=== PATIENT | female | born 1940 | race Caucasian/White ===

== ENCOUNTER 2018-03-30 19:52 | Emergency (ER) | payer MEDICARE, OTHER ==
[~2018-03-30] VITALS: Ht 157.5 cm; Wt 89.8 kg
[~2018-03-30 19:52] MED LIST: ACET325; AMLO5 PO; ANAS1 PO; ASPI325 PO; ASPI81CH; ASPI81CH PO; ATOR20 PO; BISA10S PR; CALCIUM/VIT D PO; CARV25 PO; CENTRUM SILVER1 EAC2 PO; CODLIVC PO; CVS DISPOSABLE399 ML; CVS DISPOSABLE399 ML PR; Colace100 MG PO; DICMIS75EC PO; DOCU100 PO; ENOX40I SC; ETOD400; FLAX PO; HYDACE5; HYDACE5 PO; HYDACE5325 PO; HYDR1TAB94 PO; HYDROCODON-ACE1 EAC3 PO; Hydrocodone-Ap1 EA23 PO; IBUPROFEN200 MG PO; Keflex500 MG PO; LISHYD2012 PO; LISI20; LOSA50 PO; LOSARTAN POTAS100 MG PO; LOSHYD100 PO; MECL25 PO; METO50ER; MULVITMIND PO; Milk Of Ma400 MG/5 M PO; Norco 5-325 Ta1 EACH PO; ONDA4 PO; OXYACE5T PO; POTA8 PO; Percocet 5-3251 EACH PO; SOLI5 PO; SULTRIDS PO; TORSE20 PO; TRAM50 PO; Tylophen500 MG PO; Voltaren100 GM TP; XARELTO10 MG PO; ZESTORETIC 20-121 EA PO; ZOCOR
[2018-03-30 20:51] LABS: BASOPHILS ABSOLUTE AUTO 0.02 K/mm3 (0.00-0.23); BASOPHILS PERCENT AUTO 0 % (0-2); EOSINOPHILS ABSOLUTE AUTO 0.06 K/mm3 (0.00-0.68); EOSINOPHILS PERCENT AUTO 1 % (0-6); Hematocrit 38.2 % (33.0-51.0); Hemoglobin 12.2 g/dL (11.5-16.0); IMMATURE GRAN ABSOLUTE AUTO 0.03 K/mm3 (0.00-0.10); IMMATURE GRAN PERCENT AUTO 1 % (0-1); LYMPHOCYTES ABSOLUTE AUTO 1.02 K/mm3 (0.84-5.20); LYMPHOCYTES PERCENT AUTO 16 % (21-46); MONOCYTES ABSOLUTE AUTO 0.61 K/mm3 (0.16-1.47); MONOCYTES PERCENT AUTO 9 % (4-13); Mean Corpuscular HGB 30.7 pg (26.0-34.0); Mean Corpuscular HGB Conc 31.9 g/dL (31.5-36.5); Mean Corpuscular Volume 96 fL (80-100); Mean Platelet Volume 9.5 fL (9.1-12.4); NEUTROPHILS ABSOLUTE AUTO 4.74 K/mm3 (1.96-9.15); NEUTROPHILS PERCENT AUTO 73 % (41-73); Platelet Count 159 K/mm3 (150-400); RDW Standard Deviation 42.7 fL (35.1-46.3); Red Blood Cell Count 3.97 M/mm3 (3.80-5.20); White Blood Cell Count 6.48 K/mm3 (4.00-11.30)
[2018-03-30 21:11] LABS: Alanine Aminotransfer (ALT/SGP 21 U/L (12-78); Albumin, Blood 3.4 g/dL (3.4-5.0); Albumin/Globulin Ratio 1.2 (0.8-1.8); Alk Phos 53 U/L (50-136); Anion Gap 8 mmol/L (6-16); Aspartate Aminotrans (AST/SGOT 15 U/L (12-37); Bilirubin, Total 0.2 mg/dL (0.1-1.0); Blood Urea Nitrogen 24 mg/dL (8-24); CO2, Blood 29 mmol/L (21-32); Calcium, Blood 8.9 mg/dL (8.5-10.1); Chloride, Blood 110 mmol/L (98-108); Creatinine, Blood 1.09 mg/dL (0.40-1.00); Globulin, Blood 2.9 g/dL (2.2-4.0); Glomerular Filtration Rate 52 (60-); Glucose, Blood 124 mg/dL (70-99); Potassium, Blood 3.7 mmol/L (3.5-5.5); Sodium, Blood 147 mmol/L (136-145); Total Protein, Blood 6.3 g/dL (6.4-8.2); Troponin I <0.015 ng/mL (0.000-0.040)
[2018-03-30 21:56] LABS: Source, Urine Clean Catch
[2018-03-30 22:00] LABS: Bilirubin, Urine Neg (Neg); Blood, Urine 4+ (Neg); Glucose Qualitative, Urine Neg (Neg); Ketones, Urine Neg (Neg); Leukocyte Esterase, Urine 2+ (Neg); Nitrite, Urine Neg (Neg); Protein, Urine 2+ (Neg); Urobilinogen, Urine NORM (Normal)
[2018-03-30 22:04] LABS: Appearance, Urine Clear (Clear); Color, Urine Yellow (P-Yellow)
[2018-03-30 22:06] LABS: Red Blood Cells, Urine 0-2 /hpf (0-2)
[2018-03-30 22:07] LABS: Bacteria Mod /hpf; Squamous Epithelial Cells Few /hpf (Few)
[2018-03-30] MEDS ORDERED: FURO20 PO (23:11)
[2018-03-30] MEDS ORDERED: TORSE20 PO (23:12)
[2018-03-30] MEDS ORDERED: CEPH500 PO (23:39)
[2018-03-30] MEDS ORDERED: Zofran Odt4 MG PO (23:39)
== END 2018-03-30 23:50 | disposition home or self-care (01) ==
LOC: ER 19:52
PROVIDERS: Emergency Medicine
DX: N39.0 Urinary tract infection, site not specified (principal); R55 Syncope and collapse; I10 Essential (primary) hypertension; E78.5 Hyperlipidemia, unspecified; Z79.899 Other long term (current) drug therapy; Z79.82 Long term (current) use of aspirin; Z87.891 Personal history of nicotine dependence
CPT/HCPCS: 36415; 71046; 80053; 81001; 83880; 84484; 85025; 87086; 93005; 93010; 96360; 99283; J7030

== ENCOUNTER 2018-07-08 17:32 | Emergency (ER) | payer MEDICARE, OTHER ==
[~2018-07-08] VITALS: Ht 157.5 cm; Wt 85.3 kg
[~2018-07-08 17:32] MED LIST changes: +CEPH500 PO; +FURO20 PO; +Zofran Odt4 MG PO
[2018-07-08 18:21] LABS: Source, Urine Clean Catch
[2018-07-08 18:32] LABS: Bilirubin, Urine Neg (Neg); Blood, Urine 3+ (Neg); Glucose Qualitative, Urine Neg (Neg); Ketones, Urine Neg (Neg); Leukocyte Esterase, Urine 1+ (Neg); Nitrite, Urine Neg (Neg); Protein, Urine 1+ (Neg); Urobilinogen, Urine NORM (Normal)
[2018-07-08 18:43] LABS: Color, Urine Yellow (P-Yellow)
[2018-07-08 18:44] LABS: Appearance, Urine Hazy (Clear)
[2018-07-08 18:45] LABS: Bacteria Rare /hpf; Mucus Light (0-Heavy); Red Blood Cells, Urine 0-2 /hpf (0-2); Squamous Epithelial Cells Mod /hpf (Few)
[2018-07-08 19:16] LABS: BASOPHILS ABSOLUTE AUTO 0.03 K/mm3 (0.00-0.23); BASOPHILS PERCENT AUTO 0 % (0-2); EOSINOPHILS ABSOLUTE AUTO 0.22 K/mm3 (0.00-0.68); EOSINOPHILS PERCENT AUTO 3 % (0-6); Hematocrit 44.2 % (33.0-51.0); Hemoglobin 14.3 g/dL (11.5-16.0); IMMATURE GRAN ABSOLUTE AUTO 0.02 K/mm3 (0.00-0.10); IMMATURE GRAN PERCENT AUTO 0 % (0-1); LYMPHOCYTES ABSOLUTE AUTO 2.11 K/mm3 (0.84-5.20); LYMPHOCYTES PERCENT AUTO 24 % (21-46); MONOCYTES ABSOLUTE AUTO 0.93 K/mm3 (0.16-1.47); MONOCYTES PERCENT AUTO 11 % (4-13); Mean Corpuscular HGB Conc 32.4 g/dL (31.5-36.5); Mean Corpuscular Volume 93 fL (80-100); Mean Platelet Volume 10.1 fL (9.1-12.4); NEUTROPHILS ABSOLUTE AUTO 5.47 K/mm3 (1.96-9.15); NEUTROPHILS PERCENT AUTO 62 % (41-73); Platelet Count 215 K/mm3 (150-400); RDW Coefficient Variation 12.7 % (11.7-14.2); RDW Standard Deviation 43.8 fL (35.1-46.3); Red Blood Cell Count 4.76 M/mm3 (3.80-5.20); White Blood Cell Count 8.78 K/mm3 (4.00-11.30)
[2018-07-08 19:35] LABS: Alanine Aminotransfer (ALT/SGP 23 U/L (12-78); Albumin, Blood 3.9 g/dL (3.4-5.0); Albumin/Globulin Ratio 1.1 (0.8-1.8); Alk Phos 56 U/L (50-136); Anion Gap 8 mmol/L (6-16); Aspartate Aminotrans (AST/SGOT 19 U/L (12-37); Bilirubin, Total 0.6 mg/dL (0.1-1.0); Blood Urea Nitrogen 33 mg/dL (8-24); CO2, Blood 28 mmol/L (21-32); Chloride, Blood 103 mmol/L (98-108); Creatinine, Blood 0.83 mg/dL (0.40-1.00); Globulin, Blood 3.6 g/dL (2.2-4.0); Glomerular Filtration Rate >60 (60-); Glucose, Blood 114 mg/dL (70-99); Potassium, Blood 3.8 mmol/L (3.5-5.5); Sodium, Blood 139 mmol/L (136-145); Total Protein, Blood 7.5 g/dL (6.4-8.2)
[2018-07-08] MEDS ORDERED: CEFD300 PO (19:39)
== END 2018-07-08 20:21 | disposition home or self-care (01) ==
LOC: ER 17:32
PROVIDERS: Emergency Medicine
DX: N39.0 Urinary tract infection, site not specified (principal); I10 Essential (primary) hypertension; Z79.899 Other long term (current) drug therapy; Z87.891 Personal history of nicotine dependence
CPT/HCPCS: 36415; 80053; 81001; 85025; 87086; 96361; 96374; 99283-25; J2405; J7030

== ENCOUNTER 2018-07-11 16:06 | Emergency (ER) | payer MEDICARE, OTHER ==
[~2018-07-11] VITALS: Ht 157.5 cm; Wt 85.3 kg
[~2018-07-11 16:06] MED LIST changes: +CEFD300 PO
[2018-07-11 18:44] LABS: Alanine Aminotransfer (ALT/SGP 18 U/L (12-78); Albumin, Blood 3.7 g/dL (3.4-5.0); Albumin/Globulin Ratio 1.2 (0.8-1.8); Alk Phos 55 U/L (50-136); Anion Gap 6 mmol/L (6-16); Aspartate Aminotrans (AST/SGOT 17 U/L (12-37); Bilirubin, Total 0.4 mg/dL (0.1-1.0); Blood Urea Nitrogen 17 mg/dL (8-24); Bun/Creatinine Ratio 22.3 (12.0-20.0); CO2, Blood 29 mmol/L (21-32); Calcium, Blood 9.2 mg/dL (8.5-10.1); Chloride, Blood 107 mmol/L (98-108); Creatinine, Blood 0.76 mg/dL (0.40-1.00); Globulin, Blood 3.2 g/dL (2.2-4.0); Glomerular Filtration Rate >60 (60-); Glucose, Blood 102 mg/dL (70-99); Potassium, Blood 3.8 mmol/L (3.5-5.5); Sodium, Blood 142 mmol/L (136-145); Total Protein, Blood 6.9 g/dL (6.4-8.2)
[2018-07-11 19:00] LABS: BASOPHILS ABSOLUTE AUTO 0.01 K/mm3 (0.00-0.23); BASOPHILS PERCENT AUTO 0 % (0-2); EOSINOPHILS ABSOLUTE AUTO 0.19 K/mm3 (0.00-0.68); EOSINOPHILS PERCENT AUTO 3 % (0-6); Hemoglobin 12.5 g/dL (11.5-16.0); IMMATURE GRAN ABSOLUTE AUTO 0.02 K/mm3 (0.00-0.10); IMMATURE GRAN PERCENT AUTO 0 % (0-1); LYMPHOCYTES ABSOLUTE AUTO 1.38 K/mm3 (0.84-5.20); LYMPHOCYTES PERCENT AUTO 23 % (21-46); MONOCYTES ABSOLUTE AUTO 0.68 K/mm3 (0.16-1.47); MONOCYTES PERCENT AUTO 11 % (4-13); Mean Corpuscular HGB Conc 31.3 g/dL (31.5-36.5); Mean Corpuscular Volume 96 fL (80-100); Mean Platelet Volume 9.5 fL (9.1-12.4); NEUTROPHILS ABSOLUTE AUTO 3.73 K/mm3 (1.96-9.15); NEUTROPHILS PERCENT AUTO 62 % (41-73); Platelet Count 159 K/mm3 (150-400); RDW Coefficient Variation 12.6 % (11.7-14.2); RDW Standard Deviation 44.9 fL (35.1-46.3); Red Blood Cell Count 4.17 M/mm3 (3.80-5.20); White Blood Cell Count 6.01 K/mm3 (4.00-11.30)
[2018-07-11 19:24] LABS: Source, Urine Voided
[2018-07-11 19:30] LABS: Bilirubin, Urine Neg (Neg); Blood, Urine 4+ (Neg); Glucose Qualitative, Urine Neg (Neg); Ketones, Urine Neg (Neg); Leukocyte Esterase, Urine 1+ (Neg); Nitrite, Urine Neg (Neg); Protein, Urine 2+ (Neg); Urobilinogen, Urine NORM (Normal)
[2018-07-11 19:36] LABS: Appearance, Urine Clear (Clear); Color, Urine Yellow (P-Yellow)
[2018-07-11 19:37] LABS: Bacteria Few /hpf; Squamous Epithelial Cells Few /hpf (Few)
[2018-07-11] MEDS ORDERED: HYDR1TAB94 PO (19:49)
== END 2018-07-11 20:08 | disposition home or self-care (01) ==
LOC: ER 16:06
PROVIDERS: Emergency Medicine
DX: Z79.899 Other long term (current) drug therapy (principal); I10 Essential (primary) hypertension; Z87.891 Personal history of nicotine dependence
CPT/HCPCS: 36415; 74176; 80053; 81001; 85025; 87086; J2405; J3010; J7030

== ENCOUNTER 2019-02-17 19:25 | Emergency (ER) | payer MEDICARE, OTHER ==
[~2019-02-17] VITALS: Ht 157.5 cm; Wt 83.0 kg
[2019-02-17 21:41] LABS: BASOPHILS ABSOLUTE AUTO 0.01 K/mm3 (0.00-0.23); BASOPHILS PERCENT AUTO 0 % (0-2); EOSINOPHILS ABSOLUTE AUTO 0.14 K/mm3 (0.00-0.68); EOSINOPHILS PERCENT AUTO 2 % (0-6); Hematocrit 40.1 % (33.0-51.0); Hemoglobin 12.7 g/dL (11.5-16.0); IMMATURE GRAN ABSOLUTE AUTO 0.02 K/mm3 (0.00-0.10); IMMATURE GRAN PERCENT AUTO 0 % (0-1); LYMPHOCYTES ABSOLUTE AUTO 0.68 K/mm3 (0.84-5.20); LYMPHOCYTES PERCENT AUTO 10 % (21-46); MONOCYTES ABSOLUTE AUTO 0.81 K/mm3 (0.16-1.47); MONOCYTES PERCENT AUTO 12 % (4-13); Mean Corpuscular HGB 30.6 pg (26.0-34.0); Mean Corpuscular HGB Conc 31.7 g/dL (31.5-36.5); Mean Corpuscular Volume 97 fL (80-100); Mean Platelet Volume 9.9 fL (9.1-12.4); NEUTROPHILS ABSOLUTE AUTO 5.41 K/mm3 (1.96-9.15); NEUTROPHILS PERCENT AUTO 77 % (41-73); Platelet Count 168 K/mm3 (150-400); RDW Coefficient Variation 12.1 % (11.7-14.2); Red Blood Cell Count 4.15 M/mm3 (3.80-5.20); White Blood Cell Count 7.07 K/mm3 (4.00-11.30)
[2019-02-17] MEDS ORDERED: CEPH500 PO (22:06)
[2019-02-17 22:23] LABS: Appearance, Urine Clear (Clear); Color, Urine Yellow (P-Yellow); Source, Urine Clean Catch; Specific Gravity, Urine 1.015 (1.003-1.022)
[2019-02-17 22:24] LABS: Amorphous Light (0-Heavy); Bacteria Few /hpf; Bilirubin, Urine 2+ (Neg); Blood, Urine 3+ (Neg); Glucose Qualitative, Urine Neg (Neg); Ketones, Urine Neg (Neg); Leukocyte Esterase, Urine Neg (Neg); Mucus Light (0-Heavy); Nitrite, Urine Pos (Neg); Protein, Urine 1+ (Neg); Red Blood Cells, Urine 0-2 /hpf (0-2); Squamous Epithelial Cells Not Seen /hpf (Few); Urobilinogen, Urine 2+ (Normal); White Blood Cells, Urine Rare /hpf (0-5)
== END 2019-02-17 22:32 | disposition home or self-care (01) ==
LOC: ER 19:25
PROVIDERS: Physician Assistant
DX: N39.0 Urinary tract infection, site not specified (principal); I10 Essential (primary) hypertension; M19.90 Unspecified osteoarthritis, unspecified site; M41.9 Scoliosis, unspecified; Z87.891 Personal history of nicotine dependence
CPT/HCPCS: 36415; 74176; 81001; 83690; 85025; 87086; 96374; 99284-25; J1170; P9612

== ENCOUNTER → 2019-02-23 | Outpatient (CLI) | payer MEDICARE, OTHER ==
[~2019-02-23] MED LIST changes: +Zofran4 MG PO
[2019-02-25 15:34] LABS: C DIFFICILE BY DNA AMP Positive (Negative)
== END | disposition home or self-care (01) ==
LOC: LAB 15:42 → LAB SHORT 15:42
PROVIDERS: Emergency Medicine
DX: R19.7 Diarrhea, unspecified (principal)
CPT/HCPCS: 87324; 87493

== ENCOUNTER 2019-06-23 20:01 | Emergency (ER) | payer MEDICARE, OTHER ==
[~2019-06-23] VITALS: Ht 157.5 cm; Wt 77.1 kg
[2019-06-23 20:51] LABS: BASOPHILS ABSOLUTE AUTO 0.03 K/mm3 (0.00-0.23); BASOPHILS PERCENT AUTO 1 % (0-2); EOSINOPHILS ABSOLUTE AUTO 0.12 K/mm3 (0.00-0.68); EOSINOPHILS PERCENT AUTO 2 % (0-6); Hematocrit 39.1 % (33.0-51.0); Hemoglobin 12.6 g/dL (11.5-16.0); IMMATURE GRAN ABSOLUTE AUTO 0.01 K/mm3 (0.00-0.10); IMMATURE GRAN PERCENT AUTO 0 % (0-1); LYMPHOCYTES ABSOLUTE AUTO 1.43 K/mm3 (0.84-5.20); LYMPHOCYTES PERCENT AUTO 26 % (21-46); MONOCYTES PERCENT AUTO 11 % (4-13); Mean Corpuscular HGB 30.5 pg (26.0-34.0); Mean Corpuscular HGB Conc 32.2 g/dL (31.5-36.5); Mean Corpuscular Volume 95 fL (80-100); Mean Platelet Volume 9.7 fL (9.1-12.4); NEUTROPHILS ABSOLUTE AUTO 3.26 K/mm3 (1.96-9.15); NEUTROPHILS PERCENT AUTO 60 % (41-73); Platelet Count 166 K/mm3 (150-400); RDW Coefficient Variation 12.4 % (11.7-14.2); RDW Standard Deviation 43.1 fL (35.1-46.3); Red Blood Cell Count 4.13 M/mm3 (3.80-5.20); White Blood Cell Count 5.45 K/mm3 (4.00-11.30)
[2019-06-23 21:09] LABS: Alanine Aminotransfer (ALT/SGP 14 U/L (12-78); Albumin, Blood 3.6 g/dL (3.4-5.0); Albumin/Globulin Ratio 1.2 (0.8-1.8); Alk Phos 47 U/L (50-136); Anion Gap 4 mmol/L (6-16); Aspartate Aminotrans (AST/SGOT 16 U/L (12-37); Bilirubin, Total 0.2 mg/dL (0.1-1.0); Blood Urea Nitrogen 20 mg/dL (8-24); Bun/Creatinine Ratio 27.6 (12.0-20.0); CO2, Blood 29 mmol/L (21-32); Calcium, Blood 9.1 mg/dL (8.5-10.1); Chloride, Blood 108 mmol/L (98-108); Creatinine, Blood 0.72 mg/dL (0.40-1.00); Glomerular Filtration Rate >60 (60-); Glucose, Blood 96 mg/dL (70-99); Potassium, Blood 3.8 mmol/L (3.5-5.5); Sodium, Blood 141 mmol/L (136-145); Total Protein, Blood 6.6 g/dL (6.4-8.2)
[2019-06-23 23:22] LABS: Source, Urine Clean Catch
[2019-06-23 23:25] LABS: Bilirubin, Urine Neg (Neg); Blood, Urine 3+ (Neg); Glucose Qualitative, Urine Neg (Neg); Ketones, Urine Neg (Neg); Leukocyte Esterase, Urine Neg (Neg); Nitrite, Urine Neg (Neg); Protein, Urine Neg (Neg); Specific Gravity, Urine 1.015 (1.003-1.022); Urobilinogen, Urine NORM (Normal)
[2019-06-23 23:27] LABS: Appearance, Urine Clear (Clear); Color, Urine Yellow (P-Yellow)
[2019-06-23 23:48] LABS: Bacteria Not Seen /hpf; Red Blood Cells, Urine Rare /hpf (0-2); Squamous Epithelial Cells Not Seen /hpf (Few); White Blood Cells, Urine Not Seen /hpf (0-5)
== END 2019-06-24 01:28 | disposition home or self-care (01) ==
LOC: ER 20:01
PROVIDERS: Physician Assistant
DX: R10.13 Epigastric pain (principal); I10 Essential (primary) hypertension; Z87.891 Personal history of nicotine dependence; Z79.899 Other long term (current) drug therapy; Z79.891 Long term (current) use of opiate analgesic
CPT/HCPCS: 36415; 74177; 76705; 80053; 81001; 83690; 85025; 93005; 93010; 96374; 99284-25; J2405; Q9967

== ENCOUNTER → 2019-08-24 | Outpatient (CLI) | payer MEDICARE, OTHER ==
[~2019-08-24] MED LIST changes: +TORSE20
== END | disposition home or self-care (01) ==
LOC: LAB SHORT 12:09 → LAB EV 12:09
DX: N39.0 Urinary tract infection, site not specified (principal)
CPT/HCPCS: 87086

== ENCOUNTER 2019-08-26 16:06 | Inpatient (IN) | payer MEDICARE, OTHER ==
[~2019-08-26] VITALS: Ht 157.5 cm; Wt 76.3 kg
[~2019-08-26 16:06] MED LIST changes: -TORSE20
[2019-08-26] MEDS ORDERED: TORSE20 (18:23)
[2019-08-26] MEDS ORDERED: ANAS1 PO (19:38)
[2019-08-26] MEDS ORDERED: LOSARTAN POTAS100 MG PO (19:39)
--- NOTE | 2019-08-27 04:42 | NUR ---
SHIFT SUMMARY PT NEW ED ADMIT THIS EVENING. REPORTS ABD PAIN THAT SHE DESCRIBES "CRAMPING" THAT SPANS ACROSS HER ENTIRE UPPER ABD. TENDER TO THE TOUCH. MEDICATED W/ 25 MCG FENTANYL X 2. PT SLEPT OFF AND ON THROUGHOUT THE NIGHT. ONE EPISODE OF NAUSEA. ZOFRAN GIVEN. BLOOD PRESSURE ELEVATED BUT IMPROVED THIS AM. PT DID REPORT THAT SHE WAS UNABLE TO TAKE ANY OF HER HOME MEDICATIONS YESTERDAY. SON AT BEDSIDE. PT DID REPORT HAVING LOOSE STOOLS AT HOME AND HAS HX OF CDIFF, ISOLATION PRECAUTIONS INITIATED. PT HAS HAD NO STOOLS SINCE ADMISSION. PT RESTING IN BED AT THIS TIME. WILL CONTINUE TO MONITOR.
[2019-08-27 05:05] LABS: Hematocrit 34.9 % (33.0-51.0); Hemoglobin 11.3 g/dL (11.5-16.0); Mean Corpuscular HGB 30.3 pg (26.0-34.0); Mean Corpuscular HGB Conc 32.4 g/dL (31.5-36.5); Mean Corpuscular Volume 94 fL (80-100); Mean Platelet Volume 9.7 fL (9.1-12.4); Platelet Count 130 K/mm3 (150-400); RDW Coefficient Variation 12.2 % (11.7-14.2); Red Blood Cell Count 3.73 M/mm3 (3.80-5.20); White Blood Cell Count 7.37 K/mm3 (4.00-11.30)
[2019-08-27 11:23] LABS: Source, Urine Clean Catch
[2019-08-27 11:35] LABS: Bilirubin, Urine Neg (Neg); Blood, Urine 3+ (Neg); Glucose Qualitative, Urine Neg (Neg); Ketones, Urine 1+ (Neg); Leukocyte Esterase, Urine Neg (Neg); Nitrite, Urine Neg (Neg); Protein, Urine 1+ (Neg); Urobilinogen, Urine NORM (Normal); pH, Urine 6.5 (5.0-8.0)
[2019-08-27 11:50] LABS: Appearance, Urine Clear (Clear); Color, Urine Yellow (P-Yellow)
[2019-08-27 11:51] LABS: Calcium Oxalate Crystals Mod /hpf; White Blood Cells, Urine 0-2 /hpf (0-5)
[2019-08-27 11:54] LABS: Bacteria Few /hpf; Squamous Epithelial Cells Few /hpf (Few)
--- NOTE | 2019-08-27 16:19 | NUR ---
SHIFT SUMMARY DR SUTTON CONSULTED/ROUNDED TODAY. PLAN IS FOR OBSERVATION AND SEE HOW SHE TOLERATES CLEAR LIQUID DIET, THEN RETURN HOME WITH SON. NO SURGICAL INTERVENTION PLANNED. DENIES N/V/D THIS SHIFT. I WAS ABLE TO GET THE UA, BUT NO STOOL FOR STOOL SAMPLE YET. PT STATES SHE HAS INTERMITTENT RUQ/LUQ ABD PAIN. IV ANTIBIOTICS SCHEDULED. CONTACT PRECAUTIONS FOR CDIFF. USES FWW AT BASELINE.
[2019-08-28 02:44] LABS: Adenovirus F 40/41 Not Detected (NOT DETECT); Astrovirus Not Detected (NOT DETECT); Campylobacter Sp Not Detected (NOT DETECT); Cryptosporidium Not Detected (NOT DETECT); Cyclospora Cayetanensis Not Detected (NOT DETECT); E. Coli O157 Not Detected (NOT DETECT); Entamoeba Histolytica Not Detected (NOT DETECT); Enteroaggregative E. coli-EAEC Not Detected (NOT DETECT); Enteropathogenic E. coli-EPEC Not Detected (NOT DETECT); Enterotoxigenic E. coli-ETEC Not Detected (NOT DETECT); Giardia Lamblia Not Detected (NOT DETECT); Norovirus GI/GII Not Detected (NOT DETECT); Plesiomonas Shigelloides Not Detected (NOT DETECT); Rotavirus A Not Detected (NOT DETECT); Salmonella Sp Not Detected (NOT DETECT); Sapovirus Not Detected (NOT DETECT); Shiga Toxin-prod E. coli-STEC Not Detected (NOT DETECT); Shigella/Enteroin E. coli-EIEC Not Detected (NOT DETECT); Vibrio Cholerae Not Detected (NOT DETECT); Vibrio Sp Not Detected (NOT DETECT); Yersinia Enterocolitica Not Detected (NOT DETECT)
[2019-08-28 04:52] LABS: BASOPHILS ABSOLUTE AUTO 0.02 K/mm3 (0.00-0.23); BASOPHILS PERCENT AUTO 0 % (0-2); EOSINOPHILS PERCENT AUTO 2 % (0-6); Hematocrit 37.2 % (33.0-51.0); Hemoglobin 11.7 g/dL (11.5-16.0); IMMATURE GRAN ABSOLUTE AUTO 0.02 K/mm3 (0.00-0.10); IMMATURE GRAN PERCENT AUTO 0 % (0-1); LYMPHOCYTES ABSOLUTE AUTO 0.86 K/mm3 (0.84-5.20); LYMPHOCYTES PERCENT AUTO 17 % (21-46); MONOCYTES ABSOLUTE AUTO 0.68 K/mm3 (0.16-1.47); MONOCYTES PERCENT AUTO 13 % (4-13); Mean Corpuscular HGB 30.2 pg (26.0-34.0); Mean Corpuscular HGB Conc 31.5 g/dL (31.5-36.5); Mean Corpuscular Volume 96 fL (80-100); NEUTROPHILS ABSOLUTE AUTO 3.52 K/mm3 (1.96-9.15); NEUTROPHILS PERCENT AUTO 68 % (41-73); Platelet Count 154 K/mm3 (150-400); Red Blood Cell Count 3.88 M/mm3 (3.80-5.20)
[2019-08-28 05:17] LABS: Anion Gap 6 mmol/L (6-16); Blood Urea Nitrogen 12 mg/dL (8-24); CO2, Blood 29 mmol/L (21-32); Calcium, Blood 8.4 mg/dL (8.5-10.1); Chloride, Blood 110 mmol/L (98-108); Glomerular Filtration Rate >60 (60-); Glucose, Blood 92 mg/dL (70-99); Potassium, Blood 3.3 mmol/L (3.5-5.5); Sodium, Blood 145 mmol/L (136-145)
--- NOTE | 2019-08-28 05:33 | NUR ---
SUMMARY NO ACUTE CHANGES NOTED FROM ASSESSMENT. VSS, RESP UNLABORED, ON ROOM AIR. PT REMAINS A&O X4. PT HAD 2 BM'S THROUGH THE NIGHT AND STATES "THEY ARE GETTING MORE FORMED", A STOOL SAMPLE WAS COLLECTED AND SENT PER ORDERS. PT C/O ABD PAIN 07/22, IV FENT WAS GIVEN X1 PER PT REQUEST. IV ABX INFUSED PER EMAR. PT IS A 1 ASSIST TO THE BATHROOM USING FWW, HER SON IS AT THE BEDSIDE AND ASSIST'S WITH CARE. CALL LIGHT IN REACH, MARY.
--- NOTE | 2019-08-28 11:30 | NUR ---
LATE ENTRY FOR 1130. WAS IN ROOM WITH DR DE SOUZA WHEN HE WAS ASSESSING PATIENT. ASKED DR DE SOUZA ABOUT HOW PATIENT'S C-DIFF WAS TO BE TREATED SHE WAS CURRENTLY ON NOTHING FOR IT, STATED THAT GI PANEL RESULTS INDICATED THAT PATIENT WAS COLONIZED BY C-DIFF BUT DID NOT ACTUALLY HAVE ACTIVE C-DIFF. DR DE SOUZA STATED SHE DID NOT NEED ABX COVERAGE FOR C-DIFF SINCE PT DOES NOT HAVE ACTIVE INFECTION.
--- NOTE | 2019-08-28 13:55 | NUR ---
PATIENT COMPLAINED OF DRY, SORE THROAT. GAVE PATIENT SOME WARM SALT WATER TO GARGLE. ALSO GAVE THE PATIENT SOME MOUTH MOISURIZER ANOTHER OPTION.
--- NOTE | 2019-08-28 15:17 | NUR ---
SHIFT SUMMARY THE PATIENT HAS HAD AN UNEVENTFUL DAY. HIGH BLOOD PRESSURE THIS MORNING WHICH RESPONDED WELL TO AM MEDS. CONTINUES ON IV ABX WITHOUT S/SX OF ADVERSE REACTIONS NOTED OR REPORTED. NO ACUTE CHANGES TO REPORT AT THIS TIME. WILL CONTINUE TO MONITOR AND PROVIDE CARE NEEDED.
[2019-08-29 06:45] LABS: BASOPHILS ABSOLUTE AUTO 0.02 K/mm3 (0.00-0.23); BASOPHILS PERCENT AUTO 0 % (0-2); EOSINOPHILS ABSOLUTE AUTO 0.11 K/mm3 (0.00-0.68); EOSINOPHILS PERCENT AUTO 2 % (0-6); Hemoglobin 11.8 g/dL (11.5-16.0); IMMATURE GRAN ABSOLUTE AUTO 0.02 K/mm3 (0.00-0.10); IMMATURE GRAN PERCENT AUTO 0 % (0-1); LYMPHOCYTES PERCENT AUTO 19 % (21-46); MONOCYTES ABSOLUTE AUTO 0.62 K/mm3 (0.16-1.47); MONOCYTES PERCENT AUTO 13 % (4-13); Mean Corpuscular HGB 30.5 pg (26.0-34.0); Mean Corpuscular HGB Conc 31.9 g/dL (31.5-36.5); Mean Corpuscular Volume 96 fL (80-100); Mean Platelet Volume 9.6 fL (9.1-12.4); NEUTROPHILS ABSOLUTE AUTO 3.16 K/mm3 (1.96-9.15); NEUTROPHILS PERCENT AUTO 66 % (41-73); Platelet Count 162 K/mm3 (150-400); RDW Standard Deviation 42.2 fL (35.1-46.3); Red Blood Cell Count 3.87 M/mm3 (3.80-5.20); White Blood Cell Count 4.83 K/mm3 (4.00-11.30)
[2019-08-29 07:08] LABS: Anion Gap 5 mmol/L (6-16); Blood Urea Nitrogen 10 mg/dL (8-24); Bun/Creatinine Ratio 13.5 (12.0-20.0); CO2, Blood 31 mmol/L (21-32); Calcium, Blood 8.7 mg/dL (8.5-10.1); Chloride, Blood 109 mmol/L (98-108); Creatinine, Blood 0.74 mg/dL (0.40-1.00); Glomerular Filtration Rate >60 (60-); Glucose, Blood 97 mg/dL (70-99); Potassium, Blood 3.3 mmol/L (3.5-5.5); Sodium, Blood 145 mmol/L (136-145)
--- NOTE | 2019-08-29 08:01 | NUR ---
SUMMARY PTS BP INCREASING THIS AM. NOTED YESTERDAY AM WELL. PT NOW REPORTS HAS HAD VERTIGO AT HOME AFTER AM MEDS AND WAITS TO AMBULATE.DISCUSSED TREND AND MED TIMES WITH DAY RN WHO AGREES TO FOLLOW UP.
--- NOTE | 2019-08-29 15:12 | NUR ---
LOOSE BM NOTED LIQUID LOOSE BM REPORTED BY TATTOO TECHNICIAN
--- NOTE | 2019-08-29 18:16 | NUR ---
SHIFT SUMMARY PT'S SON IS QUITE ANXIOUS REGARDING PT'S CARE. PT'S IV LEAKED AND WAS REMOVED. A NEW IV WAS STARTED BY PROCEDURE NURSE. PT RECEIVING SCHEDULED IV ANTIBIOTICS. PT HAS EXPERIENCED LOOSE BM'S LATER IN THIS SHIFT. SHE IS TOLERATING ADVANCING THE DIET WELL. NO N/V
[2019-08-30 05:27] LABS: BASOPHILS ABSOLUTE AUTO 0.03 K/mm3 (0.00-0.23); BASOPHILS PERCENT AUTO 1 % (0-2); EOSINOPHILS ABSOLUTE AUTO 0.19 K/mm3 (0.00-0.68); EOSINOPHILS PERCENT AUTO 3 % (0-6); Hematocrit 37.3 % (33.0-51.0); Hemoglobin 11.9 g/dL (11.5-16.0); IMMATURE GRAN ABSOLUTE AUTO 0.03 K/mm3 (0.00-0.10); IMMATURE GRAN PERCENT AUTO 1 % (0-1); LYMPHOCYTES ABSOLUTE AUTO 1.18 K/mm3 (0.84-5.20); LYMPHOCYTES PERCENT AUTO 20 % (21-46); MONOCYTES ABSOLUTE AUTO 0.69 K/mm3 (0.16-1.47); MONOCYTES PERCENT AUTO 12 % (4-13); Mean Corpuscular HGB 30.6 pg (26.0-34.0); Mean Corpuscular HGB Conc 31.9 g/dL (31.5-36.5); Mean Corpuscular Volume 96 fL (80-100); NEUTROPHILS ABSOLUTE AUTO 3.66 K/mm3 (1.96-9.15); NEUTROPHILS PERCENT AUTO 63 % (41-73); Platelet Count 168 K/mm3 (150-400); RDW Coefficient Variation 12.1 % (11.7-14.2); RDW Standard Deviation 42.5 fL (35.1-46.3); Red Blood Cell Count 3.89 M/mm3 (3.80-5.20); White Blood Cell Count 5.78 K/mm3 (4.00-11.30)
[2019-08-30 05:52] LABS: Anion Gap 5 mmol/L (6-16); Blood Urea Nitrogen 16 mg/dL (8-24); Bun/Creatinine Ratio 20.9 (12.0-20.0); CO2, Blood 30 mmol/L (21-32); Calcium, Blood 8.9 mg/dL (8.5-10.1); Chloride, Blood 108 mmol/L (98-108); Creatinine, Blood 0.77 mg/dL (0.40-1.00); Glomerular Filtration Rate >60 (60-); Glucose, Blood 99 mg/dL (70-99); Potassium, Blood 3.8 mmol/L (3.5-5.5); Sodium, Blood 143 mmol/L (136-145)
--- NOTE | 2019-08-30 07:30 | NUR ---
SHIFT SUMMARY PT A/O NO C/O PAIN. SAYS RUMBLING IN ABD HAS STOPPED BUT SAYS SHE IS STILL URINATING AND HAVING BMS A LOT. WHEN ASKED IF THE BM WAS LIQUID SHE SAID IT WAS "REGULAR" STOOL. BOTH HER SON AND HER BOTH SAY THE IV ABX ARE MAKING HER URINATE AND BM A LOT AND REFUSED THE AM DOSE OF ABX SAYING THE DR HAD SAID SHE "COULD STOP THE ABX NOW". SHE WAS ABLE TO SLEEP T/O BUT SAYS SHE HAD TO USE BA A LOT. CALL LIGHT IN REACH.
[2019-08-30] MEDS ORDERED: ONDA4ODT MM (10:15)
[2019-08-30] MEDS ORDERED: Augmentin 875-1 EACH PO (10:16)
[2019-08-30] MEDS ORDERED: Kaon-Cl40 MEQ/15 PO (10:18)
[2019-08-30] MEDS ORDERED: Florastor250 MG PO (10:18)
[2019-08-30] MEDS ORDERED: SENN187 PO (10:19)
--- NOTE | 2019-08-30 11:35 | NUR ---
Discharge Summary A/Ox4. Patient discharged to home via personal vehicle driven by son, escorted via w/c by INTERNET SALES DIRECTOR. IV removed, WNL. Discharge and educational materials reviewed with patient, no questions at this time. F/U appointments are scheduled and given to patient. Personal belongings sent home including purse and walker. Meds faxed to preferred pharmacy.
== END 2019-08-30 11:35 | disposition home or self-care (01) | DRG 392 ==
LOC: ER 16:06 → MEDS 16:07 → ENPENDDIS 08-30 11:00 → MEDS 08-30 11:35
PROVIDERS: Internal Medicine; ADMIT Hospitalist
DX: K57.20 Diverticulitis of large intestine with perforation and abscess without bleeding (principal); N39.0 Urinary tract infection, site not specified; I50.32 Chronic diastolic (congestive) heart failure; A04.72 Enterocolitis due to Clostridium difficile, not specified as recurrent; I11.0 Hypertensive heart disease with heart failure; E87.6 Hypokalemia; R19.7 Diarrhea, unspecified; M81.0 Age-related osteoporosis without current pathological fracture; M19.90 Unspecified osteoarthritis, unspecified site; Z87.891 Personal history of nicotine dependence; Z79.811 Long term (current) use of aromatase inhibitors; Z79.899 Other long term (current) drug therapy; Z85.3 Personal history of malignant neoplasm of breast
CPT/HCPCS: 0097U; 36415; 74022; 74177; 80048; 80053; 81001; 83690; 85025; 85027; 87086; 87324; 96361; 96365; 96366; 96367; 96368; 96375; 96376; 99284; G0378; J0744; J2405; J2543; J3010; J7030; J7050; Q9967

== ENCOUNTER 2019-09-11 19:27 | Emergency (ER) | payer MEDICARE, OTHER ==
[~2019-09-11] VITALS: Ht 157.5 cm; Wt 77.1 kg
[~2019-09-11 19:27] MED LIST changes: +Augmentin 875-1 EACH PO; +Florastor250 MG PO; +Kaon-Cl40 MEQ/15 PO; +ONDA4ODT MM; +SENN187 PO; +TORSE20
[2019-09-11 20:35] LABS: BASOPHILS ABSOLUTE AUTO 0.02 K/mm3 (0.00-0.23); BASOPHILS PERCENT AUTO 0 % (0-2); EOSINOPHILS ABSOLUTE AUTO 0.18 K/mm3 (0.00-0.68); EOSINOPHILS PERCENT AUTO 3 % (0-6); Hematocrit 37.7 % (33.0-51.0); Hemoglobin 11.8 g/dL (11.5-16.0); IMMATURE GRAN ABSOLUTE AUTO 0.01 K/mm3 (0.00-0.10); IMMATURE GRAN PERCENT AUTO 0 % (0-1); LYMPHOCYTES ABSOLUTE AUTO 1.32 K/mm3 (0.84-5.20); LYMPHOCYTES PERCENT AUTO 24 % (21-46); MONOCYTES ABSOLUTE AUTO 0.72 K/mm3 (0.16-1.47); MONOCYTES PERCENT AUTO 13 % (4-13); Mean Corpuscular HGB 30.6 pg (26.0-34.0); Mean Corpuscular HGB Conc 31.3 g/dL (31.5-36.5); Mean Corpuscular Volume 98 fL (80-100); Mean Platelet Volume 10.3 fL (9.1-12.4); NEUTROPHILS ABSOLUTE AUTO 3.22 K/mm3 (1.96-9.15); NEUTROPHILS PERCENT AUTO 59 % (41-73); Platelet Count 181 K/mm3 (150-400); RDW Coefficient Variation 12.1 % (11.7-14.2); RDW Standard Deviation 43.8 fL (35.1-46.3); Red Blood Cell Count 3.86 M/mm3 (3.80-5.20); White Blood Cell Count 5.47 K/mm3 (4.00-11.30)
[2019-09-11 20:48] LABS: Alanine Aminotransfer (ALT/SGP 13 U/L (12-78); Albumin, Blood 3.2 g/dL (3.4-5.0); Alk Phos 46 U/L (50-136); Anion Gap 5 mmol/L (6-16); Aspartate Aminotrans (AST/SGOT 17 U/L (12-37); Bilirubin, Total 0.3 mg/dL (0.1-1.0); Blood Urea Nitrogen 23 mg/dL (8-24); Bun/Creatinine Ratio 30.2 (12.0-20.0); CO2, Blood 31 mmol/L (21-32); Calcium, Blood 9.4 mg/dL (8.5-10.1); Chloride, Blood 108 mmol/L (98-108); Creatinine, Blood 0.76 mg/dL (0.40-1.00); Globulin, Blood 3.1 g/dL (2.2-4.0); Glomerular Filtration Rate >60 (60-); Glucose, Blood 94 mg/dL (70-99); Sodium, Blood 144 mmol/L (136-145); Total Protein, Blood 6.3 g/dL (6.4-8.2)
[2019-09-11 21:09] LABS: Source, Urine Clean Catch
[2019-09-11 21:14] LABS: Bilirubin, Urine Neg (Neg); Blood, Urine 2+ (Neg); Glucose Qualitative, Urine Neg (Neg); Ketones, Urine Neg (Neg); Leukocyte Esterase, Urine 2+ (Neg); Nitrite, Urine Neg (Neg); Protein, Urine Neg (Neg); Urobilinogen, Urine NORM (Normal)
[2019-09-11 21:23] LABS: Appearance, Urine Clear (Clear); Color, Urine Pale Yellow (P-Yellow)
[2019-09-11 21:26] LABS: Amorphous Light (0-Heavy); Bacteria Few /hpf; Red Blood Cells, Urine Not Seen /hpf (0-2); Squamous Epithelial Cells Rare /hpf (Few); White Blood Cells, Urine 0-2 /hpf (0-5)
[2019-09-11] MEDS ORDERED: Bentyl10 MG PO (21:39)
== END 2019-09-11 22:45 | disposition home or self-care (01) ==
LOC: ER 19:27 → SURS 21:36 → ER 21:36
PROVIDERS: Physician Assistant
DX: R10.84 Generalized abdominal pain (principal); I10 Essential (primary) hypertension; Z79.899 Other long term (current) drug therapy; Z87.891 Personal history of nicotine dependence
CPT/HCPCS: 36415; 74177; 80053; 81001; 83690; 84484; 85025; 87086; 93005; 93010; 96360-59; 99284-25; J7030; Q9967

== ENCOUNTER 2019-09-29 22:15 | Emergency (ER) | payer MEDICARE, OTHER ==
[~2019-09-29] VITALS: Ht 157.5 cm; Wt 77.1 kg
[~2019-09-29 22:15] MED LIST changes: +Bentyl10 MG PO
[2019-09-29 23:04] LABS: BASOPHILS ABSOLUTE AUTO 0.02 K/mm3 (0.00-0.23); BASOPHILS PERCENT AUTO 0 % (0-2); EOSINOPHILS ABSOLUTE AUTO 0.16 K/mm3 (0.00-0.68); EOSINOPHILS PERCENT AUTO 3 % (0-6); Hematocrit 40.6 % (33.0-51.0); Hemoglobin 13.1 g/dL (11.5-16.0); IMMATURE GRAN ABSOLUTE AUTO 0.01 K/mm3 (0.00-0.10); IMMATURE GRAN PERCENT AUTO 0 % (0-1); LYMPHOCYTES ABSOLUTE AUTO 1.43 K/mm3 (0.84-5.20); LYMPHOCYTES PERCENT AUTO 26 % (21-46); MONOCYTES PERCENT AUTO 11 % (4-13); Mean Corpuscular HGB 29.9 pg (26.0-34.0); Mean Corpuscular HGB Conc 32.3 g/dL (31.5-36.5); Mean Corpuscular Volume 93 fL (80-100); Mean Platelet Volume 9.6 fL (9.1-12.4); NEUTROPHILS ABSOLUTE AUTO 3.24 K/mm3 (1.96-9.15); NEUTROPHILS PERCENT AUTO 59 % (41-73); Platelet Count 165 K/mm3 (150-400); RDW Coefficient Variation 12.1 % (11.7-14.2); RDW Standard Deviation 41.8 fL (35.1-46.3); Red Blood Cell Count 4.38 M/mm3 (3.80-5.20); White Blood Cell Count 5.46 K/mm3 (4.00-11.30)
[2019-09-29 23:19] LABS: Alanine Aminotransfer (ALT/SGP 15 U/L (12-78); Albumin, Blood 3.8 g/dL (3.4-5.0); Albumin/Globulin Ratio 1.2 (0.8-1.8); Alk Phos 53 U/L (50-136); Anion Gap 6 mmol/L (6-16); Aspartate Aminotrans (AST/SGOT 18 U/L (12-37); Bilirubin, Total 0.4 mg/dL (0.1-1.0); Blood Urea Nitrogen 17 mg/dL (8-24); Bun/Creatinine Ratio 24.3 (12.0-20.0); CO2, Blood 31 mmol/L (21-32); Chloride, Blood 105 mmol/L (98-108); Globulin, Blood 3.2 g/dL (2.2-4.0); Glomerular Filtration Rate >60 (60-); Glucose, Blood 100 mg/dL (70-99); Potassium, Blood 3.6 mmol/L (3.5-5.5); Sodium, Blood 142 mmol/L (136-145)
[2019-09-30 01:19] LABS: Source, Urine Clean Catch
[2019-09-30 01:21] LABS: Bilirubin, Urine Neg (Neg); Blood, Urine 2+ (Neg); Glucose Qualitative, Urine Neg (Neg); Ketones, Urine Neg (Neg); Leukocyte Esterase, Urine Neg (Neg); Nitrite, Urine Neg (Neg); Protein, Urine Neg (Neg); Urobilinogen, Urine NORM (Normal)
[2019-09-30 01:24] LABS: Appearance, Urine Clear (Clear); Color, Urine Yellow (P-Yellow)
[2019-09-30 01:27] LABS: White Blood Cells, Urine 0-2 /hpf (0-5)
[2019-09-30 01:28] LABS: Bacteria Few /hpf; Squamous Epithelial Cells Few /hpf (Few)
== END 2019-09-30 03:12 | disposition home or self-care (01) ==
LOC: ER 22:15
PROVIDERS: Emergency Medicine
DX: R10.84 Generalized abdominal pain (principal); I10 Essential (primary) hypertension; M41.9 Scoliosis, unspecified; M19.90 Unspecified osteoarthritis, unspecified site; M81.0 Age-related osteoporosis without current pathological fracture; M54.9 Dorsalgia, unspecified; G89.29 Other chronic pain; Z79.899 Other long term (current) drug therapy; Z87.891 Personal history of nicotine dependence
CPT/HCPCS: 36415; 74176; 80053; 81001; 83690; 85025; 93005; 93010; 96361; 96374; 96375; 99284-25; J2405; J3010; J7030

== ENCOUNTER 2019-10-07 08:51 | Emergency (ER) | payer MEDICARE, OTHER ==
[~2019-10-07] VITALS: Ht 177.8 cm; Wt 76.2 kg
[2019-10-07 10:31] LABS: BASOPHILS ABSOLUTE AUTO 0.02 K/mm3 (0.00-0.23); BASOPHILS PERCENT AUTO 0 % (0-2); EOSINOPHILS ABSOLUTE AUTO 0.12 K/mm3 (0.00-0.68); EOSINOPHILS PERCENT AUTO 2 % (0-6); Hematocrit 40.4 % (33.0-51.0); Hemoglobin 12.7 g/dL (11.5-16.0); IMMATURE GRAN ABSOLUTE AUTO 0.01 K/mm3 (0.00-0.10); IMMATURE GRAN PERCENT AUTO 0 % (0-1); LYMPHOCYTES ABSOLUTE AUTO 1.24 K/mm3 (0.84-5.20); LYMPHOCYTES PERCENT AUTO 23 % (21-46); MONOCYTES ABSOLUTE AUTO 0.52 K/mm3 (0.16-1.47); MONOCYTES PERCENT AUTO 10 % (4-13); Mean Corpuscular HGB Conc 31.4 g/dL (31.5-36.5); Mean Corpuscular Volume 95 fL (80-100); Mean Platelet Volume 10.6 fL (9.1-12.4); NEUTROPHILS ABSOLUTE AUTO 3.49 K/mm3 (1.96-9.15); NEUTROPHILS PERCENT AUTO 65 % (41-73); Platelet Count 155 K/mm3 (150-400); RDW Coefficient Variation 12.1 % (11.7-14.2); RDW Standard Deviation 42.5 fL (35.1-46.3); Red Blood Cell Count 4.24 M/mm3 (3.80-5.20)
[2019-10-07 10:43] LABS: Alanine Aminotransfer (ALT/SGP 15 U/L (12-78); Albumin, Blood 3.4 g/dL (3.4-5.0); Albumin/Globulin Ratio 1.1 (0.8-1.8); Alk Phos 44 U/L (50-136); Anion Gap 6 mmol/L (6-16); Aspartate Aminotrans (AST/SGOT 13 U/L (12-37); Bilirubin, Total 0.3 mg/dL (0.1-1.0); Blood Urea Nitrogen 26 mg/dL (8-24); Bun/Creatinine Ratio 40.4 (12.0-20.0); CO2, Blood 27 mmol/L (21-32); Calcium, Blood 9.3 mg/dL (8.5-10.1); Chloride, Blood 111 mmol/L (98-108); Creatinine, Blood 0.64 mg/dL (0.40-1.00); Globulin, Blood 3.1 g/dL (2.2-4.0); Glomerular Filtration Rate >60 (60-); Glucose, Blood 117 mg/dL (70-99); Sodium, Blood 144 mmol/L (136-145); Total Protein, Blood 6.5 g/dL (6.4-8.2)
[2019-10-07 11:35] LABS: Source, Urine Clean Catch
[2019-10-07 11:38] LABS: Appearance, Urine Clear (Clear); Bilirubin, Urine Neg (Neg); Blood, Urine 2+ (Neg); Color, Urine Yellow (P-Yellow); Glucose Qualitative, Urine Neg (Neg); Ketones, Urine Neg (Neg); Leukocyte Esterase, Urine Neg (Neg); Nitrite, Urine Neg (Neg); Protein, Urine Neg (Neg); Urobilinogen, Urine NORM (Normal)
[2019-10-07 11:49] LABS: White Blood Cells, Urine 0-2 /hpf (0-5)
[2019-10-07 11:50] LABS: Squamous Epithelial Cells Not Seen /hpf (Few)
[2019-10-07 11:51] LABS: Bacteria Not Seen /hpf
[2019-10-07] MEDS ORDERED: PROM25 PO (12:59)
== END 2019-10-07 13:52 | disposition home or self-care (01) ==
LOC: ER 08:51
PROVIDERS: Emergency Medicine
DX: K59.00 Constipation, unspecified (principal); R42 Dizziness and giddiness; M54.9 Dorsalgia, unspecified; G89.29 Other chronic pain; I11.0 Hypertensive heart disease with heart failure; I50.9 Heart failure, unspecified; M81.0 Age-related osteoporosis without current pathological fracture; Z79.899 Other long term (current) drug therapy; Z87.891 Personal history of nicotine dependence
CPT/HCPCS: 36415; 74022; 80053; 81001; 83690; 85025; 96361; 96374; 96375; 99283-25; J2550; J3010; J7030

== ENCOUNTER → 2020-03-11 | Outpatient (CLI) | payer MEDICARE, OTHER ==
[~2020-03-11] MED LIST changes: +CEFU250T47 PO; +CEFUROXIME; +Klor-Con 1010 MEQ; +Neurontin 300300 MG PO; +PROM25 PO
== END | disposition home or self-care (01) ==
LOC: LAB EV 16:30 → LAB SHORT 16:30
DX: R30.0 Dysuria (principal)
CPT/HCPCS: 87086

== ENCOUNTER 2020-03-14 22:00 | Emergency (ER) | payer MEDICARE, OTHER ==
[~2020-03-14] VITALS: Ht 167.6 cm; Wt 75.3 kg
[~2020-03-14 22:00] MED LIST changes: -CEFU250T47 PO; -CEFUROXIME; -Klor-Con 1010 MEQ; -Neurontin 300300 MG PO
[2020-03-14] MEDS ORDERED: Klor-Con 1010 MEQ (22:11)
[2020-03-14] MEDS ORDERED: CEFUROXIME (22:13)
[2020-03-14] MEDS ORDERED: CEFU250T47 PO (22:14)
[2020-03-14 22:58] LABS: BASOPHILS ABSOLUTE AUTO 0.02 K/mm3 (0.00-0.23); BASOPHILS PERCENT AUTO 0 % (0-2); EOSINOPHILS ABSOLUTE AUTO 0.17 K/mm3 (0.00-0.68); EOSINOPHILS PERCENT AUTO 3 % (0-6); Hematocrit 39.8 % (33.0-51.0); Hemoglobin 12.6 g/dL (11.5-16.0); IMMATURE GRAN ABSOLUTE AUTO 0.01 K/mm3 (0.00-0.10); IMMATURE GRAN PERCENT AUTO 0 % (0-1); LYMPHOCYTES ABSOLUTE AUTO 1.45 K/mm3 (0.84-5.20); LYMPHOCYTES PERCENT AUTO 27 % (21-46); MONOCYTES ABSOLUTE AUTO 0.64 K/mm3 (0.16-1.47); MONOCYTES PERCENT AUTO 12 % (4-13); Mean Corpuscular HGB 29.8 pg (26.0-34.0); Mean Corpuscular HGB Conc 31.7 g/dL (31.5-36.5); Mean Corpuscular Volume 94 fL (80-100); Mean Platelet Volume 9.7 fL (9.1-12.4); NEUTROPHILS ABSOLUTE AUTO 3.07 K/mm3 (1.96-9.15); NEUTROPHILS PERCENT AUTO 57 % (41-73); Platelet Count 155 K/mm3 (150-400); RDW Coefficient Variation 12.3 % (11.7-14.2); RDW Standard Deviation 42.6 fL (35.1-46.3); Red Blood Cell Count 4.23 M/mm3 (3.80-5.20); White Blood Cell Count 5.36 K/mm3 (4.00-11.30)
[2020-03-14 23:18] LABS: Alanine Aminotransfer (ALT/SGP 17 U/L (12-78); Albumin, Blood 3.4 g/dL (3.4-5.0); Albumin/Globulin Ratio 1.1 (0.8-1.8); Alk Phos 43 U/L (50-136); Anion Gap 4 mmol/L (6-16); Aspartate Aminotrans (AST/SGOT 13 U/L (12-37); Bilirubin, Total 0.3 mg/dL (0.1-1.0); Blood Urea Nitrogen 23 mg/dL (8-24); Bun/Creatinine Ratio 34.6 (12.0-20.0); CO2, Blood 32 mmol/L (21-32); Calcium, Blood 9.1 mg/dL (8.5-10.1); Chloride, Blood 106 mmol/L (98-108); Creatinine, Blood 0.67 mg/dL (0.40-1.00); Globulin, Blood 3.2 g/dL (2.2-4.0); Glomerular Filtration Rate >60 (60-); Glucose, Blood 90 mg/dL (70-99); Potassium, Blood 3.6 mmol/L (3.5-5.5); Sodium, Blood 142 mmol/L (136-145); Total Protein, Blood 6.6 g/dL (6.4-8.2); Troponin I <0.015 ng/mL (0.000-0.040)
[2020-03-15] MEDS ORDERED: Neurontin 300300 MG PO (01:13)
== END 2020-03-15 02:28 | disposition home or self-care (01) ==
LOC: ER 22:00
PROVIDERS: Emergency Medicine
DX: G62.9 Polyneuropathy, unspecified (principal); I10 Essential (primary) hypertension; Z79.899 Other long term (current) drug therapy; Z87.891 Personal history of nicotine dependence
CPT/HCPCS: 80053; 83880; 84484; 85025; 93005; 93010; 99284-25; A9270-GY

== ENCOUNTER → 2020-03-26 | Outpatient (CLI) | payer MEDICARE, OTHER ==
[~2020-03-26] MED LIST changes: +CEFU250T47 PO; +CEFUROXIME; +Klor-Con 1010 MEQ; +Neurontin 300300 MG PO
[2020-03-26 16:22] LABS: BASOPHILS ABSOLUTE AUTO 0.03 K/mm3 (0.00-0.23); BASOPHILS PERCENT AUTO 1 % (0-2); EOSINOPHILS ABSOLUTE AUTO 0.13 K/mm3 (0.00-0.68); EOSINOPHILS PERCENT AUTO 2 % (0-6); Hematocrit 37.8 % (33.0-51.0); Hemoglobin 12.5 g/dL (11.5-16.0); IMMATURE GRAN ABSOLUTE AUTO 0.02 K/mm3 (0.00-0.10); IMMATURE GRAN PERCENT AUTO 0 % (0-1); LYMPHOCYTES ABSOLUTE AUTO 1.54 K/mm3 (0.84-5.20); LYMPHOCYTES PERCENT AUTO 27 % (21-46); MONOCYTES ABSOLUTE AUTO 0.59 K/mm3 (0.16-1.47); MONOCYTES PERCENT AUTO 10 % (4-13); Mean Corpuscular HGB 30.4 pg (26.0-34.0); Mean Corpuscular HGB Conc 33.1 g/dL (31.5-36.5); Mean Corpuscular Volume 92 fL (80-100); Mean Platelet Volume 9.8 fL (9.1-12.4); NEUTROPHILS ABSOLUTE AUTO 3.51 K/mm3 (1.96-9.15); NEUTROPHILS PERCENT AUTO 60 % (41-73); Platelet Count 151 K/mm3 (150-400); RDW Coefficient Variation 12.5 % (11.7-14.2); RDW Standard Deviation 41.9 fL (35.1-46.3); Red Blood Cell Count 4.11 M/mm3 (3.80-5.20); White Blood Cell Count 5.82 K/mm3 (4.00-11.30)
[2020-03-26 16:33] LABS: Alanine Aminotransfer (ALT/SGP 17 U/L (12-78); Albumin, Blood 3.8 g/dL (3.4-5.0); Albumin/Globulin Ratio 1.2 (0.8-1.8); Alk Phos 52 U/L (40-126); Anion Gap 11 mmol/L (6-16); Aspartate Aminotrans (AST/SGOT 21 U/L (12-37); Bilirubin, Total 0.5 mg/dL (0.1-1.0); Blood Urea Nitrogen 26 mg/dL (8-24); Bun/Creatinine Ratio 29.5 (12.0-20.0); CO2, Blood 29 mmol/L (21-32); Chloride, Blood 106 mmol/L (98-108); Creatinine, Blood 0.88 mg/dL (0.40-1.00); Globulin, Blood 3.2 g/dL (2.2-4.0); Glomerular Filtration Rate >60 (60-); Glucose, Blood 104 mg/dL (70-99); Potassium, Blood 3.8 mmol/L (3.5-5.5); Sodium, Blood 146 mmol/L (136-145)
== END | disposition home or self-care (01) ==
LOC: LAB EV 16:18 → LAB SHORT 16:18
PROVIDERS: Physician Assistant
DX: I50.9 Heart failure, unspecified (principal)
CPT/HCPCS: 80053; 83880; 85025

== ENCOUNTER 2020-06-15 00:03 | Emergency (ER) | payer MEDICARE, OTHER ==
[~2020-06-15] VITALS: Ht 157.5 cm; Wt 68.0 kg
[2020-06-15 00:38] LABS: BASOPHILS ABSOLUTE AUTO 0.03 K/mm3 (0.00-0.23); BASOPHILS PERCENT AUTO 1 % (0-2); EOSINOPHILS ABSOLUTE AUTO 0.13 K/mm3 (0.00-0.68); EOSINOPHILS PERCENT AUTO 2 % (0-6); Hematocrit 39.4 % (33.0-51.0); Hemoglobin 12.9 g/dL (11.5-16.0); IMMATURE GRAN ABSOLUTE AUTO 0.01 K/mm3 (0.00-0.10); IMMATURE GRAN PERCENT AUTO 0 % (0-1); LYMPHOCYTES ABSOLUTE AUTO 1.42 K/mm3 (0.84-5.20); LYMPHOCYTES PERCENT AUTO 24 % (21-46); MONOCYTES ABSOLUTE AUTO 0.66 K/mm3 (0.16-1.47); MONOCYTES PERCENT AUTO 11 % (4-13); Mean Corpuscular HGB 30.1 pg (26.0-34.0); Mean Corpuscular HGB Conc 32.7 g/dL (31.5-36.5); Mean Corpuscular Volume 92 fL (80-100); Mean Platelet Volume 9.7 fL (9.1-12.4); NEUTROPHILS ABSOLUTE AUTO 3.71 K/mm3 (1.96-9.15); NEUTROPHILS PERCENT AUTO 62 % (41-73); Platelet Count 159 K/mm3 (150-400); RDW Coefficient Variation 12.1 % (11.7-14.2); RDW Standard Deviation 40.5 fL (35.1-46.3); Red Blood Cell Count 4.28 M/mm3 (3.80-5.20); White Blood Cell Count 5.96 K/mm3 (4.00-11.30)
[2020-06-15 00:55] LABS: Source, Urine Clean Catch
[2020-06-15 00:56] LABS: Alanine Aminotransfer (ALT/SGP 18 U/L (12-78); Albumin, Blood 3.6 g/dL (3.4-5.0); Albumin/Globulin Ratio 1.1 (0.8-1.8); Alk Phos 48 U/L (50-136); Anion Gap 3 mmol/L (6-16); Aspartate Aminotrans (AST/SGOT 11 U/L (12-37); Bilirubin, Total 0.4 mg/dL (0.1-1.0); Blood Urea Nitrogen 23 mg/dL (8-24); Bun/Creatinine Ratio 31.1 (12.0-20.0); CO2, Blood 31 mmol/L (21-32); Calcium, Blood 9.3 mg/dL (8.5-10.1); Chloride, Blood 107 mmol/L (98-108); Creatinine, Blood 0.74 mg/dL (0.40-1.00); Globulin, Blood 3.2 g/dL (2.2-4.0); Glomerular Filtration Rate >60 (60-); Glucose, Blood 103 mg/dL (70-99); Potassium, Blood 3.7 mmol/L (3.5-5.5); Sodium, Blood 141 mmol/L (136-145); Total Protein, Blood 6.8 g/dL (6.4-8.2)
[2020-06-15 01:11] LABS: Bilirubin, Urine Neg (Neg); Blood, Urine 3+ (Neg); Glucose Qualitative, Urine Neg (Neg); Ketones, Urine Neg (Neg); Leukocyte Esterase, Urine Neg (Neg); Nitrite, Urine Neg (Neg); Protein, Urine 1+ (Neg); Urobilinogen, Urine NORM (Normal); pH, Urine 6.5 (5.0-8.0)
[2020-06-15 01:13] LABS: Appearance, Urine Clear (Clear); Color, Urine Yellow (P-Yellow)
[2020-06-15 01:20] LABS: Bacteria Not Seen /hpf; Red Blood Cells, Urine 0-2 /hpf (0-2); Squamous Epithelial Cells Not Seen /hpf (Few); White Blood Cells, Urine Not Seen /hpf (0-5)
[2020-06-15 01:21] LABS: Troponin I <0.015 ng/mL (0.000-0.040)
== END 2020-06-15 03:00 | disposition home or self-care (01) ==
LOC: ER 00:03
PROVIDERS: Emergency Medicine
DX: R10.32 Left lower quadrant pain (principal); I10 Essential (primary) hypertension; R11.2 Nausea with vomiting, unspecified; Z79.899 Other long term (current) drug therapy; Z87.891 Personal history of nicotine dependence
CPT/HCPCS: 36415; 74176; 80053; 81001; 84484; 85025; 96374; 96375; 99285-25; A9270-GY; J3010

== ENCOUNTER 2020-07-01 11:08 | Emergency (ER) | payer MEDICARE, OTHER ==
[~2020-07-01] VITALS: Ht 157.5 cm; Wt 71.7 kg
[2020-07-01 12:13] LABS: BASOPHILS ABSOLUTE AUTO 0.03 K/mm3 (0.00-0.23); BASOPHILS PERCENT AUTO 0 % (0-2); EOSINOPHILS ABSOLUTE AUTO 0.13 K/mm3 (0.00-0.68); EOSINOPHILS PERCENT AUTO 2 % (0-6); Hematocrit 38.4 % (33.0-51.0); Hemoglobin 12.3 g/dL (11.5-16.0); IMMATURE GRAN ABSOLUTE AUTO 0.01 K/mm3 (0.00-0.10); IMMATURE GRAN PERCENT AUTO 0 % (0-1); LYMPHOCYTES ABSOLUTE AUTO 1.25 K/mm3 (0.84-5.20); LYMPHOCYTES PERCENT AUTO 19 % (21-46); MONOCYTES ABSOLUTE AUTO 0.58 K/mm3 (0.16-1.47); MONOCYTES PERCENT AUTO 9 % (4-13); Mean Corpuscular HGB 30.3 pg (26.0-34.0); Mean Corpuscular Volume 95 fL (80-100); NEUTROPHILS ABSOLUTE AUTO 4.69 K/mm3 (1.96-9.15); NEUTROPHILS PERCENT AUTO 70 % (41-73); RDW Coefficient Variation 12.1 % (11.7-14.2); RDW Standard Deviation 42.1 fL (35.1-46.3); Red Blood Cell Count 4.06 M/mm3 (3.80-5.20); White Blood Cell Count 6.69 K/mm3 (4.00-11.30)
[2020-07-01 12:16] LABS: Platelet Count 141 K/mm3 (150-400)
[2020-07-01 12:25] LABS: Alanine Aminotransfer (ALT/SGP 13 U/L (12-78); Albumin, Blood 3.5 g/dL (3.4-5.0); Albumin/Globulin Ratio 1.2 (0.8-1.8); Alk Phos 49 U/L (50-136); Anion Gap 4 mmol/L (6-16); Aspartate Aminotrans (AST/SGOT 13 U/L (12-37); Bilirubin, Total 0.6 mg/dL (0.1-1.0); Blood Urea Nitrogen 20 mg/dL (8-24); Bun/Creatinine Ratio 28.9 (12.0-20.0); CO2, Blood 31 mmol/L (21-32); Calcium, Blood 8.9 mg/dL (8.5-10.1); Chloride, Blood 106 mmol/L (98-108); Creatinine, Blood 0.69 mg/dL (0.40-1.00); Glomerular Filtration Rate >60 (60-); Glucose, Blood 93 mg/dL (70-99); Potassium, Blood 3.6 mmol/L (3.5-5.5); Sodium, Blood 141 mmol/L (136-145); Total Protein, Blood 6.5 g/dL (6.4-8.2)
== END 2020-07-01 13:21 | disposition home or self-care (01) ==
LOC: ER 11:08
PROVIDERS: Physician Assistant
DX: K92.2 Gastrointestinal hemorrhage, unspecified (principal); G89.29 Other chronic pain; I10 Essential (primary) hypertension; Z88.8 Allergy status to other drugs, medicaments and biological substances; Z79.899 Other long term (current) drug therapy
CPT/HCPCS: 36415; 74018; 80053; 85025; 86850; 86900; 86901; 93005; 93010; 96374; 99284-25; J3010

== ENCOUNTER → 2020-09-06 | Outpatient (CLI) | payer MEDICARE, OTHER | END | disposition home or self-care (01) | LOC: LAB EV 15:36 → LAB SHORT 15:36 | DX: N39.0 Urinary tract infection, site not specified (principal) | CPT/HCPCS: 87086 ==

== ENCOUNTER 2020-10-31 12:17 | Emergency (ER) | payer MEDICARE, OTHER ==
[~2020-10-31] VITALS: Ht 157.5 cm; Wt 70.8 kg
[2020-10-31 13:14] LABS: BASOPHILS ABSOLUTE AUTO 0.01 K/mm3 (0.00-0.23); BASOPHILS PERCENT AUTO 0 % (0-2); EOSINOPHILS ABSOLUTE AUTO 0.12 K/mm3 (0.00-0.68); EOSINOPHILS PERCENT AUTO 2 % (0-6); Hematocrit 39.8 % (33.0-51.0); Hemoglobin 12.6 g/dL (11.5-16.0); IMMATURE GRAN ABSOLUTE AUTO 0.01 K/mm3 (0.00-0.10); IMMATURE GRAN PERCENT AUTO 0 % (0-1); LYMPHOCYTES ABSOLUTE AUTO 1.36 K/mm3 (0.84-5.20); LYMPHOCYTES PERCENT AUTO 26 % (21-46); MONOCYTES ABSOLUTE AUTO 0.47 K/mm3 (0.16-1.47); MONOCYTES PERCENT AUTO 9 % (4-13); Mean Corpuscular HGB 29.8 pg (26.0-34.0); Mean Corpuscular HGB Conc 31.7 g/dL (31.5-36.5); Mean Corpuscular Volume 94 fL (80-100); Mean Platelet Volume 9.7 fL (9.1-12.4); NEUTROPHILS ABSOLUTE AUTO 3.25 K/mm3 (1.96-9.15); NEUTROPHILS PERCENT AUTO 62 % (41-73); Platelet Count 157 K/mm3 (150-400); RDW Coefficient Variation 12.3 % (11.7-14.2); RDW Standard Deviation 42.9 fL (35.1-46.3); Red Blood Cell Count 4.23 M/mm3 (3.80-5.20); White Blood Cell Count 5.22 K/mm3 (4.00-11.30)
[2020-10-31 13:17] LABS: Source, Urine Clean Catch
[2020-10-31 13:32] LABS: Alanine Aminotransfer (ALT/SGP 20 U/L (12-78); Albumin, Blood 3.6 g/dL (3.4-5.0); Albumin/Globulin Ratio 1.2 (0.8-1.8); Alk Phos 53 U/L (50-136); Anion Gap 3 mmol/L (6-16); Aspartate Aminotrans (AST/SGOT 18 U/L (12-37); Bilirubin, Total 0.3 mg/dL (0.1-1.0); Blood Urea Nitrogen 20 mg/dL (8-24); Bun/Creatinine Ratio 31.2 (12.0-20.0); CO2, Blood 31 mmol/L (21-32); Calcium, Blood 9.3 mg/dL (8.5-10.1); Chloride, Blood 106 mmol/L (98-108); Creatinine, Blood 0.64 mg/dL (0.40-1.00); Globulin, Blood 3.1 g/dL (2.2-4.0); Glomerular Filtration Rate >60 (60-); Glucose, Blood 99 mg/dL (70-99); Potassium, Blood 3.9 mmol/L (3.5-5.5); Sodium, Blood 140 mmol/L (136-145); Total Protein, Blood 6.7 g/dL (6.4-8.2)
[2020-10-31 13:50] LABS: Appearance, Urine Clear (Clear); Bilirubin, Urine Neg (Neg); Blood, Urine 3+ (Neg); Color, Urine Yellow (P-Yellow); Glucose Qualitative, Urine Neg (Neg); Ketones, Urine Neg (Neg); Leukocyte Esterase, Urine 1+ (Neg); Nitrite, Urine Neg (Neg); Protein, Urine Neg (Neg); Urobilinogen, Urine NORM (Normal)
[2020-10-31 14:16] LABS: Bacteria Few /hpf; Squamous Epithelial Cells Few /hpf (Few); White Blood Cells, Urine 0-2 /hpf (0-5)
[2020-10-31] MEDS ORDERED: HYDR1TAB94 PO (15:19)
== END 2020-10-31 15:20 | disposition home or self-care (01) ==
LOC: ER 12:17
PROVIDERS: Emergency Medicine
DX: M54.5 Low back pain (principal); G89.29 Other chronic pain; M19.90 Unspecified osteoarthritis, unspecified site; I10 Essential (primary) hypertension; Z88.8 Allergy status to other drugs, medicaments and biological substances; Z79.899 Other long term (current) drug therapy
CPT/HCPCS: 36415; 72100; 80053; 81001; 85025; 87086; 96374; 99283-25; A9270; J2405

== ENCOUNTER 2020-12-30 21:19 | Emergency (ER) | payer MEDICARE, OTHER ==
[~2020-12-30] VITALS: Ht 157.5 cm; Wt 72.6 kg
[2020-12-30 22:02] LABS: BASOPHILS ABSOLUTE AUTO 0.02 K/mm3 (0.00-0.23); BASOPHILS PERCENT AUTO 0 % (0-2); EOSINOPHILS ABSOLUTE AUTO 0.05 K/mm3 (0.00-0.68); EOSINOPHILS PERCENT AUTO 1 % (0-6); Hematocrit 40.2 % (33.0-51.0); Hemoglobin 13.1 g/dL (11.5-16.0); IMMATURE GRAN ABSOLUTE AUTO 0.02 K/mm3 (0.00-0.10); IMMATURE GRAN PERCENT AUTO 0 % (0-1); LYMPHOCYTES ABSOLUTE AUTO 1.24 K/mm3 (0.84-5.20); LYMPHOCYTES PERCENT AUTO 19 % (21-46); MONOCYTES ABSOLUTE AUTO 0.72 K/mm3 (0.16-1.47); MONOCYTES PERCENT AUTO 11 % (4-13); Mean Corpuscular HGB 30.1 pg (26.0-34.0); Mean Corpuscular HGB Conc 32.6 g/dL (31.5-36.5); Mean Corpuscular Volume 92 fL (80-100); Mean Platelet Volume 9.8 fL (9.1-12.4); NEUTROPHILS PERCENT AUTO 69 % (41-73); Platelet Count 156 K/mm3 (150-400); RDW Coefficient Variation 12.2 % (11.7-14.2); RDW Standard Deviation 41.4 fL (35.1-46.3); Red Blood Cell Count 4.35 M/mm3 (3.80-5.20); White Blood Cell Count 6.65 K/mm3 (4.00-11.30)
[2020-12-30 22:22] LABS: Alanine Aminotransfer (ALT/SGP 16 U/L (12-78); Albumin, Blood 3.7 g/dL (3.4-5.0); Albumin/Globulin Ratio 1.2 (0.8-1.8); Alk Phos 49 U/L (50-136); Anion Gap 6 mmol/L (6-16); Aspartate Aminotrans (AST/SGOT 15 U/L (12-37); Bilirubin, Total 0.3 mg/dL (0.1-1.0); Blood Urea Nitrogen 19 mg/dL (8-24); Bun/Creatinine Ratio 26.2 (12.0-20.0); CO2, Blood 31 mmol/L (21-32); Calcium, Blood 9.2 mg/dL (8.5-10.1); Chloride, Blood 108 mmol/L (98-108); Creatinine, Blood 0.73 mg/dL (0.40-1.00); Globulin, Blood 3.1 g/dL (2.2-4.0); Glomerular Filtration Rate >60 (60-); Glucose, Blood 103 mg/dL (70-99); Potassium, Blood 3.4 mmol/L (3.5-5.5); Sodium, Blood 145 mmol/L (136-145); Total Protein, Blood 6.8 g/dL (6.4-8.2)
[2020-12-31 00:01] LABS: Source, Urine Clean Catch
[2020-12-31 00:04] LABS: Appearance, Urine Clear (Clear); Bilirubin, Urine Neg (Neg); Blood, Urine 5+ (Neg); Color, Urine Yellow (P-Yellow); Glucose Qualitative, Urine Neg (Neg); Ketones, Urine 1+ (Neg); Leukocyte Esterase, Urine Neg (Neg); Nitrite, Urine Neg (Neg); Protein, Urine 2+ (Neg); Urobilinogen, Urine NORM (Normal)
[2020-12-31 00:09] LABS: Bacteria Few /hpf; Squamous Epithelial Cells Not Seen /hpf (Few); White Blood Cells, Urine 0-2 /hpf (0-5)
== END 2020-12-31 00:52 | disposition home or self-care (01) ==
LOC: ER 21:19
PROVIDERS: Physician Assistant
DX: R53.1 Weakness (principal); I10 Essential (primary) hypertension; Z88.8 Allergy status to other drugs, medicaments and biological substances; Z79.899 Other long term (current) drug therapy
CPT/HCPCS: 36415; 80053; 81001; 85025; 96374; 99284-25; J2405; P9612

== ENCOUNTER → 2021-01-25 | Outpatient (CLI) | payer MEDICARE, OTHER ==
[2021-01-25 11:18] LABS: BASOPHILS ABSOLUTE AUTO 0.02 K/mm3 (0.00-0.23); BASOPHILS PERCENT AUTO 0 % (0-2); EOSINOPHILS ABSOLUTE AUTO 0.11 K/mm3 (0.00-0.68); EOSINOPHILS PERCENT AUTO 2 % (0-6); Hemoglobin 13.2 g/dL (11.5-16.0); IMMATURE GRAN ABSOLUTE AUTO 0.02 K/mm3 (0.00-0.10); IMMATURE GRAN PERCENT AUTO 0 % (0-1); LYMPHOCYTES ABSOLUTE AUTO 1.32 K/mm3 (0.84-5.20); LYMPHOCYTES PERCENT AUTO 24 % (21-46); MONOCYTES ABSOLUTE AUTO 0.53 K/mm3 (0.16-1.47); MONOCYTES PERCENT AUTO 10 % (4-13); Mean Corpuscular HGB 30.7 pg (26.0-34.0); Mean Corpuscular Volume 93 fL (80-100); Mean Platelet Volume 10.6 fL (9.1-12.4); NEUTROPHILS ABSOLUTE AUTO 3.49 K/mm3 (1.96-9.15); NEUTROPHILS PERCENT AUTO 64 % (41-73); Platelet Count 271 K/mm3 (150-400); RDW Coefficient Variation 12.6 % (11.7-14.2); RDW Standard Deviation 42.7 fL (35.1-46.3); White Blood Cell Count 5.49 K/mm3 (4.00-11.30)
[2021-01-25 11:21] LABS: Anion Gap 8 mmol/L (6-16); Blood Urea Nitrogen 27 mg/dL (8-24); Bun/Creatinine Ratio 34.6 (12.0-20.0); CO2, Blood 31 mmol/L (21-32); Calcium, Blood 9.2 mg/dL (8.5-10.1); Chloride, Blood 105 mmol/L (98-108); Creatinine, Blood 0.78 mg/dL (0.40-1.00); Glomerular Filtration Rate >60 (60-); Glucose, Blood 104 mg/dL (70-99); Potassium, Blood 4.2 mmol/L (3.5-5.5); Sodium, Blood 144 mmol/L (136-145)
== END ==
LOC: LAB SHORT 11:13
PROVIDERS: Physician Assistant Surgical
DX: M62.81 Muscle weakness (generalized) (principal)
CPT/HCPCS: 80048; 85025

== ENCOUNTER 2021-01-29 19:20 | Emergency (ER) | payer MEDICARE, OTHER ==
[~2021-01-29] VITALS: Ht 157.5 cm; Wt 72.6 kg
== END 2021-01-29 22:18 | disposition home or self-care (01) ==
LOC: ER 19:20
DX: S66.911A Strain of unspecified muscle, fascia and tendon at wrist and hand level, right hand, initial encounter (principal); I10 Essential (primary) hypertension; Z88.8 Allergy status to other drugs, medicaments and biological substances; Z79.899 Other long term (current) drug therapy; X50.0XXA Overexertion from strenuous movement or load, initial encounter; W19.XXXA Unspecified fall, initial encounter
CPT/HCPCS: 73130; 99283-25; A9270-GY

== ENCOUNTER 2021-03-18 19:16 | Emergency (ER) | payer MEDICARE, OTHER ==
[~2021-03-18] VITALS: Ht 157.5 cm; Wt 74.8 kg
== END 2021-03-18 20:50 | disposition left against medical advice (07) ==
LOC: ER 19:16
DX: K59.00 Constipation, unspecified (principal); I10 Essential (primary) hypertension; Z88.8 Allergy status to other drugs, medicaments and biological substances; Z79.899 Other long term (current) drug therapy
CPT/HCPCS: 99282

== ENCOUNTER → 2021-03-19 | Outpatient (CLI) | payer MEDICARE, OTHER | END | disposition home or self-care (01) | LOC: LAB SHORT 10:56 → LAB 10:56 | DX: N39.0 Urinary tract infection, site not specified (principal) | CPT/HCPCS: 87086 ==

== ENCOUNTER 2021-03-20 15:01 | Emergency (ER) | payer MEDICARE, OTHER ==
[~2021-03-20] VITALS: Ht 162.6 cm; Wt 77.1 kg
[2021-03-20 15:27] LABS: BASOPHILS ABSOLUTE AUTO 0.01 K/mm3 (0.00-0.23); BASOPHILS PERCENT AUTO 0 % (0-2); EOSINOPHILS ABSOLUTE AUTO 0.09 K/mm3 (0.00-0.68); EOSINOPHILS PERCENT AUTO 1 % (0-6); Hematocrit 37.4 % (33.0-51.0); Hemoglobin 11.8 g/dL (11.5-16.0); IMMATURE GRAN ABSOLUTE AUTO 0.01 K/mm3 (0.00-0.10); IMMATURE GRAN PERCENT AUTO 0 % (0-1); LYMPHOCYTES ABSOLUTE AUTO 1.07 K/mm3 (0.84-5.20); LYMPHOCYTES PERCENT AUTO 17 % (21-46); MONOCYTES ABSOLUTE AUTO 0.67 K/mm3 (0.16-1.47); MONOCYTES PERCENT AUTO 11 % (4-13); Mean Corpuscular HGB 30.1 pg (26.0-34.0); Mean Corpuscular HGB Conc 31.6 g/dL (31.5-36.5); Mean Corpuscular Volume 95 fL (80-100); Mean Platelet Volume 9.8 fL (9.1-12.4); NEUTROPHILS ABSOLUTE AUTO 4.41 K/mm3 (1.96-9.15); NEUTROPHILS PERCENT AUTO 70 % (41-73); Platelet Count 143 K/mm3 (150-400); RDW Coefficient Variation 12.4 % (11.7-14.2); RDW Standard Deviation 43.2 fL (35.1-46.3); Red Blood Cell Count 3.92 M/mm3 (3.80-5.20); White Blood Cell Count 6.26 K/mm3 (4.00-11.30)
[2021-03-20 15:49] LABS: Alanine Aminotransfer (ALT/SGP 16 U/L (12-78); Albumin, Blood 3.4 g/dL (3.4-5.0); Albumin/Globulin Ratio 1.1 (0.8-1.8); Alk Phos 49 U/L (50-136); Anion Gap 5 mmol/L (6-16); Aspartate Aminotrans (AST/SGOT 16 U/L (12-37); Bilirubin, Total 0.3 mg/dL (0.1-1.0); Blood Urea Nitrogen 21 mg/dL (8-24); CO2, Blood 29 mmol/L (21-32); Calcium, Blood 8.9 mg/dL (8.5-10.1); Chloride, Blood 105 mmol/L (98-108); Creatinine, Blood 0.84 mg/dL (0.40-1.00); Globulin, Blood 3.2 g/dL (2.2-4.0); Glomerular Filtration Rate >60 (60-); Glucose, Blood 105 mg/dL (70-99); Potassium, Blood 4.2 mmol/L (3.5-5.5); Sodium, Blood 139 mmol/L (136-145); Total Protein, Blood 6.6 g/dL (6.4-8.2)
[2021-03-20 16:38] LABS: Source, Urine Catheter
[2021-03-20 16:47] LABS: Appearance, Urine Clear (Clear); Bilirubin, Urine Neg (Neg); Blood, Urine 2+ (Neg); Color, Urine Yellow (P-Yellow); Glucose Qualitative, Urine Neg (Neg); Ketones, Urine Neg (Neg); Leukocyte Esterase, Urine Neg (Neg); Nitrite, Urine Neg (Neg); Protein, Urine 1+ (Neg); Urobilinogen, Urine NORM (Normal)
[2021-03-20 17:11] LABS: Bacteria Rare /hpf; Squamous Epithelial Cells Rare /hpf (Few); White Blood Cells, Urine 0-2 /hpf (0-5)
[2021-03-20] MEDS ORDERED: Percocet 5-3251 EACH PO ×2 (17:28→18:16)
[2021-03-20] MEDS ORDERED: Colace100 MG PO ×2 (17:28→18:16)
== END 2021-03-20 18:25 | disposition home or self-care (01) ==
LOC: ER 15:01
PROVIDERS: Physician Assistant
DX: K59.00 Constipation, unspecified (principal); I10 Essential (primary) hypertension; Z88.8 Allergy status to other drugs, medicaments and biological substances; Z79.899 Other long term (current) drug therapy
CPT/HCPCS: 36415; 74176; 80053; 81001; 83690; 85025; 96374; 99284-25; A9270; J2405

== ENCOUNTER → 2021-03-28 | Outpatient (CLI) | payer MEDICARE, OTHER | LOC: LAB SHORT 12:18 → LAB 12:18 | DX: R30.0 Dysuria (principal) | CPT/HCPCS: 87086 ==

== ENCOUNTER 2021-03-31 22:43 | Emergency (ER) | payer MEDICARE, OTHER ==
[~2021-03-31] VITALS: Ht 157.5 cm; Wt 74.8 kg
[2021-04-01 03:24] LABS: BASOPHILS ABSOLUTE AUTO 0.02 K/mm3 (0.00-0.23); BASOPHILS PERCENT AUTO 0 % (0-2); EOSINOPHILS ABSOLUTE AUTO 0.04 K/mm3 (0.00-0.68); EOSINOPHILS PERCENT AUTO 1 % (0-6); Hematocrit 41.6 % (33.0-51.0); Hemoglobin 13.1 g/dL (11.5-16.0); IMMATURE GRAN ABSOLUTE AUTO 0.02 K/mm3 (0.00-0.10); IMMATURE GRAN PERCENT AUTO 0 % (0-1); LYMPHOCYTES ABSOLUTE AUTO 1.14 K/mm3 (0.84-5.20); LYMPHOCYTES PERCENT AUTO 20 % (21-46); MONOCYTES ABSOLUTE AUTO 0.74 K/mm3 (0.16-1.47); MONOCYTES PERCENT AUTO 13 % (4-13); Mean Corpuscular HGB 29.5 pg (26.0-34.0); Mean Corpuscular HGB Conc 31.5 g/dL (31.5-36.5); Mean Corpuscular Volume 94 fL (80-100); Mean Platelet Volume 9.7 fL (9.1-12.4); NEUTROPHILS ABSOLUTE AUTO 3.73 K/mm3 (1.96-9.15); NEUTROPHILS PERCENT AUTO 66 % (41-73); Platelet Count 201 K/mm3 (150-400); RDW Coefficient Variation 12.6 % (11.7-14.2); RDW Standard Deviation 43.4 fL (35.1-46.3); Red Blood Cell Count 4.44 M/mm3 (3.80-5.20); White Blood Cell Count 5.69 K/mm3 (4.00-11.30)
[2021-04-01 03:44] LABS: Alanine Aminotransfer (ALT/SGP 17 U/L (12-78); Albumin, Blood 3.6 g/dL (3.4-5.0); Albumin/Globulin Ratio 1.2 (0.8-1.8); Alk Phos 64 U/L (50-136); Anion Gap 2 mmol/L (6-16); Aspartate Aminotrans (AST/SGOT 14 U/L (12-37); Bilirubin, Total 0.3 mg/dL (0.1-1.0); Blood Urea Nitrogen 16 mg/dL (8-24); Bun/Creatinine Ratio 24.8 (12.0-20.0); CO2, Blood 29 mmol/L (21-32); Calcium, Blood 8.2 mg/dL (8.5-10.1); Chloride, Blood 110 mmol/L (98-108); Creatinine, Blood 0.65 mg/dL (0.40-1.00); Globulin, Blood 3.1 g/dL (2.2-4.0); Glomerular Filtration Rate >60 (60-); Glucose, Blood 88 mg/dL (70-99); Potassium, Blood 3.5 mmol/L (3.5-5.5); Sodium, Blood 141 mmol/L (136-145); Total Protein, Blood 6.7 g/dL (6.4-8.2)
== END 2021-04-01 08:17 | disposition home or self-care (01) ==
LOC: ER 22:43
PROVIDERS: Emergency Medicine
DX: R10.9 Unspecified abdominal pain (principal); I10 Essential (primary) hypertension; Z79.899 Other long term (current) drug therapy; Z88.8 Allergy status to other drugs, medicaments and biological substances
CPT/HCPCS: 71045; 74176; 80053; 81000; 83690; 85025; 87015; 87045; 87046; 87205; 87324; 87493; 87899; 99284-25; A9270

== ENCOUNTER → 2021-03-31 | Outpatient (CLI) | payer MEDICARE, OTHER ==
[2021-04-01 14:35] LABS: C DIFFICILE DNA POSITIVE (Negative)
== END | disposition home or self-care (01) ==
LOC: LAB 09:00 → LAB SHORT 09:00 → OLS 09:00
PROVIDERS: Nurse Practitioner Family
DX: R19.7 Diarrhea, unspecified (principal)
CPT/HCPCS: 87015; 87045; 87046; 87205; 87324; 87493; 87899

== ENCOUNTER 2021-06-23 18:54 | Emergency (ER) | payer MEDICARE, OTHER ==
[~2021-06-23] VITALS: Ht 157.5 cm; Wt 74.4 kg
== END 2021-06-23 21:30 | disposition home or self-care (01) ==
LOC: ER 18:54
DX: S09.90XA Unspecified injury of head, initial encounter (principal); S39.012A Strain of muscle, fascia and tendon of lower back, initial encounter; I10 Essential (primary) hypertension; Z88.8 Allergy status to other drugs, medicaments and biological substances; Z79.899 Other long term (current) drug therapy; W18.30XA Fall on same level, unspecified, initial encounter; Y92.009 Unspecified place in unspecified non-institutional (private) residence as the place of occurrence of the external cause
CPT/HCPCS: 70450; 72100; A9270

== ENCOUNTER → 2021-06-28 | Outpatient (CLI) | payer MEDICARE, OTHER | END | disposition home or self-care (01) | LOC: LAB 11:25 → LAB SHORT 11:25 | DX: R30.9 Painful micturition, unspecified (principal) | CPT/HCPCS: 87086 ==

== ENCOUNTER 2021-07-08 15:00 | Emergency (ER) | payer MEDICARE, OTHER ==
[~2021-07-08] VITALS: Ht 160 cm; Wt 86.2 kg
[2021-07-08 16:05] LABS: BASOPHILS ABSOLUTE AUTO 0.03 K/mm3 (0.00-0.23); BASOPHILS PERCENT AUTO 0 % (0-2); EOSINOPHILS ABSOLUTE AUTO 0.03 K/mm3 (0.00-0.68); EOSINOPHILS PERCENT AUTO 0 % (0-6); Hematocrit 41.4 % (33.0-51.0); Hemoglobin 13.4 g/dL (11.5-16.0); IMMATURE GRAN ABSOLUTE AUTO 0.03 K/mm3 (0.00-0.10); IMMATURE GRAN PERCENT AUTO 0 % (0-1); LYMPHOCYTES PERCENT AUTO 11 % (21-46); MONOCYTES ABSOLUTE AUTO 0.33 K/mm3 (0.16-1.47); MONOCYTES PERCENT AUTO 4 % (4-13); Mean Corpuscular HGB 30.7 pg (26.0-34.0); Mean Corpuscular HGB Conc 32.4 g/dL (31.5-36.5); Mean Corpuscular Volume 95 fL (80-100); Mean Platelet Volume 9.4 fL (9.1-12.4); NEUTROPHILS ABSOLUTE AUTO 6.67 K/mm3 (1.96-9.15); NEUTROPHILS PERCENT AUTO 83 % (41-73); Platelet Count 236 K/mm3 (150-400); RDW Coefficient Variation 12.2 % (11.7-14.2); RDW Standard Deviation 42.8 fL (35.1-46.3); Red Blood Cell Count 4.36 M/mm3 (3.80-5.20); White Blood Cell Count 7.99 K/mm3 (4.00-11.30)
[2021-07-08 16:20] LABS: Alanine Aminotransfer (ALT/SGP 37 U/L (12-78); Albumin, Blood 3.8 g/dL (3.4-5.0); Albumin/Globulin Ratio 1.1 (0.8-1.8); Alk Phos 99 U/L (50-136); Anion Gap 3 mmol/L (6-16); Aspartate Aminotrans (AST/SGOT 32 U/L (12-37); Bilirubin, Total 0.5 mg/dL (0.1-1.0); Blood Urea Nitrogen 17 mg/dL (8-24); Bun/Creatinine Ratio 24.8 (12.0-20.0); CO2, Blood 31 mmol/L (21-32); Calcium, Blood 9.5 mg/dL (8.5-10.1); Chloride, Blood 103 mmol/L (98-108); Creatinine, Blood 0.69 mg/dL (0.40-1.00); Globulin, Blood 3.6 g/dL (2.2-4.0); Glomerular Filtration Rate >60 (60-); Glucose, Blood 140 mg/dL (70-99); Magnesium, Blood 2.3 mg/dL (1.6-2.4); Potassium, Blood 4.2 mmol/L (3.5-5.5); Sodium, Blood 137 mmol/L (136-145); Total Protein, Blood 7.4 g/dL (6.4-8.2)
[2021-07-08 19:38] LABS: Source, Urine Catheter
[2021-07-08 19:48] LABS: Appearance, Urine Clear (Clear); Bilirubin, Urine Neg (Neg); Blood, Urine 4+ (Neg); Color, Urine Yellow (P-Yellow); Glucose Qualitative, Urine Neg (Neg); Ketones, Urine 1+ (Neg); Leukocyte Esterase, Urine Neg (Neg); Nitrite, Urine Neg (Neg); Protein, Urine 3+ (Neg); Urobilinogen, Urine NORM (Normal)
[2021-07-08 20:04] LABS: Bacteria Rare /hpf; Squamous Epithelial Cells Rare /hpf (Few); White Blood Cells, Urine 0-2 /hpf (0-5)
[2021-07-08 20:05] LABS: Amorphous Light (0-Heavy)
== END 2021-07-08 21:15 | disposition home or self-care (01) ==
LOC: ER 15:00
PROVIDERS: Physician Assistant
DX: R45.1 Restlessness and agitation (principal); S22.089D Unspecified fracture of T11-T12 vertebra, subsequent encounter for fracture with routine healing; I10 Essential (primary) hypertension; Z88.8 Allergy status to other drugs, medicaments and biological substances; Z79.899 Other long term (current) drug therapy; W19.XXXA Unspecified fall, initial encounter
CPT/HCPCS: 70450; 80053; 81001; 83735; 85025; 99284-25

== ENCOUNTER → 2021-07-30 | Outpatient (CLI) | payer MEDICARE, OTHER | END | disposition home or self-care (01) | LOC: LAB SHORT 10:15 | DX: R30.9 Painful micturition, unspecified (principal) | CPT/HCPCS: 87086 ==

== ENCOUNTER → 2021-08-02 | Outpatient (CLI) | payer MEDICARE, OTHER ==
[2021-08-02 09:55] LABS: BASOPHILS ABSOLUTE AUTO 0.02 K/mm3 (0.00-0.23); BASOPHILS PERCENT AUTO 0 % (0-2); EOSINOPHILS ABSOLUTE AUTO 0.08 K/mm3 (0.00-0.68); EOSINOPHILS PERCENT AUTO 1 % (0-6); Hematocrit 36.7 % (33.0-51.0); Hemoglobin 11.9 g/dL (11.5-16.0); IMMATURE GRAN ABSOLUTE AUTO 0.01 K/mm3 (0.00-0.10); IMMATURE GRAN PERCENT AUTO 0 % (0-1); LYMPHOCYTES ABSOLUTE AUTO 0.71 K/mm3 (0.84-5.20); LYMPHOCYTES PERCENT AUTO 11 % (21-46); MONOCYTES ABSOLUTE AUTO 0.51 K/mm3 (0.16-1.47); MONOCYTES PERCENT AUTO 8 % (4-13); Mean Corpuscular HGB 30.8 pg (26.0-34.0); Mean Corpuscular HGB Conc 32.4 g/dL (31.5-36.5); Mean Corpuscular Volume 95 fL (80-100); Mean Platelet Volume 9.7 fL (9.1-12.4); NEUTROPHILS ABSOLUTE AUTO 5.39 K/mm3 (1.96-9.15); NEUTROPHILS PERCENT AUTO 80 % (41-73); Platelet Count 161 K/mm3 (150-400); RDW Coefficient Variation 12.4 % (11.7-14.2); RDW Standard Deviation 42.8 fL (35.1-46.3); Red Blood Cell Count 3.86 M/mm3 (3.80-5.20); White Blood Cell Count 6.72 K/mm3 (4.00-11.30)
[2021-08-02 10:02] LABS: Alanine Aminotransfer (ALT/SGP 21 U/L (12-78); Albumin, Blood 3.8 g/dL (3.4-5.0); Albumin/Globulin Ratio 1.3 (0.8-1.8); Alk Phos 57 U/L (40-126); Anion Gap 6 mmol/L (6-16); Aspartate Aminotrans (AST/SGOT 15 U/L (12-37); Bilirubin, Total 0.7 mg/dL (0.1-1.0); Blood Urea Nitrogen 17 mg/dL (8-24); Bun/Creatinine Ratio 19.8 (12.0-20.0); CO2, Blood 32 mmol/L (21-32); Calcium, Blood 9.3 mg/dL (8.5-10.1); Chloride, Blood 102 mmol/L (98-108); Creatinine, Blood 0.86 mg/dL (0.40-1.00); Glomerular Filtration Rate >60 (60-); Glucose, Blood 101 mg/dL (70-99); Potassium, Blood 3.8 mmol/L (3.5-5.5); Sodium, Blood 140 mmol/L (136-145); Total Protein, Blood 6.8 g/dL (6.4-8.2)
== END | disposition home or self-care (01) ==
LOC: LAB SHORT 09:33 → LAB 09:33
PROVIDERS: Physician Assistant
DX: N39.0 Urinary tract infection, site not specified (principal); R10.11 Right upper quadrant pain; R10.13 Epigastric pain; R10.31 Right lower quadrant pain
CPT/HCPCS: 80053; 83690; 85025; 87077; 87086; 87186

== ENCOUNTER → 2021-09-03 | Outpatient (CLI) | payer MEDICARE, OTHER | LOC: LAB SHORT 12:57 → LAB 12:57 | DX: N39.0 Urinary tract infection, site not specified (principal) | CPT/HCPCS: 87077; 87086; 87186 ==

== ENCOUNTER → 2021-10-18 | Outpatient (CLI) | payer MEDICARE, OTHER | END | disposition home or self-care (01) | LOC: LAB SHORT 17:55 | PROVIDERS: Family Medicine | DX: Z51.81 Encounter for therapeutic drug level monitoring (principal); Z79.899 Other long term (current) drug therapy | CPT/HCPCS: G0480 ==

== ENCOUNTER → 2021-11-03 | Outpatient (CLI) | payer MEDICARE, OTHER ==
[2021-11-03 17:30] LABS: BASOPHILS ABSOLUTE AUTO 0.02 K/mm3 (0.00-0.23); BASOPHILS PERCENT AUTO 0 % (0-2); EOSINOPHILS ABSOLUTE AUTO 0.11 K/mm3 (0.00-0.68); EOSINOPHILS PERCENT AUTO 2 % (0-6); Hematocrit 36.8 % (33.0-51.0); Hemoglobin 11.9 g/dL (11.5-16.0); IMMATURE GRAN ABSOLUTE AUTO 0.01 K/mm3 (0.00-0.10); IMMATURE GRAN PERCENT AUTO 0 % (0-1); LYMPHOCYTES ABSOLUTE AUTO 1.15 K/mm3 (0.84-5.20); LYMPHOCYTES PERCENT AUTO 21 % (21-46); MONOCYTES ABSOLUTE AUTO 0.54 K/mm3 (0.16-1.47); MONOCYTES PERCENT AUTO 10 % (4-13); Mean Corpuscular HGB 30.4 pg (26.0-34.0); Mean Corpuscular HGB Conc 32.3 g/dL (31.5-36.5); Mean Corpuscular Volume 94 fL (80-100); Mean Platelet Volume 9.5 fL (9.1-12.4); NEUTROPHILS ABSOLUTE AUTO 3.55 K/mm3 (1.96-9.15); NEUTROPHILS PERCENT AUTO 66 % (41-73); Platelet Count 136 K/mm3 (150-400); RDW Coefficient Variation 12.5 % (11.7-14.2); RDW Standard Deviation 43.2 fL (35.1-46.3); Red Blood Cell Count 3.91 M/mm3 (3.80-5.20); White Blood Cell Count 5.38 K/mm3 (4.00-11.30)
[2021-11-03 17:45] LABS: Alanine Aminotransfer (ALT/SGP 25 U/L (12-78); Albumin, Blood 3.7 g/dL (3.4-5.0); Albumin/Globulin Ratio 1.5 (0.8-1.8); Alk Phos 46 U/L (40-126); Anion Gap 10 mmol/L (6-16); Aspartate Aminotrans (AST/SGOT 19 U/L (12-37); Bilirubin, Total 0.5 mg/dL (0.1-1.0); Blood Urea Nitrogen 24 mg/dL (8-24); CO2, Blood 31 mmol/L (21-32); Calcium, Blood 9.3 mg/dL (8.5-10.1); Chloride, Blood 102 mmol/L (98-108); Creatinine, Blood 0.75 mg/dL (0.40-1.00); Globulin, Blood 2.4 g/dL (2.2-4.0); Glomerular Filtration Rate >60 (60-); Glucose, Blood 90 mg/dL (70-99); Potassium, Blood 3.7 mmol/L (3.5-5.5); Sodium, Blood 143 mmol/L (136-145); Total Protein, Blood 6.1 g/dL (6.4-8.2)
== END ==
LOC: LAB SHORT 17:24
PROVIDERS: Family Medicine
DX: K30 Functional dyspepsia (principal)
CPT/HCPCS: 80053; 83690; 85025

== ENCOUNTER 2021-11-06 17:27 | Emergency (ER) | payer MEDICARE, OTHER ==
[~2021-11-06] VITALS: Ht 154.9 cm; Wt 77.1 kg
== END 2021-11-06 18:57 | disposition home or self-care (01) ==
LOC: ER 17:27
DX: U07.1 COVID-19 (principal); I11.0 Hypertensive heart disease with heart failure; I50.9 Heart failure, unspecified; M19.90 Unspecified osteoarthritis, unspecified site; K58.9 Irritable bowel syndrome, unspecified; Z85.828 Personal history of other malignant neoplasm of skin; Z88.8 Allergy status to other drugs, medicaments and biological substances; Z87.891 Personal history of nicotine dependence; Z79.899 Other long term (current) drug therapy; Z79.891 Long term (current) use of opiate analgesic
CPT/HCPCS: 36415; 93005; 93010; 99284-25

== ENCOUNTER → 2021-11-23 | Outpatient (CLI) | payer MEDICARE, OTHER | LOC: LAB SHORT 08:15 → LAB 08:15 | DX: K30 Functional dyspepsia (principal) | CPT/HCPCS: 87338 ==

== ENCOUNTER → 2021-12-07 | Outpatient (CLI) | payer MEDICARE, OTHER ==
[~2021-12-07] MED LIST changes: +ALMACONE SUSPE355 ML PO; +FAMO20 PO
== END | disposition home or self-care (01) ==
LOC: LAB SHORT 12:51 → LAB 12:51
PROVIDERS: Family Medicine
DX: Z51.81 Encounter for therapeutic drug level monitoring (principal); Z79.899 Other long term (current) drug therapy
CPT/HCPCS: G0480

== ENCOUNTER 2021-12-08 11:03 | Emergency (ER) | payer MEDICARE, OTHER ==
[~2021-12-08] VITALS: Ht 157.5 cm; Wt 77.1 kg
[~2021-12-08 11:03] MED LIST changes: -ALMACONE SUSPE355 ML PO; -FAMO20 PO
[2021-12-08 11:29] LABS: BASOPHILS ABSOLUTE AUTO 0.03 K/mm3 (0.00-0.23); BASOPHILS PERCENT AUTO 0 % (0-2); EOSINOPHILS ABSOLUTE AUTO 0.11 K/mm3 (0.00-0.68); EOSINOPHILS PERCENT AUTO 2 % (0-6); Hematocrit 39.7 % (33.0-51.0); Hemoglobin 12.4 g/dL (11.5-16.0); IMMATURE GRAN ABSOLUTE AUTO 0.02 K/mm3 (0.00-0.10); IMMATURE GRAN PERCENT AUTO 0 % (0-1); LYMPHOCYTES ABSOLUTE AUTO 1.17 K/mm3 (0.84-5.20); LYMPHOCYTES PERCENT AUTO 17 % (21-46); MONOCYTES ABSOLUTE AUTO 0.68 K/mm3 (0.16-1.47); MONOCYTES PERCENT AUTO 10 % (4-13); Mean Corpuscular HGB 29.8 pg (26.0-34.0); Mean Corpuscular HGB Conc 31.2 g/dL (31.5-36.5); Mean Corpuscular Volume 95 fL (80-100); Mean Platelet Volume 9.9 fL (9.1-12.4); NEUTROPHILS ABSOLUTE AUTO 4.95 K/mm3 (1.96-9.15); NEUTROPHILS PERCENT AUTO 71 % (41-73); Platelet Count 173 K/mm3 (150-400); RDW Coefficient Variation 13.2 % (11.7-14.2); RDW Standard Deviation 46.6 fL (35.1-46.3); Red Blood Cell Count 4.16 M/mm3 (3.80-5.20); White Blood Cell Count 6.96 K/mm3 (4.00-11.30)
[2021-12-08 11:38] LABS: Alanine Aminotransfer (ALT/SGP 60 U/L (12-78); Albumin, Blood 3.5 g/dL (3.4-5.0); Albumin/Globulin Ratio 1.2 (0.8-1.8); Alk Phos 51 U/L (50-136); Anion Gap 5 mmol/L (6-16); Aspartate Aminotrans (AST/SGOT 45 U/L (12-37); Bilirubin, Direct 0.2 mg/dL (0.0-0.3); Bilirubin, Indirect 0.6 mg/dL (0.1-0.7); Bilirubin, Total 0.8 mg/dL (0.1-1.0); Blood Urea Nitrogen 21 mg/dL (8-24); Bun/Creatinine Ratio 32.6 (12.0-20.0); CO2, Blood 33 mmol/L (21-32); Calcium, Blood 9.1 mg/dL (8.5-10.1); Chloride, Blood 104 mmol/L (98-108); Creatinine, Blood 0.64 mg/dL (0.40-1.00); Glomerular Filtration Rate >60 (60-); Glucose, Blood 101 mg/dL (70-99); Magnesium, Blood 2.1 mg/dL (1.6-2.4); Potassium, Blood 3.8 mmol/L (3.5-5.5); Sodium, Blood 142 mmol/L (136-145); Total Protein, Blood 6.5 g/dL (6.4-8.2)
[2021-12-08 11:40] LABS: Source, Urine Clean Catch
[2021-12-08 11:53] LABS: Bilirubin, Urine Neg (Neg); Blood, Urine 2+ (Neg); Glucose Qualitative, Urine Neg (Neg); Ketones, Urine Neg (Neg); Leukocyte Esterase, Urine Neg (Neg); Nitrite, Urine Neg (Neg); Protein, Urine 2+ (Neg); Specific Gravity, Urine 1.015 (1.003-1.022); Urobilinogen, Urine NORM (Normal)
[2021-12-08 12:04] LABS: Appearance, Urine Hazy (Clear); Color, Urine Pale Yellow (P-Yellow); White Blood Cells, Urine 0-2 /hpf (0-5)
[2021-12-08 12:05] LABS: Amorphous Light (0-Heavy); Bacteria Mod /hpf; Renal Epithelial Rare /hpf (0-Rare); Squamous Epithelial Cells Few /hpf (Few)
[2021-12-08] MEDS ORDERED: FAMO20 PO (14:31)
[2021-12-08] MEDS ORDERED: ALMACONE SUSPE355 ML PO (14:31)
== END 2021-12-08 14:50 | disposition home or self-care (01) ==
LOC: ER 11:03
PROVIDERS: Student in an Organized Health Care Education/Training Program
DX: R10.9 Unspecified abdominal pain (principal); R11.0 Nausea; I11.0 Hypertensive heart disease with heart failure; I50.9 Heart failure, unspecified; Z87.891 Personal history of nicotine dependence; Z85.828 Personal history of other malignant neoplasm of skin; Z79.899 Other long term (current) drug therapy; Z88.8 Allergy status to other drugs, medicaments and biological substances
CPT/HCPCS: 74177; 80048; 80076; 81001; 83690; 83735; 85025; 87086; 93005; 93010; A9270; J1885; J2405; J3475; Q9967

== ENCOUNTER 2022-01-23 07:05 | Emergency (ER) | payer MEDICARE, OTHER ==
[~2022-01-23] VITALS: Ht 157.5 cm; Wt 74.8 kg
[~2022-01-23 07:05] MED LIST changes: +ALMACONE SUSPE355 ML PO; +FAMO20 PO
[2022-01-23 08:02] LABS: Source, Urine Clean Catch
[2022-01-23 08:05] LABS: Appearance, Urine Clear (Clear); Bilirubin, Urine Neg (Neg); Blood, Urine 4+ (Neg); Color, Urine Yellow (P-Yellow); Glucose Qualitative, Urine Neg (Neg); Ketones, Urine Neg (Neg); Leukocyte Esterase, Urine 1+ (Neg); Nitrite, Urine Neg (Neg); Protein, Urine 2+ (Neg); Urobilinogen, Urine NORM (Normal)
[2022-01-23 08:12] LABS: Bacteria Few /hpf; Red Blood Cells, Urine 0-2 /hpf (0-2); Squamous Epithelial Cells Few /hpf (Few)
[2022-01-23] MEDS ORDERED: CEPH500 PO (09:06)
[2022-01-23] MEDS ORDERED: Pyridium100 MG PO (09:06)
== END 2022-01-23 09:36 | disposition home or self-care (01) ==
LOC: ER 07:05
PROVIDERS: Emergency Medicine
DX: N39.0 Urinary tract infection, site not specified (principal); I11.0 Hypertensive heart disease with heart failure; I50.9 Heart failure, unspecified; Z79.899 Other long term (current) drug therapy
CPT/HCPCS: 81001; 87086; 99283; A9270

== ENCOUNTER 2022-01-25 17:29 | Emergency (ER) | payer MEDICARE, OTHER ==
[~2022-01-25] VITALS: Ht 157.5 cm; Wt 72.6 kg
[~2022-01-25 17:29] MED LIST changes: +Pyridium100 MG PO
[2022-01-25 19:09] LABS: Alanine Aminotransfer (ALT/SGP 31 U/L (12-78); Albumin, Blood 3.6 g/dL (3.4-5.0); Albumin/Globulin Ratio 1.2 (0.8-1.8); Alk Phos 43 U/L (50-136); Anion Gap 5 mmol/L (6-16); Aspartate Aminotrans (AST/SGOT 34 U/L (12-37); Bilirubin, Total 0.4 mg/dL (0.1-1.0); Blood Urea Nitrogen 39 mg/dL (8-24); Bun/Creatinine Ratio 44.1 (12.0-20.0); CO2, Blood 30 mmol/L (21-32); Calcium, Blood 9.5 mg/dL (8.5-10.1); Chloride, Blood 108 mmol/L (98-108); Creatinine, Blood 0.89 mg/dL (0.40-1.00); Glomerular Filtration Rate >60 (60-); Glucose, Blood 101 mg/dL (70-99); Potassium, Blood 4.6 mmol/L (3.5-5.5); Sodium, Blood 143 mmol/L (136-145); Total Protein, Blood 6.6 g/dL (6.4-8.2)
[2022-01-25 20:22] LABS: Source, Urine Straight Cath
[2022-01-25 20:27] LABS: Bilirubin, Urine Neg (Neg); Blood, Urine 3+ (Neg); Glucose Qualitative, Urine Neg (Neg); Ketones, Urine Neg (Neg); Leukocyte Esterase, Urine Neg (Neg); Nitrite, Urine Neg (Neg); Protein, Urine 2+ (Neg); Urobilinogen, Urine NORM (Normal)
[2022-01-25 20:41] LABS: Appearance, Urine Clear (Clear); Color, Urine Yellow (P-Yellow)
[2022-01-25 20:42] LABS: Bacteria Not Seen /hpf; Red Blood Cells, Urine 0-2 /hpf (0-2); Squamous Epithelial Cells Not Seen /hpf (Few); White Blood Cells, Urine Not Seen /hpf (0-5)
[2022-01-25] MEDS ORDERED: Amoxicillin875 MG PO (22:21)
== END 2022-01-25 22:30 | disposition home or self-care (01) ==
LOC: ER 17:29
PROVIDERS: Physician Assistant
DX: E86.0 Dehydration (principal); I48.91 Unspecified atrial fibrillation; R51.9 Headache, unspecified; Z88.8 Allergy status to other drugs, medicaments and biological substances; Z79.899 Other long term (current) drug therapy; I11.0 Hypertensive heart disease with heart failure; M19.90 Unspecified osteoarthritis, unspecified site; I50.9 Heart failure, unspecified; W18.30XA Fall on same level, unspecified, initial encounter
CPT/HCPCS: 36415; 51701; 70450; 71045; 80053; 81001; 84484; 93005; 93010; 99284-25; A9270; J7030

== ENCOUNTER 2022-02-16 10:47 | Emergency (ER) | payer MEDICARE, OTHER ==
[~2022-02-16] VITALS: Ht 157.5 cm; Wt 74.8 kg
[2022-02-16 11:52] LABS: BASOPHILS ABSOLUTE AUTO 0.03 K/mm3 (0.00-0.23); BASOPHILS PERCENT AUTO 1 % (0-2); EOSINOPHILS ABSOLUTE AUTO 0.21 K/mm3 (0.00-0.68); EOSINOPHILS PERCENT AUTO 4 % (0-6); Hematocrit 39.3 % (33.0-51.0); Hemoglobin 12.8 g/dL (11.5-16.0); IMMATURE GRAN ABSOLUTE AUTO 0.01 K/mm3 (0.00-0.10); IMMATURE GRAN PERCENT AUTO 0 % (0-1); LYMPHOCYTES ABSOLUTE AUTO 1.01 K/mm3 (0.84-5.20); LYMPHOCYTES PERCENT AUTO 18 % (21-46); MONOCYTES ABSOLUTE AUTO 0.53 K/mm3 (0.16-1.47); MONOCYTES PERCENT AUTO 9 % (4-13); Mean Corpuscular HGB 30.4 pg (26.0-34.0); Mean Corpuscular HGB Conc 32.6 g/dL (31.5-36.5); Mean Corpuscular Volume 93 fL (80-100); NEUTROPHILS ABSOLUTE AUTO 3.98 K/mm3 (1.96-9.15); NEUTROPHILS PERCENT AUTO 69 % (41-73); Platelet Count 150 K/mm3 (150-400); RDW Coefficient Variation 12.7 % (11.7-14.2); RDW Standard Deviation 43.7 fL (35.1-46.3); Red Blood Cell Count 4.21 M/mm3 (3.80-5.20); White Blood Cell Count 5.77 K/mm3 (4.00-11.30)
[2022-02-16 12:12] LABS: Alanine Aminotransfer (ALT/SGP 50 U/L (12-78); Albumin, Blood 3.8 g/dL (3.4-5.0); Albumin/Globulin Ratio 1.3 (0.8-1.8); Alk Phos 50 U/L (50-136); Anion Gap 6 mmol/L (6-16); Aspartate Aminotrans (AST/SGOT 29 U/L (12-37); Bilirubin, Total 0.8 mg/dL (0.1-1.0); Blood Urea Nitrogen 15 mg/dL (8-24); CO2, Blood 29 mmol/L (21-32); Calcium, Blood 9.3 mg/dL (8.5-10.1); Chloride, Blood 105 mmol/L (98-108); Creatinine, Blood 0.65 mg/dL (0.40-1.00); Glomerular Filtration Rate >60 (60-); Glucose, Blood 97 mg/dL (70-99); Potassium, Blood 3.7 mmol/L (3.5-5.5); Sodium, Blood 140 mmol/L (136-145); Total Protein, Blood 6.8 g/dL (6.4-8.2)
[2022-02-16 12:24] LABS: Source, Urine Clean Catch
[2022-02-16 12:40] LABS: Bilirubin, Urine Neg (Neg); Blood, Urine 3+ (Neg); Glucose Qualitative, Urine Neg (Neg); Ketones, Urine Neg (Neg); Leukocyte Esterase, Urine Neg (Neg); Nitrite, Urine Neg (Neg); Protein, Urine 2+ (Neg); Urobilinogen, Urine NORM (Normal)
[2022-02-16 12:49] LABS: Appearance, Urine Clear (Clear); Color, Urine Pale Yellow (P-Yellow)
[2022-02-16 12:50] LABS: Bacteria Not Seen /hpf; Squamous Epithelial Cells Not Seen /hpf (Few); White Blood Cells, Urine 0-2 /hpf (0-5)
== END 2022-02-16 14:30 | disposition home or self-care (01) ==
LOC: ER 10:47
PROVIDERS: Physician Assistant
DX: R30.0 Dysuria (principal); R07.9 Chest pain, unspecified; R31.9 Hematuria, unspecified; I11.0 Hypertensive heart disease with heart failure; I50.9 Heart failure, unspecified; I48.91 Unspecified atrial fibrillation; Z79.899 Other long term (current) drug therapy; Z88.8 Allergy status to other drugs, medicaments and biological substances; Z87.440 Personal history of urinary (tract) infections
CPT/HCPCS: 36415; 71045; 80053; 81001; 84484; 85025; 93005; 93010; 99283-25

== ENCOUNTER → 2022-02-16 | Outpatient (CLI) | payer MEDICARE, OTHER ==
[~2022-02-16] MED LIST changes: +Amoxicillin875 MG PO
== END | disposition home or self-care (01) ==
LOC: LAB SHORT 10:30 → LAB 10:30
DX: R30.0 Dysuria (principal)
CPT/HCPCS: 87086

== ENCOUNTER 2022-03-25 09:20 | Emergency (ER) | payer MEDICARE, OTHER ==
[~2022-03-25] VITALS: Ht 157.5 cm; Wt 74.8 kg
[2022-03-25 13:16] LABS: Source, Urine Clean Catch
[2022-03-25 13:18] LABS: Appearance, Urine Clear (Clear); Bilirubin, Urine Neg (Neg); Blood, Urine 2+ (Neg); Color, Urine Amber (P-Yellow); Glucose Qualitative, Urine Neg (Neg); Ketones, Urine Neg (Neg); Leukocyte Esterase, Urine Neg (Neg); Nitrite, Urine Neg (Neg); Protein, Urine 1+ (Neg); Urobilinogen, Urine 1+ (Normal)
[2022-03-25 13:37] LABS: Bacteria Few /hpf; Red Blood Cells, Urine 0-2 /hpf (0-2); Squamous Epithelial Cells Mod /hpf (Few); White Blood Cells, Urine 0-2 /hpf (0-5)
== END 2022-03-25 15:53 | disposition home or self-care (01) ==
LOC: ER 09:20
PROVIDERS: Physician Assistant
DX: R30.0 Dysuria (principal); I10 Essential (primary) hypertension; Z88.8 Allergy status to other drugs, medicaments and biological substances; Z79.899 Other long term (current) drug therapy; Z91.81 History of falling
CPT/HCPCS: 81001; 99284

== ENCOUNTER → 2022-04-01 | Outpatient (CLI) | payer MEDICARE, OTHER | END | disposition home or self-care (01) | LOC: LAB SHORT 10:42 → LAB 10:42 | DX: N39.0 Urinary tract infection, site not specified (principal) | CPT/HCPCS: 87086 ==

== ENCOUNTER → 2022-04-12 | Outpatient (CLI) | payer MEDICARE, OTHER | END | disposition home or self-care (01) | LOC: LAB SHORT 18:08 → LAB 18:08 | PROVIDERS: Family Medicine | DX: R30.9 Painful micturition, unspecified (principal); Z79.899 Other long term (current) drug therapy | CPT/HCPCS: 87086 ==

== ENCOUNTER 2022-05-08 12:55 | Inpatient (IN) | payer MEDICARE, OTHER ==
[~2022-05-08] VITALS: Ht 157.5 cm; Wt 75.0 kg
[~2022-05-08 12:55] MED LIST changes: -CLOBETASOL EMOL15 G1; -NARCAN4 M1 NS; -OMEP20ER PO; -POTCHL20ER PO; -SENNA LAXATIVE8.6 MG PO; -TIZA4 PO
[2022-05-08 15:08] LABS: Anti-Xa UFH, PHA Monitoring <0.10 IU/mL; International Normalized Ratio 1.02; Prothrombin Time Results 10.7 Sec (9.7-11.5)
[2022-05-08] MEDS ORDERED: FURO20 PO (15:50)
[2022-05-08] MEDS ORDERED: CLOBETASOL EMOL15 G1 TOP (15:50)
[2022-05-08] MEDS ORDERED: NARCAN4 M1 NS (15:51)
[2022-05-08] MEDS ORDERED: OMEP20ER PO (15:51)
[2022-05-08] MEDS ORDERED: SENNA LAXATIVE8.6 MG PO (15:52)
[2022-05-08] MEDS ORDERED: POTCHL20ER PO (15:52)
[2022-05-08] MEDS ORDERED: ONDA4ODT MM (15:52)
[2022-05-08] MEDS ORDERED: TIZA4 PO (15:53)
--- NOTE | 2022-05-08 18:05 | NUR ---
PT ARRIVED IN THE UNIT, PT WAS TRANSFERRED TO PCU BED VIA SLIDER SHEET, PT IS HERE FOR NSTEMI, PT DENIES ANY CHEST PAIN SINCE ARRIVAL HAS ABDOMINAL PRESSURE 5/10 MOSTLY WITH TOUCH AND PRESSURE PT STATED SHE HAS CONSTIPATION ISSUES. PT IS ALERT AND ORIENTED X3 FORGETFUL AND CONFUSED AT TIMES, TOOK OFF NASAL CANNULA TWICE PT WAS REDIRECTABLE. PT HAS ELEVATED BP UPON ARRIVAL BP SYSTOLIC AT 190'S PROVIDER ORDERED LABETALOL 10MG Q4H FIRST DOSE GIVEN BP SYSTOLIC WENT DOWN TO 150'S FOR AN HOUR THEN WENT BACK UP TO 170'S, PROVIDER CHANGED TO Q2H PRN. HRR AFIB RATE CONTROLLED AT 80'S, ON 2L OF O2 VIA NASAL CANNULA PT DESATS TO 84% ON RA. PT HAS 4+ PITTING EDEMA ON BOTH LOWER EXTREMITIES PROVIDER ALSO MADE AWARE PT RECEIVED LASIX IN THE ER ONE TIME NO CURRENT SCHEDULED DOSE ON THE EMAR PROVIDER TO REVIEW PT'S MEDICATIONS, TROPONIN WENT UP TO 2429 TO TREND TROPONIN PER PROVIDER X3 AND TO MONITOR PT FOR ANY SYMPTOMS. PT SBA FOR TRANSFERS USES BEDSIDE COMMODE FOR TOILETING, SON AT THE BEDSIDE AT THIS TIME, DISCUSSED PLAN OF CARE, PT CURRENTLY EATING DINNER. TO MONITOR PT UNTIL END OF SHIFT
[2022-05-08 23:22] LABS: Source, Urine Clean Catch
[2022-05-08 23:24] LABS: Bilirubin, Urine Neg (Neg); Blood, Urine 1+ (Neg); Glucose Qualitative, Urine Neg (Neg); Ketones, Urine Neg (Neg); Leukocyte Esterase, Urine Neg (Neg); Nitrite, Urine Neg (Neg); Protein, Urine Neg (Neg); Urobilinogen, Urine NORM (Normal)
[2022-05-08 23:34] LABS: Appearance, Urine Clear (Clear); Color, Urine Pale Yellow (P-Yellow)
[2022-05-08 23:35] LABS: Bacteria Not Seen /hpf; Red Blood Cells, Urine 0-2 /hpf (0-2); Squamous Epithelial Cells Not Seen /hpf (Few); White Blood Cells, Urine Not Seen /hpf (0-5)
[2022-05-09 05:09] LABS: BASOPHILS ABSOLUTE AUTO 0.02 K/mm3 (0.00-0.23); BASOPHILS PERCENT AUTO 0 % (0-2); EOSINOPHILS ABSOLUTE AUTO 0.07 K/mm3 (0.00-0.68); EOSINOPHILS PERCENT AUTO 1 % (0-6); Hematocrit 39.7 % (33.0-51.0); IMMATURE GRAN ABSOLUTE AUTO 0.01 K/mm3 (0.00-0.10); IMMATURE GRAN PERCENT AUTO 0 % (0-1); LYMPHOCYTES ABSOLUTE AUTO 0.91 K/mm3 (0.84-5.20); LYMPHOCYTES PERCENT AUTO 13 % (21-46); MONOCYTES ABSOLUTE AUTO 0.66 K/mm3 (0.16-1.47); MONOCYTES PERCENT AUTO 10 % (4-13); Mean Corpuscular HGB 29.6 pg (26.0-34.0); Mean Corpuscular HGB Conc 30.2 g/dL (31.5-36.5); Mean Corpuscular Volume 98 fL (80-100); Mean Platelet Volume 9.9 fL (9.1-12.4); NEUTROPHILS ABSOLUTE AUTO 5.27 K/mm3 (1.96-9.15); NEUTROPHILS PERCENT AUTO 76 % (41-73); Platelet Count 121 K/mm3 (150-400); RDW Coefficient Variation 13.2 % (11.7-14.2); RDW Standard Deviation 47.3 fL (35.1-46.3); Red Blood Cell Count 4.06 M/mm3 (3.80-5.20); White Blood Cell Count 6.94 K/mm3 (4.00-11.30)
--- NOTE | 2022-05-09 05:18 | NUR ---
SHIFT SUMMARY ASSUMED CARE OF PT AT 1900. PT IS A/O2. PT KNOWS SELF, FAMILY AND WHERE SHE IS AFTER BEING ORIENTED. PT AWAOKE MULTIPLE TIMES CONFUSED ABOUT WHERE SHE IS AND ATTEMPTS TO GET OUT OF BED WITHOUT USING THE CALL BUTTON. HEART SOUNDS REGULAR, LUNG SOUNDS DIMINISHED AT THE BASES. PT WORE 2LNC ON/OFF T/O THE NIGHT. WHILE RESTING IN BED PT SATURATIONS WHERE ABOVE 95% BUT WHEN PT WOULD GET BACK INTO BED AFTER THE BSC, PT SATURATIONS WERE IN THE 80S AND NEEDED OXYGEN, PT WOULD RECOVER QUICKLY. PT WAS CON/INC OF URINE T/O THE NIGHT. PT URINE HAS STRONG SMELL, UA COLLECTED. PT LEGS ARE VERY EDEMADOUS WITH 3+ PITTING EDEMA. PT C/O ABD PAIN ONCE, BUT FELL BACK ASLEEP. PT C/O HEADACHE, WHICH WENT AWAY WITH TYLENOL. HEPRIN INFUSING T/O THE NIGHT.
[2022-05-09 05:29] LABS: Bun/Creatinine Ratio 26.9 (12.0-20.0); Calcium, Blood 8.8 mg/dL (8.5-10.1); Creatinine, Blood 0.93 mg/dL (0.40-1.00); Magnesium, Blood 2.2 mg/dL (1.6-2.4); Potassium, Blood 3.7 mmol/L (3.5-5.5)
--- NOTE | 2022-05-09 18:48 | NUR ---
PT'S EVENING COREG AND LASIX HELD FOR HYPOTENSION, PT ALSO WITH SOFT PRESSURES THIS AFTERNOON POST MEDICATION ADMINISTRATION, CHARGE NURSE SIRENA CONSULTED AND DECISION WAS MADE TO HOLD MEDS FOR PRESSURE. PT ALERT, ORIENTED X3 INTERMITTENLY, HER MENTATION WAXES AND WANES, BECOMES VERY CONFUSED UPON WAKING. PT DENIES SOB OR CP. PT WAS UP TO BEDSIDE COMMODE T/O THE DAY NEEDED 1 PERSON ASSIST WITH FWW. PT'S SON HAS BEEN IN AND OUT T/O THE DAY, SON IS LABILE WITH STAFF WHEN IN ROOM. PT OTHERWISE REPORTS THAT SHE IS OVERALL FEELING "BETTER" TODAY. GOOD APPETITE.
--- NOTE | 2022-05-10 06:08 | NUR ---
SHIFT SUMMARY ASSUMED CARE OF PT AT 1900. PT IS ALERT AND CONFUSED AT TIMES. PT NEEDS TO BE REORIENTED OFTEN. HEART SOUNDS IRREGULAR, LUNG SOUNDS CLEAR. PT REMAINED ON 2-4L NC DUE TO DESATURATION WITH ACTIVITY. PT WILL PULL OFF OXYGEN WHEN SLEEPING AND DESAT TO 80% BUT WILL RECOVER QUICKY WHEN PUT ON 4L. PT 1P SBA TO BSC. 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
[2022-05-10 09:48] LABS: Hematocrit 36.8 % (33.0-51.0); Hemoglobin 11.4 g/dL (11.5-16.0); Platelet Count 107 K/mm3 (150-400)
--- NOTE | 2022-05-10 10:19 | NUR ---
PT'S MENTATION CHANGES FREQUENTLY. PT PARANOID BELIEVES THAT THE HOSPITAL IS KEEPING HER SON AWAY HE WAS LATE ARRIVING THIS MORNING. PT STS THAT "THE OTHER HOSPITAL TELLS ME WHAT IS GOING ON" PT HAS BEEN UPDATED NUMEROUS TIMES BUT CONTINUES TO REPORT NO ONE IS UPDATING HER. PT STS THAT SHE IS AWARE THAT SHE IS IN [place], BUT BELIEVES SHE IS AT [facility] AND WANTS TO COME TO THE "OTHER HOSPITAL" WHEN RE-ORIENTED PT SAYS "I KNOW"
--- NOTE | 2022-05-10 15:11 | NUR ---
REPORT CALLED TO CHRISSY AVILEZ AT THIS TIME
--- NOTE | 2022-05-10 18:49 | NUR ---
1655 RECEIVED PT TO RM 303 FROM PCU 17. PT IS A&O, PLEASANT AND CO-OP; SOME CONFUSION REPORTED AND NOTED. HEPARIN DRIP INFUSING PER EMAR FOR ELEVATED TROPONINS, WHICH HAVE BEEN DECREASING; SEE CHART. HX OF A-FIB; ON TELE. HX OF CHF; RECEIVING IV LASIX. UP TO BSC WITH 1P ASSIST. LIVES WITH SON, WHO CAME IN TO VISIT AFTER WORK THIS AFTERNOON. DENIES FURTHER NEEDS AT THIS TIME. BACK TO BED AFTER DINNER, RESTING QUIETLY WATCHING TV. CALL LT IN REACH. BED ALARM ON FOR SAFETY.
--- NOTE | 2022-05-10 22:04 | NUR ---
REVIEWED DR. PORTER PROGRESS NOTES, AND DR. GARCIA PROGRESS NOTE, BOTH STATE OK TO DC HEPARIN 48 HOURS AFTER INITIATION. REVIEWED WITH CLAYTON GONSALVES. CONTACTED DR. NIETO REVIEWED ABOVE INFORMATION, AND PT IS ON COREG - ORDER TO DC HEPARIN. HEPARIN TURNED OFF. NOTIFIED J CARLOS PHARMACIST OF DC HEPARIN ORDER.
--- NOTE | 2022-05-11 03:13 | NUR ---
PT MOANS IN HER SLEEP. PT AWARE OF THIS, REPORTS HER SON TELLS HER THE SAME THING. DENIES ANY COMPLAINTS OF PAIN, DISCOMFORT. CALL LIGHT WITHIN REACH. BED IN LOW POSITION. CALL LIGHT WITHIN RECAH.
--- NOTE | 2022-05-11 04:46 | NUR ---
SHIFT SUMMARY - NO ACUTE CHANGES THROUGHOUT THIS SHIFT. PT DENIED ANY CHEST PAIN THROUGHOUT THE NIGHT. HEPARIN DC'D TONIGHT PER ORDER. PT UP TO BSC WITH 1 PERSON SBA LAST NOC. PT HAS 3+ BLE EDEMA. PT IS ON LASIX, PER EMAR. PT DENIED ANY HEADACHE, SOB, NAUSEA, OR NUMBNESS AND TINGLING THROUGHOUT THE NIGHT. PT MEDICATED FOR ABDOMINAL PAIN THIS AM - SEE EMAR. CALL LIGHT WITHIN REACH. BED IN LOW POSITION. FLUIDS AT BEDSIDE. WILL CONTINUE TO MONITOR UNTIL AM SHIFT CHANGE. BED ALARM ON FOR PT SAFETY.
[2022-05-11 04:55] LABS: BASOPHILS ABSOLUTE AUTO 0.01 K/mm3 (0.00-0.23); BASOPHILS PERCENT AUTO 0 % (0-2); EOSINOPHILS ABSOLUTE AUTO 0.08 K/mm3 (0.00-0.68); EOSINOPHILS PERCENT AUTO 2 % (0-6); Hematocrit 34.4 % (33.0-51.0); Hemoglobin 10.7 g/dL (11.5-16.0); IMMATURE GRAN ABSOLUTE AUTO 0.02 K/mm3 (0.00-0.10); IMMATURE GRAN PERCENT AUTO 1 % (0-1); LYMPHOCYTES ABSOLUTE AUTO 0.61 K/mm3 (0.84-5.20); LYMPHOCYTES PERCENT AUTO 14 % (21-46); MONOCYTES ABSOLUTE AUTO 0.62 K/mm3 (0.16-1.47); MONOCYTES PERCENT AUTO 14 % (4-13); Mean Corpuscular HGB 30.2 pg (26.0-34.0); Mean Corpuscular HGB Conc 31.1 g/dL (31.5-36.5); Mean Corpuscular Volume 97 fL (80-100); Mean Platelet Volume 10.4 fL (9.1-12.4); NEUTROPHILS PERCENT AUTO 70 % (41-73); Platelet Count 101 K/mm3 (150-400); RDW Coefficient Variation 13.1 % (11.7-14.2); Red Blood Cell Count 3.54 M/mm3 (3.80-5.20); White Blood Cell Count 4.44 K/mm3 (4.00-11.30)
[2022-05-11 05:10] LABS: Bun/Creatinine Ratio 23.2 (12.0-20.0); Calcium, Blood 9.1 mg/dL (8.5-10.1); Creatinine, Blood 0.99 mg/dL (0.40-1.00); Potassium, Blood 4.1 mmol/L (3.5-5.5)
--- NOTE | 2022-05-11 16:25 | NUR ---
DAY SHIFT SUMMARY 81 YR OLD FEMALE WITH NSTEMI. C/O ABDOMINAL PAIN, MEDICATED PER EMAR. SON AT BEDSIDE. PT ON TELE WITH AFIB AT 90, ON 2L O2 WITH RA AT BASELINE. 3+ EDEMA TO BILATERAL LOWER EXTREMITIES. CALL LIGHT WITHIN REACH AND ABLE TO CALL APPROPRIATE. STANDBY ASSIST WITH WALKER. INTERMITTEN SLIGHT CONFUSION THIS SHIFT. BED ALARM ON. PT LIVES WITH SON AND PLAN IS TO SEND PT BACK HOME WITH SON WITH HOME HEALTH.
--- NOTE | 2022-05-12 04:06 | NUR ---
SHIFT SUMMARY A/O 2-3, FORGETFUL. 1P ASSIST TO BATHROOM WITH FWW. PT MOANING WITH C/O ABD PAIN, MEDICATED PER EMAR. TELE AFIB 70S-80S. VSS, NO ACUTE CHANGES AT THIS TIME. BED IN LOWEST POSITION WITH CALL LIGHT IN REACH. WILL CONTINUE TO MONITOR AND REPORT TO ONCOMING RN.
[2022-05-12 05:03] LABS: BASOPHILS ABSOLUTE AUTO 0.02 K/mm3 (0.00-0.23); BASOPHILS PERCENT AUTO 0 % (0-2); EOSINOPHILS PERCENT AUTO 2 % (0-6); Hematocrit 36.6 % (33.0-51.0); Hemoglobin 11.3 g/dL (11.5-16.0); IMMATURE GRAN ABSOLUTE AUTO 0.01 K/mm3 (0.00-0.10); IMMATURE GRAN PERCENT AUTO 0 % (0-1); LYMPHOCYTES ABSOLUTE AUTO 0.78 K/mm3 (0.84-5.20); LYMPHOCYTES PERCENT AUTO 15 % (21-46); MONOCYTES ABSOLUTE AUTO 0.67 K/mm3 (0.16-1.47); MONOCYTES PERCENT AUTO 13 % (4-13); Mean Corpuscular HGB 30.2 pg (26.0-34.0); Mean Corpuscular HGB Conc 30.9 g/dL (31.5-36.5); Mean Corpuscular Volume 98 fL (80-100); Mean Platelet Volume 10.2 fL (9.1-12.4); NEUTROPHILS ABSOLUTE AUTO 3.51 K/mm3 (1.96-9.15); NEUTROPHILS PERCENT AUTO 69 % (41-73); Platelet Count 113 K/mm3 (150-400); RDW Coefficient Variation 13.1 % (11.7-14.2); RDW Standard Deviation 46.9 fL (35.1-46.3); Red Blood Cell Count 3.74 M/mm3 (3.80-5.20); White Blood Cell Count 5.09 K/mm3 (4.00-11.30)
[2022-05-12 05:41] LABS: Bun/Creatinine Ratio 26.9 (12.0-20.0); Calcium, Blood 9.3 mg/dL (8.5-10.1); Creatinine, Blood 0.89 mg/dL (0.40-1.00); Potassium, Blood 4.4 mmol/L (3.5-5.5)
--- NOTE | 2022-05-12 10:08 | NUR ---
PT'S SON PT'S SON CAME IN THIS AM AT 8AM. SON BROUGHT IN MOCHAS AND BROWNIES. SON COMPLAINED THAT HIS MOM DOES NOT EAT FOOD BUT NEEDS CHOCOLATE TO MAKE HER FEEL BETTER AND TO BE ABLE TO HAVE A BOWEL MOVEMENT, SON POORED OUT PT'S DRINKS AND STATED SHE NEEDED TO DRINK THE [employer] MOCHA HE BROUGHT HER, THEN CONTINUED TO COMPLAIN THAT NO ONE HAS HELPED HER AND SHE ISN'T GETTING BETTER. THIS NURSE EXPLAINED TO THE SON THAT SHE DID HAVE A BOWEL MOVEMENT YESTERDAY PER THE CHART, AND THE PT IS ON A CARDIAC DIET, PT CAME IN WITH NSTEMI AND REMOVING LARGE AMOUNTS OF CAFFIENE FROM THE DIET CAN BENIFIT HER CARE. THE SON BECAME AGGITATED AND ACCUSED STAFF OF KEEPING INFO FROM HIM. HE CAME INTO THE BLOOM SEVERAL TIMES ACCUSING STAFF OF NOT BEING UPFRONT AND TRYING TO HIDE THINGS FROM HIM ABOUT HIS MOTHER. HE THEN STATED "I DON'T WANT TO HAVE TO HURT ANYONE BUT SOMETHING NEEDS TO BE DONE." THIS NURSE AGAIN TRIED TO SPEAK WITH THE SON ABOUT THE MOTHER'S CARE. 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 ONCE SON LEFT THE PT'S ROOM THE PT BEGAN TO MOAN AND YELL "HELP ME" REPEATEDLY. WHEN ASK SHE STATES SHE NEEDS TO USE THE RESTROOM. PT IS UNABLE TO OPEN HER EYES AND UNABLE TO HELP GET TO THE SIDE OF THE BED FOR THE BSC. PT HAS BEEN MEDICATED FOR PAIN THIS AM SHE HAD C/O ABDOMINAL PAIN EARLIER. PT IS WEARING AN ATTENDS. MADE AWARE OF SITUATION.
--- NOTE | 2022-05-12 17:41 | NUR ---
DAY SHIFT SUMMARY PT IS AN 81 YR OLD FEMALE WITH NSTEMI. TELE SHOWED DEPRESSED ST WAVES THIS SHIFT, MD AWARE. EKG 12 LEAD PERFORMED. PT PLACED ON STRICT I&O AND FLUID RESTRICTIONS OF 2000 ML. PT WITH 3+ EDEMA TO LOWER EXTEMITIES. PT MOANING THROUGHOUT SHIFT STATING "HELP ME" PT MEDICATED PER EMAR. 2L O2 NC. TELE READING AFIB AT 92 CURRENTLY. CALL LIGHT WITHIN REACH.
--- NOTE | 2022-05-12 20:45 | NUR ---
UPDATE PT CONTINUES TO BE LETHARGIC, MOANS AND RESPONDS WITH ONE WORD ANSWERS. COMPARED TO PREVIOUS NIGHT, PT WAS A/O 2-3 AND WAS UP 1 ASSIST. BP SOFT, TELE AFIB IN THE 80S. FLOOR LAYER TILE MD NOTIFIED, BNP ORDERED, WILL CONTINUE TO MONITOR.
--- NOTE | 2022-05-13 04:57 | NUR ---
SHIFT SUMMARY LETHARGIC T/O SHIFT, OCCASIONALLY MOANS. RESPONDS TO VERBAL STIMULI. INCREASING WEAKNESS, PREVIOUSLY PATIENT WAS 1ASSIST TO BSC. DENIES CHEST PAIN/PRESSURE. TELE AFIB 70S-80S WITH EPISODE OF ST DEPRESSION THIS SHIFT. BED IN LOWEST POSITION WITH CALL LIGHT IN REACH. WILL CONTINUE TO MONITOR AND REPORT TO ONCOMING RN.
[2022-05-13 13:00] LABS: BASOPHILS ABSOLUTE AUTO 0.02 K/mm3 (0.00-0.23); BASOPHILS PERCENT AUTO 0 % (0-2); EOSINOPHILS ABSOLUTE AUTO 0.09 K/mm3 (0.00-0.68); EOSINOPHILS PERCENT AUTO 2 % (0-6); Hematocrit 37.3 % (33.0-51.0); Hemoglobin 11.4 g/dL (11.5-16.0); IMMATURE GRAN ABSOLUTE AUTO 0.02 K/mm3 (0.00-0.10); IMMATURE GRAN PERCENT AUTO 0 % (0-1); LYMPHOCYTES ABSOLUTE AUTO 0.69 K/mm3 (0.84-5.20); LYMPHOCYTES PERCENT AUTO 12 % (21-46); MONOCYTES ABSOLUTE AUTO 0.62 K/mm3 (0.16-1.47); MONOCYTES PERCENT AUTO 11 % (4-13); Mean Corpuscular HGB 30.2 pg (26.0-34.0); Mean Corpuscular HGB Conc 30.6 g/dL (31.5-36.5); Mean Corpuscular Volume 99 fL (80-100); Mean Platelet Volume 10.1 fL (9.1-12.4); NEUTROPHILS PERCENT AUTO 75 % (41-73); Platelet Count 128 K/mm3 (150-400); RDW Coefficient Variation 13.2 % (11.7-14.2); RDW Standard Deviation 47.6 fL (35.1-46.3); Red Blood Cell Count 3.78 M/mm3 (3.80-5.20); White Blood Cell Count 5.74 K/mm3 (4.00-11.30)
[2022-05-13 13:45] LABS: Bun/Creatinine Ratio 26.6 (12.0-20.0); Calcium, Blood 9.3 mg/dL (8.5-10.1); Creatinine, Blood 1.24 mg/dL (0.40-1.00); Potassium, Blood 4.7 mmol/L (3.5-5.5)
--- NOTE | 2022-05-14 05:27 | NUR ---
SHIFT SUMMARY A/OX2, ANXIOUS AND MOANING T/O THE SHIFT. INCONT, ATTENDS IN PLACE. 1P ASSIST WITH FWW FOR TRANSFERS. TELE AFIB 70S-90S. CURRENTLY ON 4L O2. VSS, NO ACUTE CHANGES AT THIS TIME. BED IN LOWEST POSITION WITH CALL LIGHT IN REACH. WILL CONTINUE TO MONITOR AND REPORT TO ONCOMING RN.
[2022-05-14 09:51] LABS: BASOPHILS ABSOLUTE AUTO 0.02 K/mm3 (0.00-0.23); BASOPHILS PERCENT AUTO 0 % (0-2); EOSINOPHILS ABSOLUTE AUTO 0.08 K/mm3 (0.00-0.68); EOSINOPHILS PERCENT AUTO 1 % (0-6); Hematocrit 35.3 % (33.0-51.0); IMMATURE GRAN ABSOLUTE AUTO 0.01 K/mm3 (0.00-0.10); IMMATURE GRAN PERCENT AUTO 0 % (0-1); LYMPHOCYTES ABSOLUTE AUTO 0.57 K/mm3 (0.84-5.20); LYMPHOCYTES PERCENT AUTO 8 % (21-46); MONOCYTES ABSOLUTE AUTO 0.65 K/mm3 (0.16-1.47); MONOCYTES PERCENT AUTO 9 % (4-13); Mean Corpuscular HGB 30.3 pg (26.0-34.0); Mean Corpuscular HGB Conc 31.2 g/dL (31.5-36.5); Mean Corpuscular Volume 97 fL (80-100); Mean Platelet Volume 10.1 fL (9.1-12.4); NEUTROPHILS ABSOLUTE AUTO 5.66 K/mm3 (1.96-9.15); NEUTROPHILS PERCENT AUTO 81 % (41-73); Platelet Count 117 K/mm3 (150-400); RDW Coefficient Variation 12.9 % (11.7-14.2); RDW Standard Deviation 46.5 fL (35.1-46.3); Red Blood Cell Count 3.63 M/mm3 (3.80-5.20); White Blood Cell Count 6.99 K/mm3 (4.00-11.30)
[2022-05-14 10:10] LABS: Albumin/Globulin Ratio 1.1 (0.8-1.8); Bilirubin, Total 0.3 mg/dL (0.1-1.0); Bun/Creatinine Ratio 33.9 (12.0-20.0); Calcium, Blood 9.1 mg/dL (8.5-10.1); Creatinine, Blood 1.12 mg/dL (0.40-1.00); Globulin, Blood 2.8 g/dL (2.2-4.0); Potassium, Blood 4.5 mmol/L (3.5-5.5); Total Protein, Blood 5.8 g/dL (6.4-8.2)
[2022-05-14 12:19] LABS: Thyroid Stimulating Hormone 1.09 uIU/mL (0.360-4.800)
--- NOTE | 2022-05-14 15:15 | NUR ---
ASSUMED CARE AT 1515. REPORT RECEIVED FROM RN. PATIENT IS UP IN CHAIR WITH O2 ON, SON AT BEDSIDE. CHAIR ALARM SET. WILL CONT TO MONITOR
--- NOTE | 2022-05-14 15:23 | NUR ---
SHIFT SUMMARY PATIENT DENIES PAIN, NAUSEA, AND SHORTNESS OF BREATH. PATIENT IS A 1P ASSIST WITH A FWW. PATIENT WORKED WITH PT AND OT TODAY. THEY ARE RECOMMENDING HOME HEALTH. PATIENT SON AT BEDSIDE THROUGHOUT SHIFT. PATIENT ON 2L VIA N/C WHEN AT REST. PATIENT POSSIBLE DISCHARGE TOMORROW, WITH NEW HOME O2 EVAL TOMORROW, 05/15. PATIENT IS EATING AND DRINKING WELL. PATIENT IS PLEASANTLY CONFUSED AND COOPERATIVE WITH CARE.
--- NOTE | 2022-05-14 17:58 | NUR ---
SHIFT SUMMARY NO ACUTE CHANGES SINCE ASSUMING CARE. ANTICIPATE PATIENT TO DC HOME WITH HER SON TOMORROW AFTER NEW HOME O2 EVAL. ASSISTED HER SON TO START PROCESS FOR MEDICAID FOR LTC. APPONTMENT SECURED FOR 05/27 AT 1330. PROVIDED WRITTEN INFO FOR HIM TO TAKE HOME AND AUTH REP FORM TO BRING TO APPOINTMENT WITH [facility]. PATIENT IS A STAND BY ASSIST TO THE CHAIR. CHAIR AND BED ALRMS SET NEEDED. WILL CONT TO MONITOR UNTIL CHANGE OF SHIFT AND REPORT TO NIGHT RN.
--- NOTE | 2022-05-15 04:14 | NUR ---
SHIFT SUMMARY PT MOANING THROUGHOUT THE SHIFT. GIVEN PAIN MEDICATION AND SHE CONTINUES TO MOAN. OTHER NURSES WHO HAVE HAD HER PREVIOUSLY STATE THIS IS SOMETHING SHE DOES. PT CONTINUES TO BE INCONTINENT. CLEAN ATTENDS IS IN PLACE. PT CONTINUES TO BE PLEASANTLY CONFUSED. CALL LIGHT IS WITHIN PT REACH. PT CONTINUES TO BE ON TELEMETRY AND CONTINUOUS BIOX. TELE IS 80'S-90'S AFIB.
--- NOTE | 2022-05-15 05:38 | NUR ---
SHIFT SUMMARY UPDATE PT CONTINUES TO MOAN AND IS NOW CALLING OUT. PT HAS BEEN CHECKED ON SEVERAL TIMES. EACH TIME THE PT STS THAT WE ARE HOLDING HER PRISONER HERE AND THAT SHE WANTS TO GO HOME BECAUSE NOONE IS HELPING HER. I HAVE TRIED EXPLAINING TO THE PT THAT SHE IS BEING HELPED AND THAT SHE WILL HOPEFULLY BE ABLE TO BE DISCHARGED TO HER SON TODAY. PT IS UNHAPPY WITH THAT AND WANTS TO LEAVE NOW. I WILL PASS THIS INFORMATION ON TO THE ONCOMING STAFF.
[2022-05-15] MEDS ORDERED: ASPI81CH PO (13:36)
[2022-05-15] MEDS ORDERED: DOCU100 PO (13:37)
[2022-05-15] MEDS ORDERED: Vitamin B Comple1 EA PO (13:40)
[2022-05-15] MEDS ORDERED: Acetaminophen325 M1 PO (13:40)
[2022-05-15] MEDS ORDERED: ATOR40TA PO (13:41)
--- NOTE | 2022-05-15 14:31 | NUR ---
DISCHARGE PATIENT TRANSPORTED VIA WHEELCHAIR TO PRIVATE VEHICLE. DISCHARGE INSTRUCTIONS EXPLAINED TO PATIENT AND SON. BOTH STATED UNDERSTANDING. PACKET SENT WITH PATIENT. BELONGINGS SENT WITH PATIENT. IV REMOVED WITHOUT DIFFICULTY. TELE REMOVED WITHOUT DIFFICULTY. MEDICATIONS FAXED TO PREFERRED PHARMACY. [facility] TO CALL PATIENT TO SCHEDULE FOLLOW UP. LAWANDA DROPPED OFF PORTABLE TANK, SENT WITH PATIENT. LAWANDA TO MEET PATIENT AT THEIR HOME.
== END 2022-05-15 14:23 | disposition home health service (06) | DRG 280 ==
LOC: ER 12:55 → MEDS 14:20 → PCU 14:20 → MEDS 05-10 16:54 → ENPENDDIS 05-11 17:22 → MEDS 05-15 14:23
PROVIDERS: Family Medicine; ADMIT Internal Medicine
DX: I21.4 Non-ST elevation (NSTEMI) myocardial infarction (principal); I50.23 Acute on chronic systolic (congestive) heart failure; J96.01 Acute respiratory failure with hypoxia; I48.20 Chronic atrial fibrillation, unspecified; E87.0 Hyperosmolality and hypernatremia; E85.9 Amyloidosis, unspecified; I11.0 Hypertensive heart disease with heart failure; M81.0 Age-related osteoporosis without current pathological fracture; M19.90 Unspecified osteoarthritis, unspecified site; M41.9 Scoliosis, unspecified; F41.1 Generalized anxiety disorder; K21.9 Gastro-esophageal reflux disease without esophagitis; D69.6 Thrombocytopenia, unspecified; K58.9 Irritable bowel syndrome, unspecified; G89.29 Other chronic pain; M54.9 Dorsalgia, unspecified; F03.90 Unspecified dementia, unspecified severity, without behavioral disturbance, psychotic disturbance, mood disturbance, and anxiety; Z96.652 Presence of left artificial knee joint; Z96.643 Presence of artificial hip joint, bilateral; Z91.14 Patient's other noncompliance with medication regimen; Z85.828 Personal history of other malignant neoplasm of skin; Z90.49 Acquired absence of other specified parts of digestive tract; Z90.11 Acquired absence of right breast and nipple; Z85.3 Personal history of malignant neoplasm of breast; Z88.8 Allergy status to other drugs, medicaments and biological substances; Z79.899 Other long term (current) drug therapy
CPT/HCPCS: 36415; 80048; 80053; 81001; 82607; 82746; 83090; 83735; 83880; 84443; 84484; 85014; 85018; 85025; 85049; 85520; 85610; 85730; 93005; 93010; 94761; 94762; 96374; 97162; 97166; 97530; 97535; 99285-25; A9270; J1644; J1650; J1940; J2405

== ENCOUNTER → 2022-05-08 | Outpatient (CLI) | payer MEDICARE, OTHER ==
[~2022-05-08] MED LIST changes: +CLOBETASOL EMOL15 G1; +NARCAN4 M1 NS; +OMEP20ER PO; +POTCHL20ER PO; +SENNA LAXATIVE8.6 MG PO; +TIZA4 PO
[2022-05-08 12:16] LABS: BASOPHILS ABSOLUTE AUTO 0.03 K/mm3 (0.00-0.23); BASOPHILS PERCENT AUTO 0 % (0-2); EOSINOPHILS ABSOLUTE AUTO 0.02 K/mm3 (0.00-0.68); EOSINOPHILS PERCENT AUTO 0 % (0-6); Hematocrit 39.8 % (33.0-51.0); Hemoglobin 12.5 g/dL (11.5-16.0); IMMATURE GRAN ABSOLUTE AUTO 0.04 K/mm3 (0.00-0.10); IMMATURE GRAN PERCENT AUTO 1 % (0-1); LYMPHOCYTES ABSOLUTE AUTO 0.77 K/mm3 (0.84-5.20); LYMPHOCYTES PERCENT AUTO 11 % (21-46); MONOCYTES ABSOLUTE AUTO 0.46 K/mm3 (0.16-1.47); MONOCYTES PERCENT AUTO 7 % (4-13); Mean Corpuscular HGB 29.9 pg (26.0-34.0); Mean Corpuscular HGB Conc 31.4 g/dL (31.5-36.5); Mean Corpuscular Volume 95 fL (80-100); Mean Platelet Volume 10.2 fL (9.1-12.4); NEUTROPHILS ABSOLUTE AUTO 5.46 K/mm3 (1.96-9.15); NEUTROPHILS PERCENT AUTO 81 % (41-73); Platelet Count 142 K/mm3 (150-400); RDW Coefficient Variation 13.6 % (11.7-14.2); RDW Standard Deviation 47.7 fL (35.1-46.3); Red Blood Cell Count 4.18 M/mm3 (3.80-5.20); White Blood Cell Count 6.78 K/mm3 (4.00-11.30)
[2022-05-08 12:20] LABS: Albumin, Blood 3.4 g/dL (3.4-5.0); Albumin/Globulin Ratio 1.2 (0.8-1.8); Bilirubin, Total 0.5 mg/dL (0.1-1.0); Bun/Creatinine Ratio 30.4 (12.0-20.0); Calcium, Blood 9.2 mg/dL (8.5-10.1); Creatinine, Blood 0.92 mg/dL (0.40-1.00); Globulin, Blood 2.9 g/dL (2.2-4.0); Potassium, Blood 4.3 mmol/L (3.5-5.5); Total Protein, Blood 6.3 g/dL (6.4-8.2)
== END | disposition home or self-care (01) ==
LOC: LAB 12:03 → LAB SHORT 12:03
PROVIDERS: Physician Assistant
DX: R07.9 Chest pain, unspecified (principal); R06.00 Dyspnea, unspecified
CPT/HCPCS: 80053; 83880; 84484; 85025

== ENCOUNTER 2022-06-01 16:08 | Inpatient (IN) | payer MEDICARE, OTHER ==
[~2022-06-01] VITALS: Ht 157.5 cm; Wt 75.1 kg
[~2022-06-01 16:08] MED LIST changes: +ATOR40TA PO; +Acetaminophen325 M1 PO; +CLOBETASOL EMOL15 G1 TOP; +NARCAN4 M1 NS; +OMEP20ER PO; +POTCHL20ER PO; +SENNA LAXATIVE8.6 MG PO; +TIZA4 PO; +Vitamin B Comple1 EA PO
[2022-06-01 17:22] LABS: BASOPHILS ABSOLUTE AUTO 0.01 K/mm3 (0.00-0.23); BASOPHILS PERCENT AUTO 0 % (0-2); EOSINOPHILS ABSOLUTE AUTO 0.09 K/mm3 (0.00-0.68); EOSINOPHILS PERCENT AUTO 1 % (0-6); Hematocrit 37.6 % (33.0-51.0); Hemoglobin 11.8 g/dL (11.5-16.0); IMMATURE GRAN ABSOLUTE AUTO 0.02 K/mm3 (0.00-0.10); IMMATURE GRAN PERCENT AUTO 0 % (0-1); LYMPHOCYTES ABSOLUTE AUTO 0.98 K/mm3 (0.84-5.20); LYMPHOCYTES PERCENT AUTO 15 % (21-46); MONOCYTES ABSOLUTE AUTO 0.56 K/mm3 (0.16-1.47); MONOCYTES PERCENT AUTO 9 % (4-13); Mean Corpuscular HGB 29.6 pg (26.0-34.0); Mean Corpuscular HGB Conc 31.4 g/dL (31.5-36.5); Mean Corpuscular Volume 94 fL (80-100); NEUTROPHILS ABSOLUTE AUTO 4.94 K/mm3 (1.96-9.15); NEUTROPHILS PERCENT AUTO 75 % (41-73); Platelet Count 145 K/mm3 (150-400); RDW Coefficient Variation 12.8 % (11.7-14.2); RDW Standard Deviation 44.4 fL (35.1-46.3); Red Blood Cell Count 3.99 M/mm3 (3.80-5.20)
[2022-06-01 17:47] LABS: Albumin, Blood 3.5 g/dL (3.4-5.0); Albumin/Globulin Ratio 1.2 (0.8-1.8); Bilirubin, Total 0.4 mg/dL (0.1-1.0); Bun/Creatinine Ratio 27.5 (12.0-20.0); Calcium, Blood 9.7 mg/dL (8.5-10.1); Creatinine, Blood 0.95 mg/dL (0.40-1.00); Globulin, Blood 2.8 g/dL (2.2-4.0); Potassium, Blood 3.8 mmol/L (3.5-5.5); Total Protein, Blood 6.3 g/dL (6.4-8.2)
[2022-06-01 20:00] LABS: Source, Urine Clean Catch
[2022-06-01 20:10] LABS: Appearance, Urine Clear (Clear); Bilirubin, Urine Neg (Neg); Blood, Urine 2+ (Neg); Color, Urine Yellow (P-Yellow); Glucose Qualitative, Urine Neg (Neg); Ketones, Urine Neg (Neg); Leukocyte Esterase, Urine Neg (Neg); Nitrite, Urine Neg (Neg); Protein, Urine 1+ (Neg); Urobilinogen, Urine NORM (Normal)
[2022-06-01 20:15] LABS: Bacteria Few /hpf; Hyaline Casts 0-2 /lpf (0-2); Squamous Epithelial Cells Few /hpf (Few); White Blood Cells, Urine 0-2 /hpf (0-5)
[2022-06-01] MEDS ORDERED: SPIR25 PO (20:23)
[2022-06-01 21:44] LABS: Influenza A, PCR NEGATIVE (NEGATIVE); Influenza B, PCR NEGATIVE (NEGATIVE); Resp Syncytial Virus, PCR NEGATIVE (NEGATIVE)
[2022-06-01 22:14] LABS: SARS-Cov-2 (COVID-19) PCR, MMC POSITIVE (NEGATIVE)
--- NOTE | 2022-06-02 00:59 | NUR ---
PHYSICIAN COMMUNICATION CONTACTED DR JOSEPH TO NOTIFY HIM THAT THE PATIENT'S BLOOD PRESSURE WAS 193/105 AND THERE WERE NO MEDICATIONS ORDERED TO HELP BRING THE BLOOD PRESSURE DOWN. DR JOSEPH ORDERED 10 MG IV HYDRALAZINE EVERY 6 HOURS NEEDED FOR SBO GREATER THAN 160.
[2022-06-02 05:15] LABS: BASOPHILS ABSOLUTE AUTO 0.01 K/mm3 (0.00-0.23); BASOPHILS PERCENT AUTO 0 % (0-2); EOSINOPHILS PERCENT AUTO 0 % (0-6); Hematocrit 40.9 % (33.0-51.0); Hemoglobin 12.9 g/dL (11.5-16.0); IMMATURE GRAN ABSOLUTE AUTO 0.04 K/mm3 (0.00-0.10); IMMATURE GRAN PERCENT AUTO 1 % (0-1); LYMPHOCYTES ABSOLUTE AUTO 0.39 K/mm3 (0.84-5.20); LYMPHOCYTES PERCENT AUTO 6 % (21-46); MONOCYTES ABSOLUTE AUTO 0.05 K/mm3 (0.16-1.47); MONOCYTES PERCENT AUTO 1 % (4-13); Mean Corpuscular HGB 29.5 pg (26.0-34.0); Mean Corpuscular HGB Conc 31.5 g/dL (31.5-36.5); Mean Corpuscular Volume 93 fL (80-100); Mean Platelet Volume 10.4 fL (9.1-12.4); NEUTROPHILS ABSOLUTE AUTO 5.77 K/mm3 (1.96-9.15); NEUTROPHILS PERCENT AUTO 92 % (41-73); Platelet Count 130 K/mm3 (150-400); RDW Coefficient Variation 12.8 % (11.7-14.2); RDW Standard Deviation 43.9 fL (35.1-46.3); Red Blood Cell Count 4.38 M/mm3 (3.80-5.20); White Blood Cell Count 6.26 K/mm3 (4.00-11.30)
[2022-06-02 05:35] LABS: Albumin, Blood 3.5 g/dL (3.4-5.0); Albumin/Globulin Ratio 1.1 (0.8-1.8); Bilirubin, Total 0.6 mg/dL (0.1-1.0); Bun/Creatinine Ratio 27.2 (12.0-20.0); Calcium, Blood 9.4 mg/dL (8.5-10.1); Creatinine, Blood 0.74 mg/dL (0.40-1.00); Globulin, Blood 3.1 g/dL (2.2-4.0); Potassium, Blood 3.7 mmol/L (3.5-5.5); Total Protein, Blood 6.6 g/dL (6.4-8.2)
--- NOTE | 2022-06-02 06:33 | NUR ---
SHIFT SUMMARY PATIENT ALERT AND ORIENTED X3. MEDICATED PER EMAR FOR BLOOD PRESSURE AND NAUSEA. CALL LIGHT WITHIN REACH. REPORT GIVEN TO ONCOMING RN.
--- NOTE | 2022-06-02 08:00 | NUR ---
pt laying in bed awake a/ox2, very quiet but does answer questions, son in room, came out of room to speak to staff, seems a bit aggitated and repeating himself, was more calm when this nurse went to see pt, pt denies pain, lungs are clear, a bit course in bases, currently on 1 liter 02 per monitor, see strip, 1+ edema noted to b/l ankles, ppp faint, cap refill <3sec, vs stable, afebrile, iv site is clear and patent, to right hand, btx4, abd flat soft reports tenderness, briefed, son reports she is ambulatory with a walker, mariely frias, call light in reach.
--- NOTE | 2022-06-02 14:36 | NUR ---
Pt voided large amount that went through, bed bath given, linen changed, got pt up to chair with two person assist, no complaints, ate 100% of lunch. call light in reach.
--- NOTE | 2022-06-02 18:05 | NUR ---
pt a bit confused, got herself back to bed without calling after PT worked with her, tangled herself up in her lines, asked her to call next time, she said what in the world for, currently on 2 liters 02 to maintain sats. no further changes this shift. call light in reach.
[2022-06-03 05:45] LABS: Albumin/Globulin Ratio 1.1 (0.8-1.8); Bilirubin, Total 0.3 mg/dL (0.1-1.0); Bun/Creatinine Ratio 36.5 (12.0-20.0); Calcium, Blood 8.7 mg/dL (8.5-10.1); Creatinine, Blood 1.15 mg/dL (0.40-1.00); Globulin, Blood 2.8 g/dL (2.2-4.0); Potassium, Blood 4.5 mmol/L (3.5-5.5); Total Protein, Blood 5.8 g/dL (6.4-8.2)
--- NOTE | 2022-06-03 06:11 | NUR ---
SHIFT SUMMARY PATIENT ALERT AND ORIENTED X3. HAD NO COMPLAINTS OF PAIN OR SHORTNESS OF BREATH. NO ACUTE ISSUES NOTED OVERNIGHT. CURRENTLY ON 1 LITER O2 VIA NC. CALL LIGHT WITHIN REACH. REPORT GIVEN TO ONCOMING RN.
[2022-06-03 06:16] LABS: BASOPHILS ABSOLUTE AUTO 0.02 K/mm3 (0.00-0.23); BASOPHILS PERCENT AUTO 0 % (0-2); EOSINOPHILS ABSOLUTE AUTO 0.01 K/mm3 (0.00-0.68); EOSINOPHILS PERCENT AUTO 0 % (0-6); Hematocrit 37.7 % (33.0-51.0); Hemoglobin 11.6 g/dL (11.5-16.0); IMMATURE GRAN ABSOLUTE AUTO 0.02 K/mm3 (0.00-0.10); IMMATURE GRAN PERCENT AUTO 0 % (0-1); LYMPHOCYTES PERCENT AUTO 11 % (21-46); MONOCYTES ABSOLUTE AUTO 1.04 K/mm3 (0.16-1.47); MONOCYTES PERCENT AUTO 14 % (4-13); Mean Corpuscular HGB 29.9 pg (26.0-34.0); Mean Corpuscular HGB Conc 30.8 g/dL (31.5-36.5); Mean Corpuscular Volume 97 fL (80-100); Mean Platelet Volume 9.7 fL (9.1-12.4); NEUTROPHILS ABSOLUTE AUTO 5.72 K/mm3 (1.96-9.15); NEUTROPHILS PERCENT AUTO 75 % (41-73); Platelet Count 135 K/mm3 (150-400); RDW Coefficient Variation 13.1 % (11.7-14.2); RDW Standard Deviation 47.1 fL (35.1-46.3); Red Blood Cell Count 3.88 M/mm3 (3.80-5.20); White Blood Cell Count 7.61 K/mm3 (4.00-11.30)
[2022-06-03 15:18] LABS: Albumin, Blood 3.4 g/dL (3.4-5.0); Anion Gap 7 mmol/L (6-16); Blood Urea Nitrogen 45 mg/dL (8-24); Bun/Creatinine Ratio 41.3 (12.0-20.0); CO2, Blood 32 mmol/L (21-32); Calcium, Blood 8.9 mg/dL (8.5-10.1); Chloride, Blood 97 mmol/L (98-108); Creatinine, Blood 1.09 mg/dL (0.40-1.00); Glomerular Filtration Rate 51 (60-); Glucose, Blood 158 mg/dL (70-99); Phosphorus, Blood 4.1 mg/dL (2.5-4.9); Potassium, Blood 4.8 mmol/L (3.5-5.5); Sodium, Blood 136 mmol/L (136-145)
--- NOTE | 2022-06-03 18:19 | NUR ---
SHIFT SUMMARY PATIENT ALERT AND ORIENTED. WEAK, SBA WITH FWW TO COMMODE, CHAIR, AND BED. LS DIM THROUGHOUT. CHOKED AND VOMITED ON DRY CHICKEN AT LUNCH, CHANGED DIET TO MECH SOFT. SPEECH EVAL ORDERED FOR AM. WEANED O2 TO 1L NC AT REST, NEEDS MORE WITH EXERTION. FEELS CONSTIPATED BUT REPORTS BM THIS SHIFT.
--- NOTE | 2022-06-04 04:47 | NUR ---
SHIFT SUMMARY A/O 2-3, FORGETFUL BUT EASILY REDIRECTED. C/O HEADACHE AND TOOTH PAIN THIS SHIFT, MEDICATED PER EMAR. CURRENTLY ON 2L VIA NC, CONT. BIOX IN PLACE. SBA WITH FWW TO BSC. VSS, NO ACUTE CHANGES AT THIS TIME. BED IN LOWEST POSITION WITH CALL LIGHT IN REACH. WILL CONTINUE TO MONITOR AND REPORT TO ONCOMING RN.
[2022-06-04 05:31] LABS: BASOPHILS ABSOLUTE AUTO 0.01 K/mm3 (0.00-0.23); BASOPHILS PERCENT AUTO 0 % (0-2); EOSINOPHILS PERCENT AUTO 0 % (0-6); Hematocrit 35.5 % (33.0-51.0); Hemoglobin 11.2 g/dL (11.5-16.0); IMMATURE GRAN ABSOLUTE AUTO 0.04 K/mm3 (0.00-0.10); IMMATURE GRAN PERCENT AUTO 1 % (0-1); LYMPHOCYTES ABSOLUTE AUTO 0.71 K/mm3 (0.84-5.20); LYMPHOCYTES PERCENT AUTO 9 % (21-46); MONOCYTES ABSOLUTE AUTO 0.89 K/mm3 (0.16-1.47); MONOCYTES PERCENT AUTO 11 % (4-13); Mean Corpuscular HGB 30.1 pg (26.0-34.0); Mean Corpuscular HGB Conc 31.5 g/dL (31.5-36.5); Mean Corpuscular Volume 95 fL (80-100); Mean Platelet Volume 9.9 fL (9.1-12.4); NEUTROPHILS ABSOLUTE AUTO 6.21 K/mm3 (1.96-9.15); NEUTROPHILS PERCENT AUTO 79 % (41-73); Platelet Count 128 K/mm3 (150-400); RDW Coefficient Variation 12.8 % (11.7-14.2); RDW Standard Deviation 44.9 fL (35.1-46.3); Red Blood Cell Count 3.72 M/mm3 (3.80-5.20); White Blood Cell Count 7.86 K/mm3 (4.00-11.30)
[2022-06-04 05:52] LABS: Albumin, Blood 3.2 g/dL (3.4-5.0); Anion Gap 4 mmol/L (6-16); Blood Urea Nitrogen 38 mg/dL (8-24); Bun/Creatinine Ratio 42.5 (12.0-20.0); CO2, Blood 35 mmol/L (21-32); Calcium, Blood 8.9 mg/dL (8.5-10.1); Chloride, Blood 101 mmol/L (98-108); Creatinine, Blood 0.89 mg/dL (0.40-1.00); Glomerular Filtration Rate 66 (60-); Glucose, Blood 107 mg/dL (70-99); Magnesium, Blood 2.5 mg/dL (1.6-2.4); Phosphorus, Blood 3.4 mg/dL (2.5-4.9); Potassium, Blood 4.2 mmol/L (3.5-5.5); Sodium, Blood 140 mmol/L (136-145)
[2022-06-04] MEDS ORDERED: FURO40 PO (12:36)
[2022-06-04] MEDS ORDERED: DEXA2 PO (12:37)
--- NOTE | 2022-06-04 15:22 | NUR ---
DISCHARGE SUMMARY PATIENT ALERT AND ORIENTED AND SOMETIMES FORGETFUL. MAINTAINING O2 SATS ON 1L NC. CLEARED HOME O2 EVAL FOR 1L NC AT HOME. SBA TO TRANSFER FROM BED TO CHAIR TO COMMODE. INC OF URINE. ATTENDS CHANGED PRN. LUIS RESTARTED THIS SHIFT. DICHARGE ORDERS OBTAINED. DISCHARGE EDUCATION GIVEN ON NEW MEDS, HOME O2, COVID QUARANTINE, AND FOLLOW UP APPTS. IV DC'D WNL. PATIENT LEFT UNIT AT 1445 VIA WHEELCHAIR WITH SON FOR HOME.
[2022-06-05 13:08] LABS: A/G RATIO 1.3 (0.7-1.7); ALBUMIN 3.4 g/dL (2.9-4.4); ALPHA-1-GLOBULIN 0.3 g/dL (0.0-0.4); ALPHA-2-GLOBULIN 0.8 g/dL (0.4-1.0); GAMMA GLOBULIN 0.7 g/dL (0.4-1.8); GLOBULIN, TOTAL 2.7 g/dL (2.2-3.9); M-SPIKE Not Observed g/dL (Not Observed); PROTEIN, TOTAL, SERUM 6.1 g/dL (6.0-8.5)
[2022-06-06 16:10] LABS: A/G RATIO 1.4 (0.7-1.7); ALBUMIN 3.6 g/dL (2.9-4.4); ALPHA-1-GLOBULIN 0.3 g/dL (0.0-0.4); ALPHA-2-GLOBULIN 0.7 g/dL (0.4-1.0); GAMMA GLOBULIN 0.6 g/dL (0.4-1.8); GLOBULIN, TOTAL 2.6 g/dL (2.2-3.9); IMMUNOGLOBULIN A, QN, SERUM 200 mg/dL (64-422); IMMUNOGLOBULIN G, QN, SERUM 470 mg/dL (586-1602); IMMUNOGLOBULIN M, QN, SERUM 82 mg/dL (26-217); M-SPIKE Not Observed g/dL (Not Observed); PROTEIN, TOTAL, SERUM 6.2 g/dL (6.0-8.5)
== END 2022-06-04 14:55 | disposition home health service (06) | DRG 177 ==
LOC: ER 16:08 → MEDS 23:12
PROVIDERS: Family Medicine; Internal Medicine; Student in an Organized Health Care Education/Training Program; ADMIT Internal Medicine
PROC: XW033E5 Introduction of Remdesivir Anti-infective into Peripheral Vein, Percutaneous Approach, New Technology Group 5 (ICD-10-PCS; principal; 2022-06-01)
PROC: 3E0333Z Introduction of Anti-inflammatory into Peripheral Vein, Percutaneous Approach (ICD-10-PCS; 2022-06-01)
DX: U07.1 COVID-19 (principal); J12.82 Pneumonia due to coronavirus disease 2019; J96.01 Acute respiratory failure with hypoxia; I50.22 Chronic systolic (congestive) heart failure; N17.9 Acute kidney failure, unspecified; M81.0 Age-related osteoporosis without current pathological fracture; E78.5 Hyperlipidemia, unspecified; I48.91 Unspecified atrial fibrillation; I25.10 Atherosclerotic heart disease of native coronary artery without angina pectoris; F03.90 Unspecified dementia, unspecified severity, without behavioral disturbance, psychotic disturbance, mood disturbance, and anxiety; M41.9 Scoliosis, unspecified; F41.1 Generalized anxiety disorder; I11.0 Hypertensive heart disease with heart failure; K21.9 Gastro-esophageal reflux disease without esophagitis; D69.6 Thrombocytopenia, unspecified; I16.0 Hypertensive urgency; Z96.652 Presence of left artificial knee joint; I25.2 Old myocardial infarction; Z85.3 Personal history of malignant neoplasm of breast; Z90.49 Acquired absence of other specified parts of digestive tract; Z90.10 Acquired absence of unspecified breast and nipple; Z88.8 Allergy status to other drugs, medicaments and biological substances; Z79.899 Other long term (current) drug therapy
CPT/HCPCS: 0241U; 36415; 71045; 74177; 80053; 80069; 81001; 82784; 83521; 83690; 83735; 83880; 84155; 84165; 84484; 85025; 86334; 92610; 93005; 93010; 94660; 94664; 94762; 96374-59; 97110; 97116; 97162; 97166; 97530; 97535; 99285-25; A9270; J0248; J0360; J1100; J1650; J1940; J2405; J7050; P9612; Q9967

== ENCOUNTER 2022-06-15 17:05 | Inpatient (IN) | payer OTHER, MEDICARE ==
[~2022-06-15] VITALS: Ht 157.5 cm; Wt 70.3 kg
[~2022-06-15 17:05] MED LIST changes: +DEXA2 PO; +FURO40 PO; +SPIR25 PO
[2022-06-15 18:01] LABS: BASOPHILS ABSOLUTE AUTO 0.02 K/mm3 (0.00-0.23); BASOPHILS PERCENT AUTO 0 % (0-2); EOSINOPHILS ABSOLUTE AUTO 0.02 K/mm3 (0.00-0.68); EOSINOPHILS PERCENT AUTO 0 % (0-6); Hemoglobin 12.4 g/dL (11.5-16.0); IMMATURE GRAN ABSOLUTE AUTO 0.11 K/mm3 (0.00-0.10); IMMATURE GRAN PERCENT AUTO 1 % (0-1); LYMPHOCYTES ABSOLUTE AUTO 0.92 K/mm3 (0.84-5.20); LYMPHOCYTES PERCENT AUTO 6 % (21-46); MONOCYTES ABSOLUTE AUTO 1.26 K/mm3 (0.16-1.47); MONOCYTES PERCENT AUTO 9 % (4-13); Mean Corpuscular HGB 29.5 pg (26.0-34.0); Mean Corpuscular HGB Conc 31.8 g/dL (31.5-36.5); Mean Corpuscular Volume 93 fL (80-100); Mean Platelet Volume 9.8 fL (9.1-12.4); NEUTROPHILS ABSOLUTE AUTO 12.21 K/mm3 (1.96-9.15); NEUTROPHILS PERCENT AUTO 84 % (41-73); Platelet Count 138 K/mm3 (150-400); RDW Standard Deviation 44.2 fL (35.1-46.3); White Blood Cell Count 14.54 K/mm3 (4.00-11.30)
[2022-06-15 18:15] LABS: Albumin, Blood 3.5 g/dL (3.4-5.0); Albumin/Globulin Ratio 1.2 (0.8-1.8); Bilirubin, Total 0.5 mg/dL (0.1-1.0); Bun/Creatinine Ratio 44.1 (12.0-20.0); Calcium, Blood 9.9 mg/dL (8.5-10.1); Creatinine, Blood 1.18 mg/dL (0.40-1.00); Globulin, Blood 2.9 g/dL (2.2-4.0); Potassium, Blood 3.8 mmol/L (3.5-5.5); Total Protein, Blood 6.4 g/dL (6.4-8.2)
[2022-06-15 20:34] LABS: Anti-Xa UFH, PHA Monitoring <0.10 IU/mL; International Normalized Ratio 1.04; Prothrombin Time Results 10.9 Sec (9.7-11.5)
[2022-06-15 22:20] LABS: Creatine Kinase MB 59.1 ng/mL (0.0-3.6); Creatine Kinase MB Index 7.5 (0.0-4.0)
--- NOTE | 2022-06-16 | NUR ---
ADMISSION REPORT RECIEVED FROM ER NURSE. PATIENT ARRIVED TO PCU, SLID OVER TO PCU BED WITH ASSISTANCE OF STAFF. VSS, PATIENT ON RA WITH O2 SAT >90%. DENIES CHEST PAIN OR SOB. BRUISING UNDER LEFT BREAST, ON LEFT HIP AND LEFT LEG FROM GLF PRIOR TO COMING TO ER. PATIENT REPORTS "DISCOMFORT" WHERE THE BRUISE IS LOCATED ON THE LEFT SIDE OF HER CHEST. ATTENDS IN PLACE. PATIENT ORIENTED TO ROOM AND CALL LIGHT SYSTEM. BED ALARM IN PLACE FOR SAFETY.
[2022-06-16 00:28] LABS: Source, Urine Clean Catch
[2022-06-16 00:31] LABS: Bilirubin, Urine Neg (Neg); Blood, Urine 2+ (Neg); Glucose Qualitative, Urine Neg (Neg); Ketones, Urine Neg (Neg); Leukocyte Esterase, Urine Neg (Neg); Nitrite, Urine Neg (Neg); Protein, Urine 2+ (Neg); Specific Gravity, Urine 1.015 (1.003-1.022); Urobilinogen, Urine NORM (Normal)
[2022-06-16 00:41] LABS: Appearance, Urine Clear (Clear); Color, Urine Yellow (P-Yellow)
[2022-06-16 00:43] LABS: Amorphous Light (0-Heavy); Bacteria Rare /hpf; Squamous Epithelial Cells Few /hpf (Few); White Blood Cells, Urine 0-2 /hpf (0-5)
[2022-06-16 04:10] LABS: BASOPHILS ABSOLUTE AUTO 0.01 K/mm3 (0.00-0.23); BASOPHILS PERCENT AUTO 0 % (0-2); EOSINOPHILS ABSOLUTE AUTO 0.04 K/mm3 (0.00-0.68); EOSINOPHILS PERCENT AUTO 0 % (0-6); Hematocrit 36.6 % (33.0-51.0); Hemoglobin 11.5 g/dL (11.5-16.0); IMMATURE GRAN ABSOLUTE AUTO 0.03 K/mm3 (0.00-0.10); IMMATURE GRAN PERCENT AUTO 0 % (0-1); LYMPHOCYTES ABSOLUTE AUTO 0.59 K/mm3 (0.84-5.20); LYMPHOCYTES PERCENT AUTO 6 % (21-46); MONOCYTES ABSOLUTE AUTO 0.81 K/mm3 (0.16-1.47); MONOCYTES PERCENT AUTO 9 % (4-13); Mean Corpuscular HGB 29.3 pg (26.0-34.0); Mean Corpuscular HGB Conc 31.4 g/dL (31.5-36.5); Mean Corpuscular Volume 93 fL (80-100); Mean Platelet Volume 9.5 fL (9.1-12.4); NEUTROPHILS ABSOLUTE AUTO 7.78 K/mm3 (1.96-9.15); NEUTROPHILS PERCENT AUTO 84 % (41-73); Platelet Count 121 K/mm3 (150-400); RDW Coefficient Variation 13.1 % (11.7-14.2); Red Blood Cell Count 3.93 M/mm3 (3.80-5.20); White Blood Cell Count 9.26 K/mm3 (4.00-11.30)
[2022-06-16 04:30] LABS: Anion Gap 4 mmol/L (6-16); Blood Urea Nitrogen 41 mg/dL (8-24); Bun/Creatinine Ratio 42.6 (12.0-20.0); CHOL/HDL RATIO 2.1; CO2, Blood 32 mmol/L (21-32); Calcium, Blood 9.6 mg/dL (8.5-10.1); Chloride, Blood 105 mmol/L (98-108); Cholesterol 131 mg/dL (50-200); Creatinine, Blood 0.96 mg/dL (0.40-1.00); Glomerular Filtration Rate 60 (60-); Glucose, Blood 103 mg/dL (70-99); HDL Cholesterol 63 mg/dL (>39); LDL/HDL RATIO 0.9; Low Density Lipoprotein Chol 57 mg/dL (0-110); Potassium, Blood 3.6 mmol/L (3.5-5.5); Sodium, Blood 141 mmol/L (136-145); Triglycerides 56 mg/dL (30-160); Very Low Density Lipoprot Chol 11 mg/dL (6-32)
--- NOTE | 2022-06-16 06:35 | NUR ---
SHIFT SUMMARY PATIENT ALERT, ORIENTED x3-4, FORGETFUL AT TIMES BUT ANSWERS ALL QUESTIONS APPROPRIATELY. VSS, PATIENT REMAINS ON RA T/O NIGHT WITH O2 SAT >90%. DENIES CHEST PAIN BUT STATES "I'M HAVING DISCOMFORT WHERE MY BRUISE IS". MEDICATED WITH TYLENOL AND PATIENT REPORTED RELIEF FROM PAIN. ATTEMPTED TO USE BEDPAN THIS SHIFT AND WAS UNSUCCESSFUL, BLADDER SCAN DONE, <350 IN BLADDER AT 0600, ATTENDS IN PLACE. POWERGLIDE PLACED THIS SHIFT, HEPARIN INFUSING. NO OTHER SIGNIFICANT CHANGES THIS SHIFT, BED ALARM ON FOR SAFETY, CALL LIGHT IN REACH. WILL REPORT TO DAY SHIFT RN.
--- NOTE | 2022-06-16 07:00 | NUR ---
ASSUME CARE: I have assumed care of this patient. She awakens easily, heparin currently runnat at 12 units.
[2022-06-16] MEDS ORDERED: SIMETHICONE125 MG PO (08:20)
[2022-06-16 11:32] LABS: SARS-Cov-2 (COVID-19) PCR, MMC NEGATIVE (NEGATIVE)
[2022-06-16 11:39] LABS: Creatine Kinase MB 126.8 ng/mL (0.0-3.6); Creatine Kinase MB Index 8.8 (0.0-4.0)
--- NOTE | 2022-06-16 18:32 | NUR ---
SHIFT SUMMARY: NEURO: pt A/O x4, however forgetful at times. She is ambulatory with walker, gaitbelt, and 1-2 person assist. PRN tylenol given once today for pain. CARDIAC: afib on monitor. BP stable. Peripheral pulses intact. RESPIRATORY: clear/dim on RA GI/: up to bedside commode several times today. Multiple BMs today. SKIN: diffuse bruising noted over left thorax. Pt was assisted with turns, however she prefers to stay on her left side as she notes it helps her pain. PSYCH/SOCIAL: pt's son at bedside for much of the day and demanding of staff at times.
--- NOTE | 2022-06-17 01:46 | NUR ---
Patient is alert and oriented. Has a hx of dementia. She has been appropriate and bed alarm is on for safety. Monitor shows Afib rate 80-110. Pt is up to BSC to void, incontinent x1. No stools this shift. Pt is on heparin gtt, continues at 12u/kg/hr, redraw labs at 0500. Tylenol given for left sided pain from fall. Pt did receive a bed bath this donna by the FOUNDATION RELATIONS DIRECTOR. Report to Traci FARAH who is assuming care.
[2022-06-17 05:41] LABS: BASOPHILS ABSOLUTE AUTO 0.01 K/mm3 (0.00-0.23); BASOPHILS PERCENT AUTO 0 % (0-2); EOSINOPHILS ABSOLUTE AUTO 0.04 K/mm3 (0.00-0.68); EOSINOPHILS PERCENT AUTO 0 % (0-6); Hematocrit 35.5 % (33.0-51.0); Hemoglobin 11.3 g/dL (11.5-16.0); IMMATURE GRAN ABSOLUTE AUTO 0.05 K/mm3 (0.00-0.10); IMMATURE GRAN PERCENT AUTO 1 % (0-1); LYMPHOCYTES ABSOLUTE AUTO 0.71 K/mm3 (0.84-5.20); LYMPHOCYTES PERCENT AUTO 7 % (21-46); MONOCYTES ABSOLUTE AUTO 1.06 K/mm3 (0.16-1.47); MONOCYTES PERCENT AUTO 10 % (4-13); Mean Corpuscular HGB 29.9 pg (26.0-34.0); Mean Corpuscular HGB Conc 31.8 g/dL (31.5-36.5); Mean Corpuscular Volume 94 fL (80-100); Mean Platelet Volume 9.8 fL (9.1-12.4); NEUTROPHILS PERCENT AUTO 83 % (41-73); Platelet Count 120 K/mm3 (150-400); RDW Coefficient Variation 13.3 % (11.7-14.2); RDW Standard Deviation 45.4 fL (35.1-46.3); Red Blood Cell Count 3.78 M/mm3 (3.80-5.20); White Blood Cell Count 10.97 K/mm3 (4.00-11.30)
[2022-06-17 06:06] LABS: Albumin, Blood 3.2 g/dL (3.4-5.0); Albumin/Globulin Ratio 1.1 (0.8-1.8); Bilirubin, Total 0.5 mg/dL (0.1-1.0); Bun/Creatinine Ratio 41.2 (12.0-20.0); Calcium, Blood 9.5 mg/dL (8.5-10.1); Creatinine, Blood 0.8 mg/dL (0.40-1.00); Globulin, Blood 2.8 g/dL (2.2-4.0); Magnesium, Blood 2.3 mg/dL (1.6-2.4)
--- NOTE | 2022-06-17 06:34 | NUR ---
ASSUMPTION OF CARE/SHIFT SUMMARY ASSUMED CARE OF PATIENT AT 0200. THIS RN AGREES WITH PREVIOUS RNs ASSESSMENT. PATIENT ALERT, ANSWERS ORIENTATION QUESTIONS APPROPRIATELY BUT IS FORGETFUL AT TIMES AND WILL REPEAT HERSELF IN CONVERSATION. VSS, PATIENT ON 1L NC WITH O2 SAT >90%. DENIES CHEST PAIN OR SHORTNESS OF BREATH. PATIENT HAS SLEPT WELL THIS SHIFT. PATIENT ABLE TO USE BEDSIDE COMMODE TO VOID. NO SIGNIFICANT CHANGES THIS SHIFT, WILL REPORT TO DAY SHIFT RN.
--- NOTE | 2022-06-17 17:48 | NUR ---
SHIFT SUMMARY PT IS ALERT AND ORIENTED X 4 BUT FORGETFUL AT TIMES. SHE ANSWERS QUESTIONS APPROPRIATELY AND IS ABLE TO MAKE HER NEEDS KNOWN. BP STABLE, HR HAS RANGED AFIB 80'S-110 PER TELE MONITORING. PT WAS ON 1L VIA NC AT START OF SHIFT BUT DENIED FEELING SHORT OF BREATH, SPO2 MAINTAINED >95% VIA ROOM AIR SO 1L O2 REMOVED. SHE HAS DENIED CHEST PAIN/PRESSURE T/O SHIFT BUT REPORTED BACK PAIN AND PAIN NEAR BRUISE ON LEFT BREAST THAT WAS RESOLVED W/ TYLENOL. SHE HAS DENIED FEELINGS OF NAUSEA. SHE HAS BEEN A 1 PERSON SBA TO BEDSIDE COMMODE W/ NO EPISODES OF INCONTINENCE. HEPARIN DRIP WAS D/C'D THIS AM PER ORDERS, PHARMACY MADE AWARE. POWERGLIDE IN RUE IS SALINE LOCKED. HER SON WAS AT BEDSIDE FOR MAJORITY OF SHIFT. PHYSICAL THERAPY AND OCCUPATIONAL THERAPY EVALUATED PT TODAY. SHE WAS ABLE TO SIT IN CHAIR FOR HER MEALS. NO ACUTE CHANGES NOTED. CALL LIGHT IS IN REACH.
[2022-06-18 04:45] LABS: BASOPHILS ABSOLUTE AUTO 0.01 K/mm3 (0.00-0.23); BASOPHILS PERCENT AUTO 0 % (0-2); EOSINOPHILS ABSOLUTE AUTO 0.07 K/mm3 (0.00-0.68); EOSINOPHILS PERCENT AUTO 1 % (0-6); Hematocrit 36.3 % (33.0-51.0); Hemoglobin 11.1 g/dL (11.5-16.0); IMMATURE GRAN ABSOLUTE AUTO 0.03 K/mm3 (0.00-0.10); IMMATURE GRAN PERCENT AUTO 0 % (0-1); LYMPHOCYTES ABSOLUTE AUTO 0.88 K/mm3 (0.84-5.20); LYMPHOCYTES PERCENT AUTO 9 % (21-46); MONOCYTES ABSOLUTE AUTO 0.98 K/mm3 (0.16-1.47); MONOCYTES PERCENT AUTO 10 % (4-13); Mean Corpuscular HGB 29.4 pg (26.0-34.0); Mean Corpuscular HGB Conc 30.6 g/dL (31.5-36.5); Mean Corpuscular Volume 96 fL (80-100); Mean Platelet Volume 10.2 fL (9.1-12.4); NEUTROPHILS ABSOLUTE AUTO 7.49 K/mm3 (1.96-9.15); NEUTROPHILS PERCENT AUTO 79 % (41-73); Platelet Count 128 K/mm3 (150-400); RDW Coefficient Variation 13.2 % (11.7-14.2); RDW Standard Deviation 47.1 fL (35.1-46.3); Red Blood Cell Count 3.78 M/mm3 (3.80-5.20); White Blood Cell Count 9.46 K/mm3 (4.00-11.30)
[2022-06-18 05:05] LABS: Albumin, Blood 3.1 g/dL (3.4-5.0); Bilirubin, Total 0.3 mg/dL (0.1-1.0); Bun/Creatinine Ratio 39.9 (12.0-20.0); Calcium, Blood 9.8 mg/dL (8.5-10.1); Creatinine, Blood 0.9 mg/dL (0.40-1.00); Globulin, Blood 3.1 g/dL (2.2-4.0); Magnesium, Blood 2.3 mg/dL (1.6-2.4); Potassium, Blood 5.1 mmol/L (3.5-5.5); Total Protein, Blood 6.2 g/dL (6.4-8.2)
--- NOTE | 2022-06-18 05:20 | NUR ---
SHIFT SUMMARY A/OX3, FORGETFUL. DENIES CHEST PAIN/PRESSURE. TELE AFIB 100-120. C/O PAIN TO BACK AND L. BREAST D/T GLF AT HOME PRIOR TO ADMISSION, MEDICATED PER EMAR. 1P ASSIST WITH FWW. VSS, NO ACUTE CHANGES AT THIS TIME. BED IN LOWEST POSITION WITH CALL LIGHT IN REACH. WILL CONTINUE TO MONITOR AND REPORT TO ONCOMING RN.
[2022-06-18 11:37] LABS: Creatine Kinase MB 6.4 ng/mL (0.0-3.6); Creatine Kinase MB Index 2.8 (0.0-4.0)
--- NOTE | 2022-06-19 06:21 | NUR ---
SHIFT SUMMARY ASSUMED CARE OF PT AT 1900. PT IS A/OX4. HEART SOUNDS IRREGULAR, TELE SHOWS AFIB. LUNG SOUNDS CLEAR. PT C/O CP BUT SAID IT WAS A DULL ACHY PAIN FROM BRUSING. PT HAS BRUISING ON HER BCAK, CHEST AND SCATTERED T/O IN VARIES STAGES OF HEALING. PT DOESNT KNOW HOW SHE GOT BRUISING ON HER BACK. PT WAS A 1P ASSIST TO BSC, FREQUENT URINATION. PT OTHER COMPLAINTS.
--- NOTE | 2022-06-19 06:49 | NUR ---
FAMILY ENCOUNTER PT SON WAS AT PT DOOR AT 0635 THIS AM. PT SON IS AGITATED AND REPEAING OVER AND OVER THAT HE NEEDS TO EITHER SEE THE DOCTOR OR HAVE THE DOCTOR CALL HIM TODAY ABOUT THE STATUS OF THE PT. HE SAID " I DONT WANT TO HEAR IT FROM THE NURSES, THE RNS, YOU; I WANT TO HEAR IT FROM THE DOCTOR". PT ALSO THREATENED TO GO TO PT [facility] IF HE DOES NOT GET ONE OF THOSE FORMS OF COMMUNICATION TODAY. PT IS ALSO VERY UPSET THAT HIS PHONE NUMBER WAS EARASED OFF OF THE BOARD AND THINKS THAT IT WAS DISRESPECTFUL AND THAT IT WAS THE NURSES GETTING BACK AT HIM BECAUSE HE SAID "ONLY THE NURSES CAN TOUCH THE BOARDS". PT WAS CORRECTED AND REASSURED THAT IT WAS PROBABLY AN ACCIDENT AND THE HOSPITAL ALSO HAS HIS NUMBER ON FILE. PT TONE CHANGED BY THE END OF THE CONVERSATION AND RETURNED TO SIT IN PT ROOM WHILE SHE SLEEPS.
[2022-06-19 09:57] LABS: BASOPHILS ABSOLUTE AUTO 0.01 K/mm3 (0.00-0.23); BASOPHILS PERCENT AUTO 0 % (0-2); EOSINOPHILS ABSOLUTE AUTO 0.06 K/mm3 (0.00-0.68); EOSINOPHILS PERCENT AUTO 1 % (0-6); Hematocrit 35.1 % (33.0-51.0); Hemoglobin 11.1 g/dL (11.5-16.0); IMMATURE GRAN ABSOLUTE AUTO 0.03 K/mm3 (0.00-0.10); IMMATURE GRAN PERCENT AUTO 0 % (0-1); LYMPHOCYTES ABSOLUTE AUTO 0.55 K/mm3 (0.84-5.20); LYMPHOCYTES PERCENT AUTO 8 % (21-46); MONOCYTES PERCENT AUTO 8 % (4-13); Mean Corpuscular HGB Conc 31.6 g/dL (31.5-36.5); Mean Corpuscular Volume 95 fL (80-100); NEUTROPHILS ABSOLUTE AUTO 5.86 K/mm3 (1.96-9.15); NEUTROPHILS PERCENT AUTO 83 % (41-73); Platelet Count 136 K/mm3 (150-400); RDW Coefficient Variation 13.2 % (11.7-14.2); RDW Standard Deviation 46.1 fL (35.1-46.3); White Blood Cell Count 7.11 K/mm3 (4.00-11.30)
[2022-06-19 10:11] LABS: Albumin, Blood 2.9 g/dL (3.4-5.0); Albumin/Globulin Ratio 0.8 (0.8-1.8); Bilirubin, Total 0.4 mg/dL (0.1-1.0); Bun/Creatinine Ratio 41.8 (12.0-20.0); Calcium, Blood 9.2 mg/dL (8.5-10.1); Creatinine, Blood 0.74 mg/dL (0.40-1.00); Globulin, Blood 3.5 g/dL (2.2-4.0); Magnesium, Blood 2.2 mg/dL (1.6-2.4); Phosphorus, Blood 2.7 mg/dL (2.5-4.9); Potassium, Blood 4.6 mmol/L (3.5-5.5); Total Protein, Blood 6.4 g/dL (6.4-8.2)
--- NOTE | 2022-06-19 15:43 | NUR ---
Pt sitting in chair upon intitial arrival. Pt does request to be transfered to bed during visit. Staff in to assist with this request. Pt's son Simon at bedside. Engaged in therapeutic discussion regarding code status. Educated on life sustaining treatments including risk factors and implications of CPR. Pt and son agreeable to complete POLST. Assisted with completing POLST. Pt's wishes are DNR, no intubation, but is agreeable with defibrilation and medication. Offered active listening as son discusses concerns. Validated concerns and answered questions. Spoke with Primary RN Areli and discussed case. Palliative Care will remain available.
--- NOTE | 2022-06-19 18:31 | NUR ---
SHIFT SUMMARY PT HAS BEEN HYPERTENSIVE TODAY AND HAS HAD MANY MEDICATION CHANGES TO HELP DECREASE HER HYPERTENSION. PT WAS GOING TO BE D/C'D HOME W/ H/H TODAY, BUT HER BP HAS NOT BEEN APPROPRIATE FOR D/C. WILL REEVALUATE TOMORROW. PALLITIVE CARE CAME DOWN AND DISCUSSED THE PT'S POLST WITH THE SON MIGUEL AND THE PT. THEY DECIDED TO MAKE HER LIMITED CODE W/ ONLY DEFIBRILLATION AND MEDICATIONS ALLOWED. THE SON HAD SOME CONCERNS ABOUT THE PT GETTING REST AT NIGHT AND A SIGN WAS PLACED ON THE DOOR TO MINIMIZE SLEEP INTURUPTIONS BETWEEN [id number]. CONTINUING MONITOR.
[2022-06-20 04:11] LABS: BASOPHILS ABSOLUTE AUTO 0.01 K/mm3 (0.00-0.23); BASOPHILS PERCENT AUTO 0 % (0-2); EOSINOPHILS ABSOLUTE AUTO 0.09 K/mm3 (0.00-0.68); EOSINOPHILS PERCENT AUTO 1 % (0-6); Hemoglobin 11.4 g/dL (11.5-16.0); IMMATURE GRAN ABSOLUTE AUTO 0.03 K/mm3 (0.00-0.10); IMMATURE GRAN PERCENT AUTO 1 % (0-1); LYMPHOCYTES ABSOLUTE AUTO 0.92 K/mm3 (0.84-5.20); LYMPHOCYTES PERCENT AUTO 14 % (21-46); MONOCYTES ABSOLUTE AUTO 0.73 K/mm3 (0.16-1.47); MONOCYTES PERCENT AUTO 11 % (4-13); Mean Corpuscular HGB 29.8 pg (26.0-34.0); Mean Corpuscular HGB Conc 31.7 g/dL (31.5-36.5); Mean Corpuscular Volume 94 fL (80-100); Mean Platelet Volume 9.7 fL (9.1-12.4); NEUTROPHILS ABSOLUTE AUTO 4.88 K/mm3 (1.96-9.15); NEUTROPHILS PERCENT AUTO 73 % (41-73); Platelet Count 149 K/mm3 (150-400); RDW Coefficient Variation 13.4 % (11.7-14.2); RDW Standard Deviation 45.6 fL (35.1-46.3); Red Blood Cell Count 3.83 M/mm3 (3.80-5.20); White Blood Cell Count 6.66 K/mm3 (4.00-11.30)
[2022-06-20 04:31] LABS: Albumin, Blood 2.9 g/dL (3.4-5.0); Albumin/Globulin Ratio 0.8 (0.8-1.8); Bilirubin, Total 0.5 mg/dL (0.1-1.0); Bun/Creatinine Ratio 42.7 (12.0-20.0); Calcium, Blood 9.3 mg/dL (8.5-10.1); Creatinine, Blood 0.77 mg/dL (0.40-1.00); Globulin, Blood 3.5 g/dL (2.2-4.0); Potassium, Blood 4.6 mmol/L (3.5-5.5); Total Protein, Blood 6.4 g/dL (6.4-8.2)
--- NOTE | 2022-06-20 06:27 | NUR ---
SHIFT SUMMARY ASSUMED CARE OF PT AT 1900. PT IS A/OX4. HEART SOUNDS REGULAR, LUNG SOUNDS CLEAR. PT SLEPT MOST OF THE NIGHT EXCEPT TO GO TO BATHROOM. PT IS A 1P SBA TO [facility] [place] WITH WALKER. BP STABLE. NO OTHER COMPLAINTS. SON VISITIED PT AFTER VISITING HOURS, WHEN THIS NURSE EXPLAINED THAT THIS IS AGAINST HOSPITAL POLICY, PT STATES "I DON'T CARE". SON DID LEAVE PT AFTER THIS NURSE EXPLAINED THAT THIS WILL NOT BE TOLERATED.
--- NOTE | 2022-06-20 10:48 | NUR ---
FAMILY MEMBER ENCOUNTER PT SON HAD MISSED SEEING THE DR HE HAD STEPPED OUT AND WAS FRUSTRATED THAT NO ONE KNEW ANYTHING AND HE WAS "TIRED OF PEOPLE DOING ONE THING BUT SAYING ANOTHER." THIS RN LISTENED TO HIS CONCERNS AND REASSURED HIM THE DR WOULD BE NOTIFIED HE WAS HERE NO. DR WAS NOTIFIED. SON BECAME AGITATED AND WANDERED THE HALLS ACCUSING STAFF OF HOLDING HIS MOTHER HOSTAGE. STENOTYPIST DISCUSSED CONCERNS WITH SON AND SECURITY WAS CALLED TO HELP MONITOR THE SITUATION. SON LEFT STATING HE WOULD BE BACK AT 1630 TO REMOVE HIS MOTHER "NO MATTER WHAT." DR APPEARED SHROTLY AFTER PT STORMED OUT AND SPOKE WITH SON. PT WILL REMAIN OVER NIGHT
--- NOTE | 2022-06-20 17:52 | NUR ---
SHIFT SUMMARY PT HAS BEEN RESTING IN BED AND TO THE CHAIR THROUGHOUT THE DAY. PT AMBULATED W/ FWW TO THE BATHROOM. PT HAS BEEN PLEASANT AND COOPERATIVE. SAW PT AND OT. DENIES CHEST PAIN AND SOB. SON HAS BEEN AGITATED WHEN IN VISITING THE PT BUT EXPLAINED DUE TO THE PT HIGH BP THAT THE PT NEEDS TO STAY ANOTHER NIGHT. BED IN LOWEST POSITION AND CALL LIGHT IN REACH
--- NOTE | 2022-06-21 05:52 | NUR ---
SHIFT SUMMARY ASSUMED CARE OF PT AT 1900. PT IS A/OX4. PT HAS A NEW COMPLAINT OF FEELING DIZZY. PT WAS UNSTEADY ON HER FEET DUE TO THIS AND HAD TO USE THE BEDPAN THE LAST COUPLE HOURS OF THE SHIFT. PT STATES ITS WORSE WHEN SHE GETS UP TO THE SIDE OF THE BED. PT THINKS MEDICATIONS ARE CORRELATED WITH THE DIZZINESS.
[2022-06-21] MEDS ORDERED: ASPI81CH PO (12:33)
[2022-06-21] MEDS ORDERED: CLOP75 PO (12:34)
--- NOTE | 2022-06-21 18:04 | NUR ---
DISCHARGE UPDATE DISCHARGE PACKET GONE OVER WITH PT AND PT SON AT 1735. PT DISCHARGED AT 1745 VIA WHEELCHAIR AND ON RA. PT ABLE TO TRANSFER SELF TO AND FROM WHEELCHAIR, TOLERATE WELL. DISCHARGE PACKET IN PT PERSONAL WALKER ALONG WITH PERSONAL BELONGINGS AND WITH SON DURING DISCHARGE.
[2022-06-23] MEDS ORDERED: CARVEDILOL12.5 MG PO (10:49)
[2022-06-23] MEDS ORDERED: FUROSEMIDE40 MG PO (10:51)
[2022-06-23] MEDS ORDERED: LOSARTAN POTAS100 M1 PO (10:52)
[2022-06-23] MEDS ORDERED: HYDROCODONE-AC1 EA18 PO (10:52)
[2022-06-23] MEDS ORDERED: SPIRONOLACTONE25 MG PO (10:53)
== END 2022-06-21 17:57 | disposition home or self-care (01) | DRG 280 ==
LOC: ER 17:05 → PCU 17:06
PROVIDERS: Emergency Medicine; Family Medicine; Hospitalist; Physician Assistant; Student in an Organized Health Care Education/Training Program; ADMIT Family Medicine
DX: I21.4 Non-ST elevation (NSTEMI) myocardial infarction (principal); J96.01 Acute respiratory failure with hypoxia; I50.22 Chronic systolic (congestive) heart failure; I48.21 Permanent atrial fibrillation; N17.9 Acute kidney failure, unspecified; Z20.822 Contact with and (suspected) exposure to COVID-19; I25.10 Atherosclerotic heart disease of native coronary artery without angina pectoris; D72.829 Elevated white blood cell count, unspecified; I16.0 Hypertensive urgency; S20.219A Contusion of unspecified front wall of thorax, initial encounter; I27.20 Pulmonary hypertension, unspecified; M81.0 Age-related osteoporosis without current pathological fracture; E66.3 Overweight; F41.9 Anxiety disorder, unspecified; D69.6 Thrombocytopenia, unspecified; I11.0 Hypertensive heart disease with heart failure; E78.5 Hyperlipidemia, unspecified; M19.90 Unspecified osteoarthritis, unspecified site; K58.9 Irritable bowel syndrome, unspecified; I95.9 Hypotension, unspecified; M54.9 Dorsalgia, unspecified; G89.29 Other chronic pain; M41.9 Scoliosis, unspecified; Z96.652 Presence of left artificial knee joint; Z96.643 Presence of artificial hip joint, bilateral; Z85.828 Personal history of other malignant neoplasm of skin; I25.2 Old myocardial infarction; Z90.49 Acquired absence of other specified parts of digestive tract; Z98.890 Other specified postprocedural states; Z87.891 Personal history of nicotine dependence; Z68.30 Body mass index [BMI] 30.0-30.9, adult; Z85.3 Personal history of malignant neoplasm of breast; Z86.16 Personal history of COVID-19; Z88.8 Allergy status to other drugs, medicaments and biological substances; Z79.899 Other long term (current) drug therapy; W01.198A Fall on same level from slipping, tripping and stumbling with subsequent striking against other object, initial encounter
CPT/HCPCS: 36415; 71045; 80048; 80053; 80061; 81001; 82550; 82553; 82947; 83690; 83735; 83880; 84100; 84145; 84484; 85025; 85520; 85610; 93005; 93010; 93306; 96365; 96366; 97110; 97116; 97161; 97166; 97530; 97535; 99285-25; A9270; C1751; J1644; U0004

== ENCOUNTER 2022-06-24 07:55 | Inpatient (IN) | payer MEDICARE, OTHER ==
[~2022-06-24] VITALS: Ht 160 cm; Wt 75.7 kg
[~2022-06-24 07:55] MED LIST changes: +CARVEDILOL12.5 MG PO; +CLOP75 PO; +FUROSEMIDE40 MG PO; +HYDROCODONE-AC1 EA18 PO; +LOSARTAN POTAS100 M1 PO; +SIMETHICONE125 MG PO; +SPIRONOLACTONE25 MG PO
[2022-06-24 10:04] LABS: BASOPHILS ABSOLUTE AUTO 0.01 K/mm3 (0.00-0.23); BASOPHILS PERCENT AUTO 0 % (0-2); EOSINOPHILS ABSOLUTE AUTO 0.01 K/mm3 (0.00-0.68); EOSINOPHILS PERCENT AUTO 0 % (0-6); Hematocrit 36.4 % (33.0-51.0); IMMATURE GRAN ABSOLUTE AUTO 0.06 K/mm3 (0.00-0.10); IMMATURE GRAN PERCENT AUTO 1 % (0-1); LYMPHOCYTES PERCENT AUTO 7 % (21-46); MONOCYTES ABSOLUTE AUTO 0.83 K/mm3 (0.16-1.47); MONOCYTES PERCENT AUTO 12 % (4-13); Mean Corpuscular HGB 29.9 pg (26.0-34.0); Mean Corpuscular HGB Conc 30.2 g/dL (31.5-36.5); Mean Corpuscular Volume 99 fL (80-100); Mean Platelet Volume 9.5 fL (9.1-12.4); NEUTROPHILS ABSOLUTE AUTO 5.44 K/mm3 (1.96-9.15); NEUTROPHILS PERCENT AUTO 80 % (41-73); Platelet Count 201 K/mm3 (150-400); RDW Coefficient Variation 13.3 % (11.7-14.2); RDW Standard Deviation 48.6 fL (35.1-46.3); Red Blood Cell Count 3.68 M/mm3 (3.80-5.20); White Blood Cell Count 6.85 K/mm3 (4.00-11.30)
[2022-06-24 11:13] LABS: Albumin/Globulin Ratio 0.9 (0.8-1.8); Bilirubin, Total 0.3 mg/dL (0.1-1.0); Creatinine, Blood 1.14 mg/dL (0.40-1.00); Globulin, Blood 3.4 g/dL (2.2-4.0); Potassium, Blood 5.2 mmol/L (3.5-5.5); Total Protein, Blood 6.4 g/dL (6.4-8.2)
--- NOTE | 2022-06-24 18:22 | NUR ---
SHIFT SUMMARY PT UP FROM ED TODAY. PT ALERT AND ORIENTED, INTERMITTENT CONFUSION AT TIMES, SLOW TO RESPOND. PT UP WITH PHYSICAL THERAPY USING GAIT BELT AND FWW. INTERMITTENT INCONTINENCE, ATTENDS IN PLACE. CALL LIGHT WITHIN REACH.
--- NOTE | 2022-06-25 05:55 | NUR ---
SHIFT SUMMARY: PATIENT IS A&O TO SELF FAMILY AND PLACE BUT DOES NOT KNOW HER BIRTHDAY OR TODAYS DATE. INC. OF URINE AT TIMES. HAD TWO TINY HARD PEBBNLES FOR A BM. DR IS CALLED [facility]. PATIENT MAONS VS USING CALL BERRIOS WHICH SHE IS REORIENTED TO OFTEN. NORCO WAS FOR REPORTED GENERALIZED PAIN WITH FAIR EFFECT. PATIENT CONTINUES TO MOAN WHEN PAIN IS RATED AT A 2/10.
[2022-06-25 05:56] LABS: BASOPHILS ABSOLUTE AUTO 0.01 K/mm3 (0.00-0.23); BASOPHILS PERCENT AUTO 0 % (0-2); EOSINOPHILS ABSOLUTE AUTO 0.03 K/mm3 (0.00-0.68); EOSINOPHILS PERCENT AUTO 1 % (0-6); Hematocrit 34.1 % (33.0-51.0); Hemoglobin 10.2 g/dL (11.5-16.0); IMMATURE GRAN ABSOLUTE AUTO 0.06 K/mm3 (0.00-0.10); IMMATURE GRAN PERCENT AUTO 1 % (0-1); LYMPHOCYTES ABSOLUTE AUTO 0.59 K/mm3 (0.84-5.20); LYMPHOCYTES PERCENT AUTO 10 % (21-46); MONOCYTES ABSOLUTE AUTO 0.91 K/mm3 (0.16-1.47); MONOCYTES PERCENT AUTO 15 % (4-13); Mean Corpuscular HGB 29.7 pg (26.0-34.0); Mean Corpuscular HGB Conc 29.9 g/dL (31.5-36.5); Mean Corpuscular Volume 99 fL (80-100); Mean Platelet Volume 9.7 fL (9.1-12.4); NEUTROPHILS ABSOLUTE AUTO 4.61 K/mm3 (1.96-9.15); NEUTROPHILS PERCENT AUTO 74 % (41-73); Platelet Count 185 K/mm3 (150-400); RDW Coefficient Variation 13.3 % (11.7-14.2); RDW Standard Deviation 48.4 fL (35.1-46.3); Red Blood Cell Count 3.43 M/mm3 (3.80-5.20); White Blood Cell Count 6.21 K/mm3 (4.00-11.30)
[2022-06-25 06:11] LABS: Albumin, Blood 2.9 g/dL (3.4-5.0); Anion Gap 3 mmol/L (6-16); Blood Urea Nitrogen 53 mg/dL (8-24); Bun/Creatinine Ratio 49.1 (12.0-20.0); CO2, Blood 35 mmol/L (21-32); Calcium, Blood 8.7 mg/dL (8.5-10.1); Chloride, Blood 99 mmol/L (98-108); Creatinine, Blood 1.08 mg/dL (0.40-1.00); Glomerular Filtration Rate 52 (60-); Glucose, Blood 106 mg/dL (70-99); Magnesium, Blood 2.4 mg/dL (1.6-2.4); Phosphorus, Blood 2.9 mg/dL (2.5-4.9); Potassium, Blood 5.7 mmol/L (3.5-5.5); Sodium, Blood 137 mmol/L (136-145)
--- NOTE | 2022-06-25 13:21 | NUR ---
PT WITH BLOODY SPUTUM WITH COUGH. DISCUSSED WITH , STATES THIS HAPPENS WHEN PT HAS COUGH. INFORMED DR TEAGUE OF THE SITUATION. HEPARIN D/C'D THIS MORNING AND WILL CONTINUE TO MONITOR. SUCTION SET UP AND AT PTS BEDSIDE.
--- NOTE | 2022-06-25 18:40 | NUR ---
SHIFT SUMMARY NO ACUTE CHANGES DURING SHIFT. PT ALERT AND ORIENTED TO SELF. MOMENTS OF CONFUSION. SON AT BEDSIDE MOST OF DAY. PT UP OOB TO CHAIR DURING MEALS. PT X1 ASSIST WITH GAITBELT AND FWW. INTERMITTENT INCONTINENCE, ATTENDS IN PLACE. PT MEDICATED X 1 WITH PRN MEDS FOR PAIN. CALL LIGHT WITHIN REACH.
[2022-06-26 04:49] LABS: BASOPHILS ABSOLUTE AUTO 0.04 K/mm3 (0.00-0.23); BASOPHILS PERCENT AUTO 1 % (0-2); EOSINOPHILS ABSOLUTE AUTO 0.05 K/mm3 (0.00-0.68); EOSINOPHILS PERCENT AUTO 1 % (0-6); Hematocrit 35.3 % (33.0-51.0); Hemoglobin 10.9 g/dL (11.5-16.0); IMMATURE GRAN ABSOLUTE AUTO 0.13 K/mm3 (0.00-0.10); IMMATURE GRAN PERCENT AUTO 2 % (0-1); LYMPHOCYTES ABSOLUTE AUTO 0.98 K/mm3 (0.84-5.20); LYMPHOCYTES PERCENT AUTO 13 % (21-46); MONOCYTES ABSOLUTE AUTO 1.05 K/mm3 (0.16-1.47); MONOCYTES PERCENT AUTO 14 % (4-13); Mean Corpuscular HGB 29.5 pg (26.0-34.0); Mean Corpuscular HGB Conc 30.9 g/dL (31.5-36.5); Mean Corpuscular Volume 95 fL (80-100); Mean Platelet Volume 9.6 fL (9.1-12.4); NEUTROPHILS ABSOLUTE AUTO 5.17 K/mm3 (1.96-9.15); NEUTROPHILS PERCENT AUTO 70 % (41-73); Platelet Count 215 K/mm3 (150-400); RDW Coefficient Variation 13.2 % (11.7-14.2); RDW Standard Deviation 45.6 fL (35.1-46.3); White Blood Cell Count 7.42 K/mm3 (4.00-11.30)
[2022-06-26 05:04] LABS: Anion Gap 5 mmol/L (6-16); Blood Urea Nitrogen 52 mg/dL (8-24); Bun/Creatinine Ratio 58.6 (12.0-20.0); CO2, Blood 32 mmol/L (21-32); Chloride, Blood 100 mmol/L (98-108); Creatinine, Blood 0.89 mg/dL (0.40-1.00); Glomerular Filtration Rate 66 (60-); Glucose, Blood 136 mg/dL (70-99); Magnesium, Blood 2.3 mg/dL (1.6-2.4); Phosphorus, Blood 2.5 mg/dL (2.5-4.9); Potassium, Blood 5.6 mmol/L (3.5-5.5); Sodium, Blood 137 mmol/L (136-145)
--- NOTE | 2022-06-26 05:38 | NUR ---
SHIFT SUMMARY PT COOPERATIVE WITH CARE. PT MOANS FREQUENTLY. PT MEDICATED FOR PAIN PER EMAR. PT SLEEPING IN 30-60 MINUTE TIME FRAMES. PT HAS CALL LIGHT WITHIN REACH, BUT DOES NOT USE IT.
[2022-06-26] MEDS ORDERED: BUME1 PO (10:20)
[2022-06-26] MEDS ORDERED: APHEN325 M1 PO (10:21)
[2022-06-26] MEDS ORDERED: SENNA LAXATIVE8.6 MG PO (10:23)
[2022-06-26] MEDS ORDERED: DULCOLAX400 MG/5 M PO (10:23)
[2022-06-26 11:08] LABS: SARS-Cov-2 (COVID-19) PCR, MMC NEGATIVE (NEGATIVE)
[2022-06-26] MEDS ORDERED: LOKELMA PO (11:38)
== END 2022-06-26 13:57 | DRG 291 ==
LOC: ER 07:55 → MEDS 09:14
PROVIDERS: ADMIT Family Medicine
DX: I11.0 Hypertensive heart disease with heart failure (principal); I50.23 Acute on chronic systolic (congestive) heart failure; R53.1 Weakness; I25.2 Old myocardial infarction; I48.91 Unspecified atrial fibrillation; Z88.8 Allergy status to other drugs, medicaments and biological substances; Z79.899 Other long term (current) drug therapy; I25.10 Atherosclerotic heart disease of native coronary artery without angina pectoris; Z20.822 Contact with and (suspected) exposure to COVID-19; F41.9 Anxiety disorder, unspecified; I27.20 Pulmonary hypertension, unspecified; M19.90 Unspecified osteoarthritis, unspecified site; M81.0 Age-related osteoporosis without current pathological fracture; Z79.02 Long term (current) use of antithrombotics/antiplatelets; G89.29 Other chronic pain; M54.9 Dorsalgia, unspecified; Z85.828 Personal history of other malignant neoplasm of skin; Z96.643 Presence of artificial hip joint, bilateral; Z96.652 Presence of left artificial knee joint; Z90.49 Acquired absence of other specified parts of digestive tract
CPT/HCPCS: 36415; 70450; 71045; 80053; 80069; 83735; 83880; 84100; 84132; 84484; 85025; 94760; 97116; 97162; 97166; 97530; 97535; 99285-25; A9270; J1644; J1940; J7060; U0004

== ENCOUNTER 2022-06-28 20:30 | Inpatient (IN) | payer MEDICARE, OTHER ==
[~2022-06-28] VITALS: Ht 165.1 cm; Wt 82.8 kg
[~2022-06-28 20:30] MED LIST changes: +APHEN325 M1 PO; +BUME1 PO; +DULCOLAX400 MG/5 M PO; +LOKELMA PO
[2022-06-28 21:12] LABS: PCO2 Arterial 66.2 mmHg (35-45); PO2 Arterial 89.4 mmHg (80-100)
[2022-06-28 21:30] LABS: Albumin, Blood 2.9 g/dL (3.4-5.0); Albumin/Globulin Ratio 0.9 (0.8-1.8); Bilirubin, Direct 0.1 mg/dL (0.0-0.3); Bilirubin, Indirect 0.4 mg/dL (0.1-0.7); Bilirubin, Total 0.5 mg/dL (0.1-1.0); Bun/Creatinine Ratio 55.5 (12.0-20.0); Calcium, Blood 9.2 mg/dL (8.5-10.1); Creatinine, Blood 0.9 mg/dL (0.40-1.00); Globulin, Blood 3.3 g/dL (2.2-4.0); Magnesium, Blood 2.4 mg/dL (1.6-2.4); Phosphorus, Blood 3.9 mg/dL (2.5-4.9); Potassium, Blood 4.7 mmol/L (3.5-5.5); Total Protein, Blood 6.2 g/dL (6.4-8.2)
[2022-06-28 21:49] LABS: Hemoglobin 11.8 g/dL (11.5-16.0); LYMPHOCYTES PERCENT AUTO 11 % (21-46)
[2022-06-28 21:58] LABS: BASOPHILS ABSOLUTE AUTO 0.03 K/mm3 (0.00-0.23); BASOPHILS PERCENT AUTO 0 % (0-2); EOSINOPHILS ABSOLUTE AUTO 0.09 K/mm3 (0.00-0.68); EOSINOPHILS PERCENT AUTO 1 % (0-6); Hematocrit 36.1 % (33.0-51.0); IMMATURE GRAN ABSOLUTE AUTO 0.06 K/mm3 (0.00-0.10); IMMATURE GRAN PERCENT AUTO 1 % (0-1); LYMPHOCYTES ABSOLUTE AUTO 0.77 K/mm3 (0.84-5.20); MONOCYTES ABSOLUTE AUTO 0.68 K/mm3 (0.16-1.47); MONOCYTES PERCENT AUTO 9 % (4-13); Mean Corpuscular HGB 30.1 pg (26.0-34.0); Mean Corpuscular HGB Conc 32.7 g/dL (31.5-36.5); Mean Corpuscular Volume 92 fL (80-100); NEUTROPHILS ABSOLUTE AUTO 5.59 K/mm3 (1.96-9.15); NEUTROPHILS PERCENT AUTO 78 % (41-73); RDW Coefficient Variation 13.7 % (11.7-14.2); RDW Standard Deviation 45.5 fL (35.1-46.3); Red Blood Cell Count 3.92 M/mm3 (3.80-5.20); White Blood Cell Count 7.22 K/mm3 (4.00-11.30)
[2022-06-28 22:02] LABS: Mean Platelet Volume 9.9 fL (9.1-12.4); Platelet Count 257 K/mm3 (150-400)
[2022-06-28 22:15] LABS: International Normalized Ratio 1.05
[2022-06-28 22:51] LABS: Influenza A, PCR NEGATIVE (NEGATIVE); Influenza B, PCR NEGATIVE (NEGATIVE); Resp Syncytial Virus, PCR NEGATIVE (NEGATIVE); SARS-Cov-2 (COVID-19) PCR, MMC NEGATIVE (NEGATIVE)
[2022-06-28] MEDS ORDERED: ONDA4 PO (23:01)
[2022-06-28 23:21] LABS: Source, Urine Foley catheter
[2022-06-28 23:34] LABS: Bilirubin, Urine Neg (Neg); Blood, Urine 1+ (Neg); Glucose Qualitative, Urine Neg (Neg); Ketones, Urine Neg (Neg); Leukocyte Esterase, Urine Neg (Neg); Nitrite, Urine Neg (Neg); Protein, Urine 1+ (Neg); Specific Gravity, Urine 1.015 (1.003-1.022); Urobilinogen, Urine NORM (Normal)
[2022-06-28 23:39] LABS: Appearance, Urine Clear (Clear); Bacteria Not Seen /hpf; Color, Urine Yellow (P-Yellow); Red Blood Cells, Urine 0-2 /hpf (0-2); Squamous Epithelial Cells Not Seen /hpf (Few); White Blood Cells, Urine Not Seen /hpf (0-5)
[2022-06-29 01:15] LABS: U Amphetamine Screen Not Detected; U Barbituate Screen Not Detected; U Benzodiazapine Screen Not Detected; U Buprenorphine Screen Not Detected; U Cannabinoids Screen Not Detected; U Cocaine Screen Not Detected; U Methadone Screen Not Detected; U Methamphetamine Screen Not Detected; U Opiates Screen DETECTED; U Oxycodone Screen Not Detected; U Phencyclidine Screen Not Detected; U Propoxyphene Screen Not Detected
[2022-06-29 05:08] LABS: BASOPHILS ABSOLUTE AUTO 0.02 K/mm3 (0.00-0.23); BASOPHILS PERCENT AUTO 0 % (0-2); EOSINOPHILS ABSOLUTE AUTO 0.09 K/mm3 (0.00-0.68); EOSINOPHILS PERCENT AUTO 1 % (0-6); Hematocrit 40.5 % (33.0-51.0); Hemoglobin 12.1 g/dL (11.5-16.0); IMMATURE GRAN ABSOLUTE AUTO 0.04 K/mm3 (0.00-0.10); IMMATURE GRAN PERCENT AUTO 1 % (0-1); LYMPHOCYTES ABSOLUTE AUTO 0.84 K/mm3 (0.84-5.20); LYMPHOCYTES PERCENT AUTO 13 % (21-46); MONOCYTES ABSOLUTE AUTO 0.62 K/mm3 (0.16-1.47); MONOCYTES PERCENT AUTO 9 % (4-13); Mean Corpuscular HGB 29.4 pg (26.0-34.0); Mean Corpuscular HGB Conc 29.9 g/dL (31.5-36.5); Mean Platelet Volume 9.9 fL (9.1-12.4); NEUTROPHILS ABSOLUTE AUTO 5.03 K/mm3 (1.96-9.15); NEUTROPHILS PERCENT AUTO 76 % (41-73); Platelet Count 247 K/mm3 (150-400); RDW Coefficient Variation 13.6 % (11.7-14.2); RDW Standard Deviation 48.7 fL (35.1-46.3); Red Blood Cell Count 4.12 M/mm3 (3.80-5.20); White Blood Cell Count 6.64 K/mm3 (4.00-11.30)
[2022-06-29 05:11] LABS: Mean Corpuscular Volume 98 fL (80-100)
[2022-06-29 05:35] LABS: CPK Creatine Kinase 46 U/L (26-193)
--- NOTE | 2022-06-29 05:37 | NUR ---
CARE ASSUMPTION: PATIENT ARRIVED BY GURASYA WITH NON-REBREATHER IN PLACE AT 15L. PATIENT SLID TO PCU BED WITH 4 STAFF MEMBER ASSIST. PATIENT MUMBLED WORDS, ORIENTED TO SELF, DID NOT FOLLOW DIRETIONS, AND IS SQUIRMING TOWARDS BOTTOM OF BED. BP AND HR WNL, AFEBRILE, RR 18-24/MIN. PATIENT DESATS WITH SLIGHTEST MOVEMENT AND IS SLOW TO RECOVER. RT SWITCHED PATIENT TO NC AT 5L, BUT PATIENT HAS BEEN BUMPED TO 9L TO SUSTAIN O2 SATS =>90%. PATIENT HAS EXTENSIVE BRUISING TO BLE AND LEFT SIDE OF NECK. IV PATENT. MEDICATED PER EMAR.
[2022-06-29 05:47] LABS: Albumin, Blood 2.8 g/dL (3.4-5.0); Albumin/Globulin Ratio 0.9 (0.8-1.8); Bilirubin, Total 0.5 mg/dL (0.1-1.0); Bun/Creatinine Ratio 51.5 (12.0-20.0); Creatinine, Blood 1.01 mg/dL (0.40-1.00); Globulin, Blood 3.2 g/dL (2.2-4.0); Potassium, Blood 4.8 mmol/L (3.5-5.5)
--- NOTE | 2022-06-29 06:49 | NUR ---
SHIFT SUMMARY: PATIENT SYSTOLIC BP >100S AND HR WNL. PATIENT AFEBRILE. PATIENT DOES NOT HAVE A CONSISTEN PLETH - O2 DEMANDS WAX AND WANE, HAS SUSTAINED BEST O2 SATURATION ON 11L NC. PATIENT RESPONDS TO TOUCH, A&O TO SELF, BELIEVES SHE'S IN [place]. MEDICATED PER EMAR. MEDICATION HX RECONCILED. ADMISSION HX NOT COMPLETE D/T PATIENT MENTATION. BED LOW WITH CALL LIGHT IN REACH. WILL REPORT TO ONCOMING RN.
--- NOTE | 2022-06-29 07:16 | NUR ---
ASSUMED CARE: PT RESTING QUIETLY IN BED AT THIS TIME. WAS ON 11L NC AT 100%. TITRATED DOWN TO 9L. AFIB IN 80S ON TELE. BED ALARM ON. NO ACUTE NEEDS OR CONCERNS AT THIS TIME.
--- NOTE | 2022-06-29 11:58 | NUR ---
CALL TO DR DOWNING DUE TO PT CONTINUING TO DESATURATE WITH SLEEP. RELAYED LABS WITH HIM AND HE ORDERED BIPAP. RT AWARE. DR TO REVIEW CHART FOR FURTHER ORDERS.
--- NOTE | 2022-06-29 12:04 | NUR ---
PT DESATURATED INTO 70S WITH SHALLOW RESPIRATIONS. ROUSED PT TO TAKE DEEP BREATHS. PLACED NRB ON AT 15L TO ASSIST WITH THIS. RT AWARE AND PLACING PT ON BIPAP CURRENTLY
--- NOTE | 2022-06-29 13:41 | NUR ---
CALL TO DR DOWNING TO ASK IF HE WANTED ABG AFTER PT HAS BEEN ON BIPAP FOR A FEW HOURS. STATED NO ABG FOR NOW DUE TO COMPENSATION. ALSO MADE AWARE THAT PT'S BIPAP ALARMS FOR LOW TIDAL VOLUMES. STATES THAT HE THINKS SHE HAS BASELINE PROBLEM THAT MAKES HER TAKE SHALLOW BREATHS. RT AWARE OF CONTINUED ALARM AND STATED SHE WILL COME CHECK ON PT.
[2022-06-29 13:42] LABS: CPK Creatine Kinase 30 U/L (26-193)
--- NOTE | 2022-06-29 14:01 | NUR ---
PT TAKEN FOR CHEST CT AT THIS TIME VIA GURNEY BY TRANSPORT STAFF. RT RECOMMENDED PLACING PT BACK ON NC 10L DURING TRANSPORT AND TESTING.
--- NOTE | 2022-06-29 18:20 | NUR ---
SHIFT SUMMARY: PT HAS BEEN ON BIPAP WITH A RATE 14/ AND 70% FIO2. DIURESING WITH MARGOT SMITH IN PLACE. PT HAS BEEN LETHARGIC TODAY WITH A MORE WAKEFUL PERIOD EARLY THIS AFTERNOON. SON CAME BY THIS AFTERNOON AND RECIEVED UPDATE FROM CASE FINISHING MACHINE ADJUSTER. NO ACUTE NEEDS AT THIS TIME.
--- NOTE | 2022-06-29 23:21 | NUR ---
ASSUMPTION OF CARE: ASSUMED CARE OF PT AT 1900. PT IS A&O X 2-3. PT IS CURRENTLY ON BIPAP WITH SETTINGS 18/12 FIO2 70%; SP02 MONITORING IS NOT CONSISTENT, O2 MAINTAINING 96< WHEN A GOOD READING IS OBTAININED. DURING ASSESSMENT, PT WAS PUT ON 9L O2 VIA NC TO PERFORM ORAL CARE. PT TOLERATED THIS WELL, O2 LEVELS MAINTAINED 94<. AT THIS TIME, PT COMPLAINED OF DRY MOUTH AND DESIRE TO DRINK WATER. BED SIDE SWALLOW EVAL COMPLETED BY THIS NURSE; THE PT TOLERATED WELL AND WAS ABLE TO DRINK FROM A STRAW EFFECTIVELY. PT IN AFIB THIS SHIFT WITH HR 90-100'S, AND SBP 120'S. PT HAS NO C/O CHEST PAIN AT THIS TIME. PT HAS HYPOACTIVE BS IN ALL 4 QUADRANTS; PT C/O PAIN IN THE LEFT UPPER AND LOWER REGIONS OF THE ABD WHEN PALPATED. PT HAS A FROST CATHER IN PLACE THAT IS DRAINING TO GRAVITY; URINE CLAER AND YELLOW. PT HAS A DEPENDS IN PLACE. PT HAS WARM EXTREMITIES WITH THE FEET COOL BILATERALLY; CAP REFIL REMAINS < 3 SECONDS. BED LOWERED AND CALL LIGHT IN REACH. WILL CONTINUE TO MONITOR THROUGHOUT THE SHIFT.
[2022-06-30 04:17] LABS: BASOPHILS ABSOLUTE AUTO 0.02 K/mm3 (0.00-0.23); BASOPHILS PERCENT AUTO 0 % (0-2); EOSINOPHILS ABSOLUTE AUTO 0.09 K/mm3 (0.00-0.68); EOSINOPHILS PERCENT AUTO 1 % (0-6); Hemoglobin 10.2 g/dL (11.5-16.0); IMMATURE GRAN ABSOLUTE AUTO 0.04 K/mm3 (0.00-0.10); IMMATURE GRAN PERCENT AUTO 1 % (0-1); LYMPHOCYTES ABSOLUTE AUTO 0.68 K/mm3 (0.84-5.20); LYMPHOCYTES PERCENT AUTO 9 % (21-46); MONOCYTES ABSOLUTE AUTO 0.78 K/mm3 (0.16-1.47); MONOCYTES PERCENT AUTO 11 % (4-13); Mean Corpuscular HGB 29.2 pg (26.0-34.0); Mean Corpuscular Volume 97 fL (80-100); Mean Platelet Volume 9.9 fL (9.1-12.4); NEUTROPHILS ABSOLUTE AUTO 5.67 K/mm3 (1.96-9.15); NEUTROPHILS PERCENT AUTO 78 % (41-73); Platelet Count 209 K/mm3 (150-400); RDW Coefficient Variation 13.4 % (11.7-14.2); RDW Standard Deviation 47.6 fL (35.1-46.3); Red Blood Cell Count 3.49 M/mm3 (3.80-5.20); White Blood Cell Count 7.28 K/mm3 (4.00-11.30)
[2022-06-30 04:44] LABS: Albumin, Blood 2.6 g/dL (3.4-5.0); Bilirubin, Total 0.4 mg/dL (0.1-1.0); Bun/Creatinine Ratio 50.5 (12.0-20.0); Calcium, Blood 8.6 mg/dL (8.5-10.1); Creatinine, Blood 1.01 mg/dL (0.40-1.00); Globulin, Blood 2.7 g/dL (2.2-4.0); Potassium, Blood 4.1 mmol/L (3.5-5.5); Total Protein, Blood 5.3 g/dL (6.4-8.2)
--- NOTE | 2022-06-30 06:14 | NUR ---
SHIFT SUMMARY: NO ACUTE CHANGES THIS SHIFT. PT REMAINS A&O X [address] WITH SETTINGS 15/5 FIO2 50%. PT HAS BEEN IN AND OUT OF SLEEP THROGHOUT THE SHIFT. PT HAS HAD MANY BIPAP MASK BREAKS AND HAS TOLERATED 9L VIA NC. PT HAS BEEN DRINKING WATER THROUGHOUT THE SHIFT. PT HAS BEEN STATING DESIRE TO EAT; WILL PASS THIS ALONG TO ONCOMING NURSE. PT HAD CONTINUOUS C/O PAIN IN HER BILAT. FEET; REPOSITIONING AND MEDICATIONS PER EMAR SUBSIDED PAIN. WILL CONTINUE TO MONITOR UNTIL ONCOMING NURSE ARRIVES.
--- NOTE | 2022-06-30 09:56 | NUR ---
AM NOTE: ALERT AND ORIENTED X3. ABLE TO TELL ME NAME, , WHERE SHE IS, ABOUT FAMILY AND MORE. NOT ORIENTED TO DATE OR TIME. ABLE TO MOVE ALL EXTREMITIES IN BED. BEDREST AT THIS TIME. DENIES NUMBNESS/TINGLING. PERRLA. TELE SHOWING AFIB WITH HR 70-80'S. BP STABLE. SOME SWELLING TO BLE/FEET/ANKLE. DENIES CHEST PAIN/PRESSURE. ON BIPAP THIS AM AT START OF SHIFT 15/5 AND 50% FIO2 SATING 100%. RESPIRATORY IN AND TRANSITIONED TO 5L NASAL CANNULA SATING MID 90'S. LUNGS SOUNDING CLEAR/DIM IN BASES. OVERALL WEAKNESS NOTES. FROST CATH IN PLACE DRAINING CLEAR/YELLOW URINE TO GRAVITY. NPO AT THIS TIME, ALTHOUGH PATIENT MENTATION IMPROVING, BEDSIDE SWALLOW EVAL DONE, ABLE TO SWALLOW MEDICATIONS AND WATER THIS AM SAFELY. WILL ASK DOCTOR ABOUT ADVANCING DIET. Q2 TURNS AND NEEDED. CALL LIGHT IN REACH. BED IN LOW LOCKED POSITION. BED ALARM ON FOR SAFETY. WILL CONTINUE TO MONITOR.
--- NOTE | 2022-06-30 18:06 | NUR ---
SHIFT SUMMARY: PATIENT MENTATION IMPOVED THROUGHOUT SHIFT. REMAINS AFIB WITH HR 70'S. BP SOFTER THIS EVENING AND DINNER TIME CARDIAC MEDS HELD. REMAINS ON 5L NASAL CANNULA SATING MID-HIGH 90'S. COMPLAINED OF GAS PAIN AFTER LUNCH, NEW ORDERS PLACED AND PATIENT RECIEVED SIMETHICONE WITH GOOD RELIEF. SON IN AND UPDATED. TOLERATING PO DIET. ATTENDS IN PLACE. FROST CATH DRAINING CLEAR YELLOW URINE. CALL LIGHT IN REACH. WILL CONTINUE TO MONITOR AND REPORT OFF TO ONCOMING RN.
[2022-07-01 04:32] LABS: BASOPHILS ABSOLUTE AUTO 0.01 K/mm3 (0.00-0.23); BASOPHILS PERCENT AUTO 0 % (0-2); EOSINOPHILS ABSOLUTE AUTO 0.06 K/mm3 (0.00-0.68); EOSINOPHILS PERCENT AUTO 1 % (0-6); Hematocrit 29.6 % (33.0-51.0); Hemoglobin 9.2 g/dL (11.5-16.0); IMMATURE GRAN ABSOLUTE AUTO 0.03 K/mm3 (0.00-0.10); IMMATURE GRAN PERCENT AUTO 1 % (0-1); LYMPHOCYTES PERCENT AUTO 12 % (21-46); MONOCYTES ABSOLUTE AUTO 0.67 K/mm3 (0.16-1.47); MONOCYTES PERCENT AUTO 12 % (4-13); Mean Corpuscular HGB 29.3 pg (26.0-34.0); Mean Corpuscular HGB Conc 31.1 g/dL (31.5-36.5); Mean Corpuscular Volume 94 fL (80-100); Mean Platelet Volume 9.7 fL (9.1-12.4); NEUTROPHILS ABSOLUTE AUTO 4.29 K/mm3 (1.96-9.15); NEUTROPHILS PERCENT AUTO 75 % (41-73); Platelet Count 191 K/mm3 (150-400); RDW Coefficient Variation 13.6 % (11.7-14.2); RDW Standard Deviation 46.1 fL (35.1-46.3); Red Blood Cell Count 3.14 M/mm3 (3.80-5.20); White Blood Cell Count 5.76 K/mm3 (4.00-11.30)
[2022-07-01 04:50] LABS: Bun/Creatinine Ratio 55.7 (12.0-20.0); Calcium, Blood 8.4 mg/dL (8.5-10.1); Creatinine, Blood 0.86 mg/dL (0.40-1.00); Potassium, Blood 3.7 mmol/L (3.5-5.5)
--- NOTE | 2022-07-01 05:55 | NUR ---
SHIFT SUMMARY PT A&Ox4, CALLS AND COMMUNICATES NEEDS APPROPRIATELY, DOES REPEAT STATEMENTS AT TIMES. PT DID CALL OUT ONCE AT APPROXIMATELY 2300 STATING THAT SHE HAD A NIGHTMARE. VSS, SpO2> 92% ON 2L VIA NC. BP SOFT WITH SBP RANGING FROM 90-110's, NONSYMPTOMATIC. PT REMAINED BEDREST THIS SHIFT AND DID NOT NEED TO HAVE A BM. FROTS CATHETER IN PLACE AND DRAINING TO GRAVITY. NO ACUTE EVENTS THIS SHIFT. WILL CONTINUE TO MONITOR AND PROVIDE CARE UNTIL REPORT TO DAY SHIFT RN.
--- NOTE | 2022-07-01 18:10 | NUR ---
SHIFT SUMMARY; ASSUMED CARE AT 0700, A/A/OX4 DURING SHIFT. UP TO BEDSIDE COMMODE WITH 2 PERSON ASSIST. WORKED WITH PT/OT. FROST CATH IN PLACE DRAINING CLEAR URINE TO GRAVITY. SON AT BEDSIDE MOST OF DAY. COMPLETE BED BATH AND ORAL CARE. REPOSITIONED Q2, VSS, 2L O2, WILL CONTINUE TO MONITOR AND TREAT UNTIL CHANGE OF SHIFT.
--- NOTE | 2022-07-02 05:17 | NUR ---
YSHIFT SUMMARY PT A&Ox4, PT WAS SLIGHTLY CONFUSED AT START OF SHIFT STATING THAT SHE DID NOT KNOW WHERE SHE WAS AND VARGAS SHE DID NOT REMEMBER WHY SHE CAME HERE, THIS CONFUSION RESOLVED AFTER BEING REORIENTED AND GOT SOME SLEEP. PT DID CALL IN THE MIDDLE OF THE NIGHT TO REPORT THAT SHE WAS ITCHY AND STATED THAT IT WAS D/T THE BED BUGS, PT WENT BACK TO SLEEP AND DID NOT WAKE UP WITH ANYMORE COMPLAINTS. VSS, SpO2> 92% ON 2L VIA NC, AFIB 80's. FROST CATHETER IN PLACE AND DRAINING TO GRAVITY. NO OTHER EVENTS THIS SHIFT. WILL CONTINUE TO MONITOR AND PROVIDE CARE UNTIL REPORT TO DAY SHIFT RN.
[2022-07-02 10:19] LABS: Bun/Creatinine Ratio 40.5 (12.0-20.0); Calcium, Blood 9.4 mg/dL (8.5-10.1); Creatinine, Blood 0.77 mg/dL (0.40-1.00); Potassium, Blood 3.6 mmol/L (3.5-5.5)
--- NOTE | 2022-07-02 11:58 | NUR ---
Pt has low blood pressure while sitting in chair. Denies dizzyness/lightheadedness. STates that she already had lunch and wants to get back to bed. toerated the activity on 1 l/min O2 delivery, but does have anxiety and starts to yell "help" during the transfer, with gait belt, walker, and 2 staff members assisting. She redirected well, responded to calming conversation, and was able to transfer to the bed. Blood pressure only slightly better, MAP still 66. She continues to deny symptoms.
--- NOTE | 2022-07-02 14:06 | NUR ---
Pt has low blood pressure, but is ambulatory in the room with staff without any dizzyness/lightheadedness.
--- NOTE | 2022-07-02 17:19 | NUR ---
SHIFT SUMMARY PT ALERT AND ORIENTED TO SELF, PLACE AND FAMILY; HAS INTERMITTENT PERIODS OF CONFUSION BUT IS ABLE TO BE REORIENTED. SON AT BEDSIDE ON AND OFF THROUGHOUT SHIFT. PT HAS HAD SOFT BP; SBP IN 80'S, MAPS 60 - 65. DENIES DIZZINESS OR LIGHTHEADNESS. PT TALKING AND INTERACTING, STEADY WHEN TRANSFERRED. PROVIDER NOTIFIED; ORDERS TO HOLD ANY BP MEDICATIONS AND TO NOTIFY PROVIDER IF MAP IS CONSISTENTLY <65. 02 SATS 94% ON 1 L. THIS RN TRIED TO WEEN PT OFF O2 PER PROVIDER ORDER. PT O2 >93 BUT THEN PT TOOK A NAP AND O2 SATS DECREASED. PT CURRENTLY BACK ON 1 L. FROST DC'D AND PT UP TO BSC W/1-2 PERSON ASSIST. PT VOIDING WELL AND PASSED BM. CALL LIGHT IN REACH AND BED IN LOWEST POSITION
--- NOTE | 2022-07-02 21:37 | NUR ---
UPDATE PT WITH COMPLAINT OF NOT BEING ABLE TO SLEEP AND STATED THAT SHE NORMALLY TAKES TYLENOL AT HOME TO HELP WITH THIS, PT NOT ABLE TO CLARIFY IF SHE TAKES TYLENOL PM OR JUST TYLENOL. CALL TO DR. GAMA REQUESTING MELATONIN, ORDERS RECIEVED FOR 5mg MELATONIN QHS PRN.
--- NOTE | 2022-07-03 05:38 | NUR ---
SHIFT SUMMARY A&Ox3, PT HAS MOMENTS OF CONFUSION AT TIMES WHEN AWAKING FROM A DEEP SLEEP, PT IS EASILY REORIENTED. VSS, BP STABLE, AFIB WITH PVC's 70's. TRIED TO TITRATE PT DOWN TO RA, PT DESATURATED TO 88 WHILE SLEEPING HEAVILY, PLACED PT BACK ON 1L. SpO2> 92% ON 1L VIA NC. PT ABLE TO VOID THIS SHIFT AFTER FROST CATHETER WAS REMOVED DURING THE PREVIOUS SHIFT. NO OTHER EVENTS THIS SHIFT, WILL REPORT TO DAY SHIFT RN.
--- NOTE | 2022-07-03 17:35 | NUR ---
SHIFT SUMMARY PT PLEASANT AND COOPERATIVE W/CARE. VSS; BP 120'S, HR 90'S - 100'S, 02 >95% ON 1 L. PT UP TO BEDSIDE CHAIR MOST OF THE DAY. COMPLAINS OF TOOTHACHE BUT OTHERWISE DENIES PAIN. ALSO DENIES SOB, CHEST PAIN OR CHEST PRESSURE. PT UP TO BSC SEVERAL TIMES TO VOID AND PASSED BM TODAY. NO ACUTE CHANGES. PT'S SON IN TO VISIT THIS AM. CALL LIGHT IN REACH
[2022-07-04 06:12] LABS: BASOPHILS ABSOLUTE AUTO 0.02 K/mm3 (0.00-0.23); BASOPHILS PERCENT AUTO 0 % (0-2); EOSINOPHILS ABSOLUTE AUTO 0.08 K/mm3 (0.00-0.68); EOSINOPHILS PERCENT AUTO 1 % (0-6); Hematocrit 32.8 % (33.0-51.0); Hemoglobin 10.2 g/dL (11.5-16.0); IMMATURE GRAN ABSOLUTE AUTO 0.04 K/mm3 (0.00-0.10); IMMATURE GRAN PERCENT AUTO 1 % (0-1); LYMPHOCYTES ABSOLUTE AUTO 0.78 K/mm3 (0.84-5.20); LYMPHOCYTES PERCENT AUTO 9 % (21-46); MONOCYTES ABSOLUTE AUTO 0.93 K/mm3 (0.16-1.47); MONOCYTES PERCENT AUTO 11 % (4-13); Mean Corpuscular HGB 29.7 pg (26.0-34.0); Mean Corpuscular HGB Conc 31.1 g/dL (31.5-36.5); Mean Corpuscular Volume 95 fL (80-100); Mean Platelet Volume 9.8 fL (9.1-12.4); NEUTROPHILS ABSOLUTE AUTO 6.94 K/mm3 (1.96-9.15); NEUTROPHILS PERCENT AUTO 79 % (41-73); Platelet Count 174 K/mm3 (150-400); RDW Coefficient Variation 13.8 % (11.7-14.2); RDW Standard Deviation 47.8 fL (35.1-46.3); Red Blood Cell Count 3.44 M/mm3 (3.80-5.20); White Blood Cell Count 8.79 K/mm3 (4.00-11.30)
--- NOTE | 2022-07-04 06:28 | NUR ---
NOC SHIFT SUMMARY PT SLEPT WELL OVERNIGHT, ORIENTED X4 W/OCCASIONAL FORGETFULNESS WHEN FIRST AWAKENING ABOUT TIME OF DAY. REORIENTS EASILY. VSS PER PT TREND, ON 1L NC. AFIB IN 80S ON TELEMETRY. INCONTINENT W/BRIEF IN PLACE. REFUSED [place] FOR ACCURATE I/OS AT THIS TIME. WILL PASS ON TO DAY RN
[2022-07-04 06:35] LABS: Albumin, Blood 2.5 g/dL (3.4-5.0); Albumin/Globulin Ratio 0.8 (0.8-1.8); Bilirubin, Total 0.4 mg/dL (0.1-1.0); Bun/Creatinine Ratio 41.1 (12.0-20.0); Calcium, Blood 8.9 mg/dL (8.5-10.1); Creatinine, Blood 0.71 mg/dL (0.40-1.00); Potassium, Blood 3.8 mmol/L (3.5-5.5); Total Protein, Blood 5.5 g/dL (6.4-8.2)
[2022-07-04] MEDS ORDERED: FURO40 PO (07:31)
[2022-07-04 10:34] LABS: SARS-Cov-2 (COVID-19) PCR, MMC NEGATIVE (NEGATIVE)
[2022-07-04] MEDS ORDERED: BUSP10 PO (10:43)
[2022-07-04] MEDS ORDERED: LOSA25 PO (10:45)
--- NOTE | 2022-07-04 11:26 | NUR ---
SHIFT SUMMARY PT A&O, UP IN BEDSIDE CHAIR THIS AM. VSS. OT IN TO WORK WITH PT TODAY. SON IN TO VISIT THIS AM. HE BROUGHT CLOTHES AND SOME BELONGINGS TO BE TRANSFERRED WITH PT. DISCHARGE ORDERS IN FOR TODAY. PT WEENED OFF O2, O2 SATS 94% ON RA. TRANSPORT ARRIVED AT 1050 FOR DISCHARGE TO SNF IN [facility]). PT LEFT VIA WHEELCHAIR W/PERSONAL FWW AND BELONGINGS. VERBAL REPORT CALLED IN TO FACILITY AND SON CALLED. THIS RN LEFT SON A VOICEMAIL ON UPDATE AND TO NOTIFY THAT TRANSPORT ARRIVED TO PICK PT UP.
== END 2022-07-04 11:10 | DRG 871 ==
LOC: ER 20:30 → PCU 06-29 00:29
PROVIDERS: Hospitalist; Internal Medicine; Student in an Organized Health Care Education/Training Program; ADMIT Internal Medicine
PROC: 5A09357 Assistance with Respiratory Ventilation, Less than 24 Consecutive Hours, Continuous Positive Airway Pressure (ICD-10-PCS; principal; 2022-06-29)
PROC: 3E03329 Introduction of Other Anti-infective into Peripheral Vein, Percutaneous Approach (ICD-10-PCS; 2022-06-29)
DX: A41.9 Sepsis, unspecified organism (principal); I50.23 Acute on chronic systolic (congestive) heart failure; J96.21 Acute and chronic respiratory failure with hypoxia; J96.22 Acute and chronic respiratory failure with hypercapnia; J69.0 Pneumonitis due to inhalation of food and vomit; N17.9 Acute kidney failure, unspecified; E85.9 Amyloidosis, unspecified; G93.1 Anoxic brain damage, not elsewhere classified; I11.0 Hypertensive heart disease with heart failure; D69.6 Thrombocytopenia, unspecified; K21.9 Gastro-esophageal reflux disease without esophagitis; F41.1 Generalized anxiety disorder; E78.00 Pure hypercholesterolemia, unspecified; M81.0 Age-related osteoporosis without current pathological fracture; Z66 Do not resuscitate; M41.9 Scoliosis, unspecified; M19.90 Unspecified osteoarthritis, unspecified site; F03.90 Unspecified dementia, unspecified severity, without behavioral disturbance, psychotic disturbance, mood disturbance, and anxiety; I25.10 Atherosclerotic heart disease of native coronary artery without angina pectoris; R77.8 Other specified abnormalities of plasma proteins; I48.0 Paroxysmal atrial fibrillation; H54.7 Unspecified visual loss; Z20.822 Contact with and (suspected) exposure to COVID-19; K58.9 Irritable bowel syndrome, unspecified; M54.9 Dorsalgia, unspecified; Z96.652 Presence of left artificial knee joint; Z96.643 Presence of artificial hip joint, bilateral; G89.29 Other chronic pain; Z98.890 Other specified postprocedural states; Z85.3 Personal history of malignant neoplasm of breast; Z85.828 Personal history of other malignant neoplasm of skin; Z87.828 Personal history of other (healed) physical injury and trauma; Z88.8 Allergy status to other drugs, medicaments and biological substances; Z79.02 Long term (current) use of antithrombotics/antiplatelets; Z79.899 Other long term (current) drug therapy; I25.2 Old myocardial infarction; Z90.49 Acquired absence of other specified parts of digestive tract; Z87.891 Personal history of nicotine dependence
CPT/HCPCS: 0241U; 36415; 36600; 51702; 70450; 71045; 71260; 80048; 80053; 81001; 82140; 82248; 82550; 82803; 83605; 83735; 83880; 84100; 84145; 84484; 85025; 85379; 85610; 85730; 87040; 93005; 93010; 94660; 94760; 94762; 96365; 96375; 97110; 97162; 97166; 97530; 97535; 99291-25; A9270; J0295; J1650; J1940; J2310; J2405; J7030; Q9967; U0004

== ENCOUNTER 2022-08-08 01:08 | Inpatient (IN) | payer MEDICARE, OTHER ==
[~2022-08-08] VITALS: Ht 157.5 cm; Wt 76.5 kg
[~2022-08-08 01:08] MED LIST changes: +BUSP10 PO; +LOSA25 PO
[2022-08-08 02:44] LABS: BASOPHILS ABSOLUTE AUTO 0.02 K/mm3 (0.00-0.23); BASOPHILS PERCENT AUTO 0 % (0-2); EOSINOPHILS PERCENT AUTO 2 % (0-6); Hematocrit 37.2 % (33.0-51.0); Hemoglobin 11.3 g/dL (11.5-16.0); IMMATURE GRAN ABSOLUTE AUTO 0.02 K/mm3 (0.00-0.10); IMMATURE GRAN PERCENT AUTO 0 % (0-1); LYMPHOCYTES ABSOLUTE AUTO 0.64 K/mm3 (0.84-5.20); LYMPHOCYTES PERCENT AUTO 12 % (21-46); MONOCYTES PERCENT AUTO 11 % (4-13); Mean Corpuscular HGB 30.1 pg (26.0-34.0); Mean Corpuscular HGB Conc 30.4 g/dL (31.5-36.5); Mean Corpuscular Volume 99 fL (80-100); Mean Platelet Volume 10.2 fL (9.1-12.4); NEUTROPHILS ABSOLUTE AUTO 3.93 K/mm3 (1.96-9.15); NEUTROPHILS PERCENT AUTO 74 % (41-73); Platelet Count 132 K/mm3 (150-400); RDW Coefficient Variation 15.1 % (11.7-14.2); RDW Standard Deviation 54.7 fL (35.1-46.3); Red Blood Cell Count 3.76 M/mm3 (3.80-5.20); White Blood Cell Count 5.31 K/mm3 (4.00-11.30)
[2022-08-08 03:04] LABS: Albumin, Blood 3.1 g/dL (3.4-5.0); Albumin/Globulin Ratio 1.1 (0.8-1.8); Bilirubin, Total 0.3 mg/dL (0.1-1.0); Bun/Creatinine Ratio 26.9 (12.0-20.0); Calcium, Blood 9.3 mg/dL (8.5-10.1); Creatinine, Blood 1.04 mg/dL (0.40-1.00); Globulin, Blood 2.7 g/dL (2.2-4.0); Potassium, Blood 3.3 mmol/L (3.5-5.5); Total Protein, Blood 5.8 g/dL (6.4-8.2)
[2022-08-08 03:20] LABS: Base Excess Venous 10.8 mmol/L; Bicarbonate Venous 32.3 mmol/L (24.0-30.0); PCO2 Venous 71.8 mmHg (38-42); pH Blood Venous 7.32 (7.34-7.37)
[2022-08-08 03:50] LABS: Influenza A, PCR NEGATIVE (NEGATIVE); Influenza B, PCR NEGATIVE (NEGATIVE); Resp Syncytial Virus, PCR NEGATIVE (NEGATIVE); SARS-Cov-2 (COVID-19) PCR, MMC NEGATIVE (NEGATIVE)
[2022-08-08 07:34] LABS: CPK Creatine Kinase 35 U/L (26-193)
[2022-08-08 10:17] LABS: Base Excess Venous 12.3 mmol/L; Bicarbonate Venous 33.2 mmol/L (24.0-30.0); pH Blood Venous 7.33 (7.34-7.37)
[2022-08-08 14:32] LABS: CPK Creatine Kinase 30 U/L (26-193)
[2022-08-08] MEDS ORDERED: ANASTROZOLE1 M7 PO (15:57)
[2022-08-08] MEDS ORDERED: Acerola C500 MG PO (15:58)
[2022-08-08] MEDS ORDERED: FERROUS GLUCON324 M7 PO (15:59)
[2022-08-08] MEDS ORDERED: FOLI1 PO (15:59)
[2022-08-08] MEDS ORDERED: METO50ER PO (16:00)
[2022-08-08] MEDS ORDERED: ANAS1 PO (16:01)
--- NOTE | 2022-08-08 17:16 | NUR ---
PT A/OX3, PLEASANT AND COOPERATIVE. PT WAS A NEW ADMIT TODAY FROM ER AT AROUND 1230. PT ARRIVED TO THE MEDICAL FLOOR VIA GURNEY. PT WAS ON O2 @ 3L/MIN. O2 TITRATED TO 1L/MIN VIA OXYMIZER. PT IS MAINTAINING O2 SAT'S > 90%. PT WAS ORIENTED TO THE ROOM LAYOUT AND CALL SYSTEM. PT'S SON WAS HERE TO VISIT THIS AFTERNOON. MED LIST WAS UPDATED. PT ON TELE IN A-[facility]IB [facility]. PT DENIED ANY PAIN. CALL LIGHT IN REACH, WILL CONTINUE TO MONITOR AND ASSESS FOR CHANGES
--- NOTE | 2022-08-09 03:48 | NUR ---
SHIFT SUMMARY 81 YR F ADMITTED ON 08/08/22 FOR HYPOXIA. DNR. NO ACUTE CHANGES THIS SHIFT. EARLY IN THE SHIFT PT WAS MOANING LOUDLY AND WHEN ASKED WHAT WAS WRONG SHE STATED THAT NOTHING WAS WRONG AND THAT SHE DIDN'T REALIZE SHE WAS MOANING, SHE THOUGHT SHE WAS SLEEPING. SHE DENIED PAIN OR DISCOMFORT AND AFTER REPOSITIONING SHE WAS ABLE TO FALL ASLEEP AND SLEPT FOR MOST OF THE NIGHT.
[2022-08-09 04:51] LABS: BASOPHILS ABSOLUTE AUTO 0.02 K/mm3 (0.00-0.23); BASOPHILS PERCENT AUTO 0 % (0-2); EOSINOPHILS ABSOLUTE AUTO 0.06 K/mm3 (0.00-0.68); EOSINOPHILS PERCENT AUTO 1 % (0-6); Hematocrit 38.4 % (33.0-51.0); Hemoglobin 10.9 g/dL (11.5-16.0); IMMATURE GRAN ABSOLUTE AUTO 0.03 K/mm3 (0.00-0.10); IMMATURE GRAN PERCENT AUTO 1 % (0-1); LYMPHOCYTES ABSOLUTE AUTO 0.51 K/mm3 (0.84-5.20); LYMPHOCYTES PERCENT AUTO 8 % (21-46); MONOCYTES ABSOLUTE AUTO 0.59 K/mm3 (0.16-1.47); MONOCYTES PERCENT AUTO 9 % (4-13); Mean Corpuscular HGB 29.2 pg (26.0-34.0); Mean Corpuscular HGB Conc 28.4 g/dL (31.5-36.5); Mean Corpuscular Volume 103 fL (80-100); Mean Platelet Volume 10.2 fL (9.1-12.4); NEUTROPHILS ABSOLUTE AUTO 5.32 K/mm3 (1.96-9.15); NEUTROPHILS PERCENT AUTO 82 % (41-73); Platelet Count 126 K/mm3 (150-400); RDW Coefficient Variation 14.8 % (11.7-14.2); RDW Standard Deviation 56.8 fL (35.1-46.3); Red Blood Cell Count 3.73 M/mm3 (3.80-5.20); White Blood Cell Count 6.53 K/mm3 (4.00-11.30)
[2022-08-09 05:15] LABS: Albumin, Blood 2.9 g/dL (3.4-5.0); Bilirubin, Total 0.3 mg/dL (0.1-1.0); Bun/Creatinine Ratio 31.6 (12.0-20.0); Creatinine, Blood 1.17 mg/dL (0.40-1.00); Globulin, Blood 2.9 g/dL (2.2-4.0); Potassium, Blood 4.3 mmol/L (3.5-5.5); Total Protein, Blood 5.8 g/dL (6.4-8.2)
--- NOTE | 2022-08-09 09:48 | NUR ---
Spiritual Care Request. Pt. is sitting up in a chair and is somnilent, but responds when I enter the room. Pt. had a difficult time focusing on our conversation, but declined spiritual care at this time. Pt. agreed to allow this winding machine operator to check on her later in the day. Pt. became sominlent before conversation completed. Will remain available.
--- NOTE | 2022-08-09 13:04 | NUR ---
Brief supportive visit this afternoon. Pt resting in bed receiving assistance by PURCHASE REQUEST EDITOR with eating lunch. Pt is pleasantly confused. Pt appears lethargic and weak. Wearing oxygen at 3L per min via NC. Ended visit to allow Pt to rest. Spoke with Primary RN Elijah and discussed case. Pt requiring considerable assistance with ADLs. Called and spoke with Pt's son Simon. Reviewed plan of care and provided update. Simon reports being at work and will be at the hospital around 1600. Palliative Care will F/U when son arrives.
--- NOTE | 2022-08-09 16:22 | NUR ---
Pt's son Simon has arrived. Met with Char in Pt's room. Pt resting in bed with her eyes closed for most of the visit opening her eyes occasionaly. Pt appears significantly lethargic. No S/S of distress noted. Engaged in therapeutic conversation regarding advanced care planning. Educated on disease process including trajectory. Discussed hospice as an option. Difficult to keep Simon on track with conversation and tends to go on tagents. Continued therapeutic listening and answered questions. Dr Shine in to provide update and review plan of care with guerline Montes. Questions answered. Ended visit to allow son to visit with Pt. Palliative Care will remain available.
[2022-08-09 16:42] LABS: PCO2 Venous 95.7 mmHg (38-42); pH Blood Venous 7.24 (7.34-7.37)
--- NOTE | 2022-08-09 17:52 | NUR ---
PT IS DROWYS, DOES RESPOND TIME VERBAL STIMULI. PT IS HYPERCAPNIC. VBG ORDERED BY DR. JAVIER PH CRITICAL LOW PCO2 HIGH, BIPAP ORDERED AND APPLIED PT TRANSFERED TO PCU [address] JAVIER ORDER. REPORT GIVEN TO BERNA IN PCU. EARLIER THIS AM THE PT WAS ABLE TO GET UP INTO THE CHAIR AND TO THE BSC WITH 1-2 PERSON ASSIST. O2 @ 3L/MIN O2 SAT'S > 90%
--- NOTE | 2022-08-09 18:16 | NUR ---
Shift Summary Pt arrived to PCU on bed with BIPAP in place. Pt has not responded to any verbal stimuli, they will withdraw from gentle touch. An assessment was performed and recorded on arrival, see SHIFT ASSESSMENT for findings. Pt is lying in bed and does not appear to be in any pain or discomfort at this time.
[2022-08-09 19:14] LABS: Base Excess Venous 14.7 mmol/L; Bicarbonate Venous 34.8 mmol/L (24.0-30.0); PCO2 Venous 95.4 mmHg (38-42); pH Blood Venous 7.25 (7.34-7.37)
[2022-08-09 21:11] LABS: Base Excess Venous 19.3 mmol/L; Bicarbonate Venous 39.4 mmol/L (24.0-30.0); PCO2 Venous 65.3 mmHg (38-42); pH Blood Venous 7.43 (7.34-7.37)
[2022-08-10 03:09] LABS: Base Excess Venous 15.7 mmol/L; Bicarbonate Venous 35.3 mmol/L (24.0-30.0); PCO2 Venous 69.6 mmHg (38-42); pH Blood Venous 7.38 (7.34-7.37)
[2022-08-10 03:34] LABS: BASOPHILS ABSOLUTE AUTO 0.02 K/mm3 (0.00-0.23); BASOPHILS PERCENT AUTO 0 % (0-2); EOSINOPHILS ABSOLUTE AUTO 0.01 K/mm3 (0.00-0.68); EOSINOPHILS PERCENT AUTO 0 % (0-6); Hemoglobin 11.3 g/dL (11.5-16.0); IMMATURE GRAN ABSOLUTE AUTO 0.04 K/mm3 (0.00-0.10); IMMATURE GRAN PERCENT AUTO 1 % (0-1); LYMPHOCYTES ABSOLUTE AUTO 0.69 K/mm3 (0.84-5.20); LYMPHOCYTES PERCENT AUTO 9 % (21-46); MONOCYTES ABSOLUTE AUTO 0.42 K/mm3 (0.16-1.47); MONOCYTES PERCENT AUTO 5 % (4-13); Mean Corpuscular HGB 30.3 pg (26.0-34.0); Mean Corpuscular HGB Conc 30.5 g/dL (31.5-36.5); Mean Corpuscular Volume 99 fL (80-100); Mean Platelet Volume 10.1 fL (9.1-12.4); NEUTROPHILS ABSOLUTE AUTO 6.95 K/mm3 (1.96-9.15); NEUTROPHILS PERCENT AUTO 86 % (41-73); Platelet Count 137 K/mm3 (150-400); RDW Coefficient Variation 14.6 % (11.7-14.2); RDW Standard Deviation 53.4 fL (35.1-46.3); Red Blood Cell Count 3.73 M/mm3 (3.80-5.20); White Blood Cell Count 8.13 K/mm3 (4.00-11.30)
[2022-08-10 03:49] LABS: Bun/Creatinine Ratio 39.4 (12.0-20.0); Calcium, Blood 9.4 mg/dL (8.5-10.1); Creatinine, Blood 1.09 mg/dL (0.40-1.00); Potassium, Blood 4.2 mmol/L (3.5-5.5)
--- NOTE | 2022-08-10 06:20 | NUR ---
SHIFT SUMMARY: [place] HAS BEEN LABILE, SOMNULENT AT TIMES AND AGITATED AT OTHERS. UNABLE TO MAKE NEEDS KNOWN. AT TIMES ABLE TO GIVE YES OR NO ANSWER BUT IS NOT CONSISTANT. POOR PLETH ON ALL EXTREMITIES BUT WHEN READING O2 SATS IN MID 90'S. PT GIVEN ATIVAN X 1 DUE TO PULLING BIPAP OFF WITH GOOD RESULTS. BP LABILE, ELEVATED WHEN AGITATED, SOFT WHEN RELAXED. MAP > 65. HR IN A-FIB, RATE IN 80'S. INCREASED OT 140'S WITH AGITATION BUT DECREASES AFTER RELAXING.
[2022-08-10 08:38] LABS: Source, Urine Foley catheter
[2022-08-10 08:47] LABS: Appearance, Urine Clear (Clear); Bilirubin, Urine Neg (Neg); Blood, Urine 1+ (Neg); Color, Urine Yellow (P-Yellow); Glucose Qualitative, Urine Neg (Neg); Ketones, Urine 3+ (Neg); Leukocyte Esterase, Urine Neg (Neg); Nitrite, Urine Neg (Neg); Protein, Urine 2+ (Neg); Urobilinogen, Urine NORM (Normal)
[2022-08-10 09:05] LABS: Bacteria Rare /hpf; Hyaline Casts 0-2 /lpf (0-2); Red Blood Cells, Urine 0-2 /hpf (0-2); Squamous Epithelial Cells Rare /hpf (Few); White Blood Cells, Urine 0-2 /hpf (0-5)
[2022-08-10 09:29] LABS: Base Excess Venous 15.9 mmol/L; Bicarbonate Venous 37.2 mmol/L (24.0-30.0); PCO2 Venous 54.6 mmHg (38-42); pH Blood Venous 7.47 (7.34-7.37)
[2022-08-10 12:09] LABS: Bicarbonate Venous 37.4 mmol/L (24.0-30.0); PCO2 Venous 61.2 mmHg (38-42); pH Blood Venous 7.43 (7.34-7.37)
[2022-08-10 14:19] LABS: Bun/Creatinine Ratio 39.6 (12.0-20.0); Calcium, Blood 8.9 mg/dL (8.5-10.1); Creatinine, Blood 1.11 mg/dL (0.40-1.00); Potassium, Blood 3.4 mmol/L (3.5-5.5)
--- NOTE | 2022-08-10 17:03 | NUR ---
Shift Summary Pt has been in bed throughout the day. Pt has been obtunded. Pt will become more alert and reach for BIPAP mask, though they are too weak to remove it they can reposition it enough to require it to be replaced and repositioned by staff. Pt has mostly appeared to be sleeping, they have been minimally responsive to loud verbal stimuli and have not responded to any questions or commands. Alcaraz catheter was placed in the morning according to provider orders. Family was at the bedside for several hours and had to be asked on multiple occasions to not remove BIPAP mask or give pt water. SBP has been labile, 86-156.
[2022-08-10 18:37] LABS: Base Excess Venous 15.9 mmol/L; Bicarbonate Venous 37.1 mmol/L (24.0-30.0); PCO2 Venous 66.9 mmHg (38-42); pH Blood Venous 7.39 (7.34-7.37)
--- NOTE | 2022-08-10 21:21 | NUR ---
ASSUMED PT CARE FROM FELIPE FARAH ON [facility]SHI. PT HAS BEEN DROWSY BUT ABLE TO AROUSE. IS ABLE TO GIVE OCCASIONAL ANSWER TO YES OR NO QUESTIONS BUT IS NOT CONSISTANT. ORIENTED TO SELF. AIRVO IN PLACE, PT NEED REMINDERS TO KEEP IN PLACE, COMPLAINS OF DISCOMFORT IN NOSE, ATTEMPTED TO RELIEVE BY REPOSITIONING AIRVO, WILL MONITOR. MOUT CAER PERFORMED. REPOSITIONED FOR COMFORT. FROST CATHETER IN PLACE DRAINING CLEAR, YELLOW URINE. EVENING MEDICATIONS HELD DUE TO SOMNULENCE, DIFFICUTLY FOLLOWING DIRECTIONS. VSS AT THIS TIME. MAP > 65.
[2022-08-11 04:11] LABS: BASOPHILS ABSOLUTE AUTO 0.01 K/mm3 (0.00-0.23); BASOPHILS PERCENT AUTO 0 % (0-2); EOSINOPHILS ABSOLUTE AUTO 0.03 K/mm3 (0.00-0.68); EOSINOPHILS PERCENT AUTO 1 % (0-6); IMMATURE GRAN ABSOLUTE AUTO 0.01 K/mm3 (0.00-0.10); IMMATURE GRAN PERCENT AUTO 0 % (0-1); LYMPHOCYTES PERCENT AUTO 22 % (21-46); MONOCYTES ABSOLUTE AUTO 0.54 K/mm3 (0.16-1.47); MONOCYTES PERCENT AUTO 12 % (4-13); Mean Corpuscular HGB 30.1 pg (26.0-34.0); Mean Corpuscular HGB Conc 31.3 g/dL (31.5-36.5); Mean Corpuscular Volume 96 fL (80-100); Mean Platelet Volume 10.6 fL (9.1-12.4); NEUTROPHILS ABSOLUTE AUTO 3.07 K/mm3 (1.96-9.15); NEUTROPHILS PERCENT AUTO 66 % (41-73); Platelet Count 135 K/mm3 (150-400); RDW Coefficient Variation 14.8 % (11.7-14.2); RDW Standard Deviation 52.8 fL (35.1-46.3); Red Blood Cell Count 3.32 M/mm3 (3.80-5.20); White Blood Cell Count 4.66 K/mm3 (4.00-11.30)
[2022-08-11 04:29] LABS: Albumin, Blood 2.8 g/dL (3.4-5.0); Bilirubin, Total 0.6 mg/dL (0.1-1.0); Calcium, Blood 8.8 mg/dL (8.5-10.1); Creatinine, Blood 0.98 mg/dL (0.40-1.00); Globulin, Blood 2.7 g/dL (2.2-4.0); Potassium, Blood 3.5 mmol/L (3.5-5.5); Total Protein, Blood 5.5 g/dL (6.4-8.2)
--- NOTE | 2022-08-11 04:59 | NUR ---
SHIFT SUMMARY: PT HAS CONTINUED TO BE ORIENTED TO SELF THROUGHOUT SHIFT. NO ACUTE CHANGES TO MENTATION OR MOOD DURING SHIFT. O2 SATS HAVE REMAINED > 92% ON BIPAP AND AIRVO. AT TIMES YELLING OUT, UNABLE TO EXPLAIN WHY. ORAL CARE PREFORMED. REPOSITIONED FOR COMFORT. HR A-FIB IN THE 70'S-80. NO ACUTE CHANGES NOTED DURING THIS SHIFT.
[2022-08-11 07:21] LABS: Bicarbonate Venous 37.4 mmol/L (24.0-30.0); PCO2 Venous 43.7 mmHg (38-42)
[2022-08-11 07:22] LABS: pH Blood Venous 7.54 (7.34-7.37)
--- NOTE | 2022-08-11 17:03 | NUR ---
SHIFT SUMMARY PT IS ALERT TO SELF, PLACE, FAMILY BUT CANNOT RECALL WHY SHE CAME TO HOSPITAL. HER MENTATION HAS IMPROVED DURING SHIFT BEING THIS AM SHE COULD ONLY STATE FIRST NAME AND MONTH OF BIRTHDAY AND NOW IS COMPLETELY ORIENTED TO SELF. SHE HAS ALSO BEEN ABLE TO USE HER CALL LIGHT APPROPRIATELY AND IS ABLE TO MAKE HER NEEDS KNOWN. SPO2 IS NOW 96% VIA 1L NC. PT IS NOTED TO BE A SHALLOW BREATHER. HR HAS BEEN AFIB IN 70'S PER TELE REPORT, BP STABLE. FROST CATHETER IS DRAINING STRAW YELLOW OUTPUT TO GRAVITY. PT HAS HAD 2 EPISODES OF DIARRHEA, BOTH OCCURING AFTER MEALTIME. SHE HAS HAD GOOD PO INTAKE DURING SHIFT. PG IN [place] IS SALINE LOCKED. SHE IS ABLE TO PROVIDE SOME ASSISTANCE WITH TURNING BUT CANNOT SHIFT POSITION IN BED, Q2 TURNING IMPLIMENTED TO PREVENT SKIN BREAKDOWN. PT SON HAS BEEN AT BEDSIDE ON AND OFF DURING SHIFT. PT IS NOW WATCHING TV, CALL LIGHT IS WITHIN REACH. WILL CONTINUE TO MONITOR UNTIL REPORT IS GIVEN.
--- NOTE | 2022-08-11 20:40 | NUR ---
ASSUMED PT CARE FORM LUL RN ON . PT RESTING IN BED. RESPIRATIONS EVEN BUT SHALLOW. DENIES FEELINGS OF SOB. O2 SATS > 92% ON 1 LPM. PT IS ORIENTED X3. SPEECH IS SLURRED DUE TO LACK OF DENTURES, DIFFICULT TO UNDERSTAND BUT ANSWERS QUESTIONS CORRECTLY. MEDICATED FOR PAIN IN ABDOMEN AND FEET BILATERALLY. DENIES ANY CHEST PAIN. FROST CATHETER IN [place], DRAINING CLEAR YELLOW URINE WITHOUT DIFFICULTY. DENIES NEEDS AT THIS TIME. CALL LIGHT IN REACH.
[2022-08-12 00:52] LABS: Bicarbonate Venous 40.3 mmol/L (24.0-30.0); PCO2 Venous 56.3 mmHg (38-42); pH Blood Venous 7.49 (7.34-7.37)
[2022-08-12 03:55] LABS: BASOPHILS PERCENT AUTO 0 % (0-2); EOSINOPHILS ABSOLUTE AUTO 0.07 K/mm3 (0.00-0.68); EOSINOPHILS PERCENT AUTO 2 % (0-6); Hematocrit 33.9 % (33.0-51.0); Hemoglobin 10.2 g/dL (11.5-16.0); IMMATURE GRAN ABSOLUTE AUTO 0.01 K/mm3 (0.00-0.10); IMMATURE GRAN PERCENT AUTO 0 % (0-1); LYMPHOCYTES ABSOLUTE AUTO 0.96 K/mm3 (0.84-5.20); LYMPHOCYTES PERCENT AUTO 22 % (21-46); MONOCYTES ABSOLUTE AUTO 0.61 K/mm3 (0.16-1.47); MONOCYTES PERCENT AUTO 14 % (4-13); Mean Corpuscular HGB 29.4 pg (26.0-34.0); Mean Corpuscular HGB Conc 30.1 g/dL (31.5-36.5); Mean Corpuscular Volume 98 fL (80-100); Mean Platelet Volume 10.2 fL (9.1-12.4); NEUTROPHILS ABSOLUTE AUTO 2.71 K/mm3 (1.96-9.15); NEUTROPHILS PERCENT AUTO 62 % (41-73); Platelet Count 129 K/mm3 (150-400); RDW Coefficient Variation 14.7 % (11.7-14.2); RDW Standard Deviation 52.8 fL (35.1-46.3); Red Blood Cell Count 3.47 M/mm3 (3.80-5.20); White Blood Cell Count 4.36 K/mm3 (4.00-11.30)
[2022-08-12 04:16] LABS: Bun/Creatinine Ratio 48.5 (12.0-20.0); Calcium, Blood 8.7 mg/dL (8.5-10.1); Creatinine, Blood 1.01 mg/dL (0.40-1.00); Potassium, Blood 3.1 mmol/L (3.5-5.5)
--- NOTE | 2022-08-12 04:24 | NUR ---
SHIFT SUMMARY: PT HAS BEEN AWAKE THROUGHOUT SHIFT, ORIENTATION CHANGES, AT TIMES ORIENTED X 3 AT OTHERS ORIENTED X 1. MOOD VASILATES FROM PLEASENT AND THANKFUL "FOR THE BEST CARE" TO "YOUR TRYING TO KILL ME". PT VERY RESISTANT TO WEARING BIPAP. PT LEFT ON O2 DUE TO VBG RESULTS, DISCUSSED WITH RT. O2 SATS REMAIN IN HIGH 90'S WHEN ON 1 LPM, IF O2 REMOVED DROPS INTO 70'S IN LESS THEN A MINUTE. PT ENCOURAGED TO KEEP O2 ON AND NOT REMOVE IT. HR CONTINUES IN A-FIB 80'S. OBSERVED THAT PT'S RIGHT PUPIL DILATED AT 4 MM AND SLUGGISH WHILE LEFT PUPIL DILATED AT 3 MM AND BRISK. NO OTHER CHANGES NOTED. NO FACIAL DROOP OBSERVED, BILATERAL HAND GRASPS EVEN, SPEECH AND MENTATION REMAIN UNCHANGED. NO CHANGES NOTED IN VITAL SIGNS. DR. AGUILERA INFROMED OF DIFFERENCE IN PUPIL SIZE. INSTRUCTED TO MONITOR AT THIS TIME. NO FURTHER ORDER RECEIVED.
--- NOTE | 2022-08-12 07:18 | NUR ---
PT REMOVING NC, O2 DROPING INTO 80'S. PT REFUSING TO PLACE NC BACK ON, IMMEDIATELY REMOVING NC WHEN PLACED ON NOSE STATING "I'M NOT GOING TO WEAR THAT". UNABLE TO EDUCATE PT OR REORIENT. PT PLACED IN BILATERAL SOFT WRIST RESTRAINTS FOR PT SAFETY AT 0630. PT LYING COMFORTABLY IN BED WATCHING TV. ATTEMPTED TO CALL DR. AGUILERA UNSUCESSFULLY. DR. ESPINAL ROUNDING ON UNIT AT 0645. INFORMED PT PLACED IN RESTRAINTS.
--- NOTE | 2022-08-12 10:22 | NUR ---
AM NOTE: PATIENT ALERT TO SELF AND FAMILY. CONFUSED AND AT TIMES TALKING ABOUT A GIRL IN THE ROOM THAT IS NOT PRESENT. DENIES NUMBNESS/TINGLING. RIGHT PUPIL SLIGHLTY LARGER THAN LEFT. BOTH REACTIVE TO LIGHT. DR. ESPINAL AWARE. AT TIMES MORE AGGITATED AND NOT COOPERATIVE WITH CARE. OVERALL WEAK AND FRAGILE. BILATERAL INSPECTOR MOTOR VEHICLES STRENGTH AND ARM MOVEMENTS. UPON SHIFT START PATIENT IN BILATERAL WRIST RESTRAINTS. ABLE TO DISCONTINUE RESTRAINTS AT 0820. SON AT BEDSIDE. LUNGS SOUNDING CLEAR IN UPPERS AND DIM/COARSE IN BASES. ON 1L NASAL CANNULA SATING ABOVE 95%. DENIES SOB. TELE SHOWING AFIB WITH HR 70-90'S. DENIES CHEST PAIN/PRESSURE. PPP. VITAL SIGNS STABLE. DENIES ABDOMINAL PAIN/NAUSEA. TOLERATING PO DIET. TAKING PILLS WHOLE WITH WATER. POTASSIUM INFUSING VIA POWERGLIDE IN LEFT UPPER ARM. BED BATH GIVEN THIS AM. GOAL TO GET TO BEDSIDE COMMODE TODAY. PT/OT ORDERED. DR. ESPINAL BY THIS AM. SON POSSIBLY INTERESTED IN DISCHARGE WITH HOSPICE SERVICES, WILL DISCUSS CASE WITH [facility] [facility]. SON AT BEDSIDE FOR DR. ESPINAL VISIT THIS AM. PATIENT RESTING IN BED AT THIS TIME. CALL LIGHT IN REACH. WILL CONTINUE TO MONITOR.
--- NOTE | 2022-08-12 10:56 | NUR ---
THIS RN, DR. ESPINAL, AND MAPPING TECHNICIAN DISCUSSION ON POSSIBLE DISCHARGE WED WITH HOSPICE. MAPPING TECHNICIAN TO DISCUSS SPECIFICS WITH SON. PATIENT AND SON BOTH UPDATED AND STILL INTERESTED IN HOSPICE SERVICES.
--- NOTE | 2022-08-12 18:21 | NUR ---
SHIFT SUMMARY: NO ACUTE CHANGES, SEE PREVIOUS NOTE. PATIENT UP TO BSC WITH 1-2 PERSON ASSIST MULTIPLE TIMES TODAY. MULTIPLE SMALL BM'S. WORKED WITH PT/OT. SON REMAINS AT BEDSIDE THROUGHOUT SHIFT. VITAL SIGNS REMAIN STABLE. TELE CONTINUES TO SHOW AFIB WITH HR 80'S. TOLERATING PO DIET. FROST CATH REMAINS IN PLACE DRAINING CLEAR/YELLOW URINE. CASE MANAGEMENT CALLED AND UPDATED ON SONS QUESTIONS REGARDING HOSPICE. CALL LIGHT IN REACH. WILL CONTINUE TO MONITOR AND REPORT OFF.
[2022-08-13 05:17] LABS: BASOPHILS ABSOLUTE AUTO 0.01 K/mm3 (0.00-0.23); BASOPHILS PERCENT AUTO 0 % (0-2); EOSINOPHILS ABSOLUTE AUTO 0.07 K/mm3 (0.00-0.68); EOSINOPHILS PERCENT AUTO 2 % (0-6); Hematocrit 37.5 % (33.0-51.0); Hemoglobin 10.7 g/dL (11.5-16.0); IMMATURE GRAN ABSOLUTE AUTO 0.02 K/mm3 (0.00-0.10); IMMATURE GRAN PERCENT AUTO 1 % (0-1); LYMPHOCYTES ABSOLUTE AUTO 1.02 K/mm3 (0.84-5.20); LYMPHOCYTES PERCENT AUTO 23 % (21-46); MONOCYTES ABSOLUTE AUTO 0.61 K/mm3 (0.16-1.47); MONOCYTES PERCENT AUTO 14 % (4-13); Mean Corpuscular HGB 29.2 pg (26.0-34.0); Mean Corpuscular HGB Conc 28.5 g/dL (31.5-36.5); Mean Platelet Volume 10.4 fL (9.1-12.4); NEUTROPHILS ABSOLUTE AUTO 2.66 K/mm3 (1.96-9.15); NEUTROPHILS PERCENT AUTO 61 % (41-73); Platelet Count 133 K/mm3 (150-400); RDW Coefficient Variation 14.8 % (11.7-14.2); RDW Standard Deviation 56.4 fL (35.1-46.3); Red Blood Cell Count 3.66 M/mm3 (3.80-5.20); White Blood Cell Count 4.39 K/mm3 (4.00-11.30)
[2022-08-13 05:29] LABS: Mean Corpuscular Volume 103 fL (80-100)
[2022-08-13 05:51] LABS: Albumin, Blood 2.8 g/dL (3.4-5.0); Anion Gap 1 mmol/L (6-16); Blood Urea Nitrogen 33 mg/dL (8-24); Bun/Creatinine Ratio 43.7 (12.0-20.0); CO2, Blood 41 mmol/L (21-32); Calcium, Blood 9.1 mg/dL (8.5-10.1); Chloride, Blood 105 mmol/L (98-108); Creatinine, Blood 0.76 mg/dL (0.40-1.00); Glomerular Filtration Rate 79 (60-); Glucose, Blood 103 mg/dL (70-99); Phosphorus, Blood 3.9 mg/dL (2.5-4.9); Potassium, Blood 3.9 mmol/L (3.5-5.5); Sodium, Blood 147 mmol/L (136-145)
--- NOTE | 2022-08-13 06:20 | NUR ---
SHIFT SUMMARY PT ALERT. ORIENTATION WAXES AND WANES. PT REFUSES TREATMENT AND EASILY AGITATED AT TIMES, THEN OTHERWISE PLEASANT. AFEBRILE. HR AFIB 70-90'S. BP STABLE. ON 1L NC WHILE AWAKE, SATS OVER 98%. APNEIC AT NIGHT, ABLE TO MAINTAIN SATS OVER NC IN MOUTH. Q2 TURNS. FROST IN PLACE DRAINING YELLOW URINE TO GRAVITY. IN BED SLEEPING WITH CALL ALARM AT SIDE, WILL CONTINUE TO MONITOR UNTIL REPORT GIVEN TO ONCOMING RN
--- NOTE | 2022-08-13 16:00 | NUR ---
DISCHARGE TEACHING COMPLETED WITH PT'S SON CESARIO INCLUDING FOLLOW UP APPOINTMENTS, MEDICATION LIST AND EDUCATION. HE STATES UNDERSTANDING AND HAS NO QUESTIONS OR CONCERNS AT THIS TIME. ALL BELONGINGS SENT HOME WITH PT. NO VASCULAR ACCESS TO DC. PT ABLE TO STAND AND AMBULATE WITH ASSISTANCE AND FWW. NO FURTHER DISCHARGE NEEDS IDENTIFIED AT THIS TIME. HOME HEALTH NOTIFIED OF PT'S DISCHARGE.
== END 2022-08-13 16:21 | disposition hospice, home (50) | DRG 291 ==
LOC: ER 01:08 → ERHOLD 06:02 → MEDS 12:57 → PCU 08-09 17:29
PROVIDERS: Family Medicine; Internal Medicine; Student in an Organized Health Care Education/Training Program; ADMIT Internal Medicine
PROC: 5A09357 Assistance with Respiratory Ventilation, Less than 24 Consecutive Hours, Continuous Positive Airway Pressure (ICD-10-PCS; principal; 2022-08-13)
DX: I11.0 Hypertensive heart disease with heart failure (principal); G93.41 Metabolic encephalopathy; I50.23 Acute on chronic systolic (congestive) heart failure; J96.21 Acute and chronic respiratory failure with hypoxia; J96.22 Acute and chronic respiratory failure with hypercapnia; M81.0 Age-related osteoporosis without current pathological fracture; M54.9 Dorsalgia, unspecified; M19.90 Unspecified osteoarthritis, unspecified site; M41.9 Scoliosis, unspecified; G89.29 Other chronic pain; H54.7 Unspecified visual loss; Z96.652 Presence of left artificial knee joint; Z96.643 Presence of artificial hip joint, bilateral; E78.5 Hyperlipidemia, unspecified; Z66 Do not resuscitate; I25.10 Atherosclerotic heart disease of native coronary artery without angina pectoris; I48.91 Unspecified atrial fibrillation; F41.9 Anxiety disorder, unspecified; Z85.828 Personal history of other malignant neoplasm of skin; Z88.8 Allergy status to other drugs, medicaments and biological substances; Z90.49 Acquired absence of other specified parts of digestive tract; Z98.890 Other specified postprocedural states; Z87.891 Personal history of nicotine dependence; Z79.02 Long term (current) use of antithrombotics/antiplatelets; Z79.899 Other long term (current) drug therapy; I25.2 Old myocardial infarction
CPT/HCPCS: 0241U; 36415; 51702; 71045; 80048; 80053; 80069; 81001; 82550; 82803; 83880; 84145; 84484; 85025; 93005; 93010; 94660; 94762; 96374; 96376; 97116; 97162; 97165; 97530; 97535; 99285-25; A9270; C1751; J1120; J1650; J1940; J2060; J2405; J3480; J7050

== ENCOUNTER 2022-11-06 18:18 | Inpatient (IN) | payer MEDICARE, OTHER ==
[~2022-11-06] VITALS: Ht 165.1 cm; Wt 77.1 kg
[~2022-11-06 18:18] MED LIST changes: +ANASTROZOLE1 M7 PO; +Acerola C500 MG PO; +FERROUS GLUCON324 M7 PO; +FOLI1 PO; +METO50ER PO
--- NOTE | 2022-11-06 22:31 | NUR ---
PT ADMITTED TO UNIT AT 2215 NON RESPONSIVE, LOCALIZES TO PAINFUL STIMULI. ON 15L NRB MASK. VSS. SKIN CHECK PERFORMED. SET UP SUCTION, [place]. UNABLE TO ADMIT ADEQUATELY DUE TO NONVERBAL STATE. WILL TURN Q2 AND PROVIDE INCONTINENCE CARE.
[2022-11-06] MEDS ORDERED: Acetaminophen650 M1 PO (22:58)
[2022-11-06] MEDS ORDERED: BUSP10 PO (22:58)
[2022-11-06] MEDS ORDERED: METO50ER PO (23:00)
[2022-11-06] MEDS ORDERED: SENN187 PO (23:00)
[2022-11-06] MEDS ORDERED: DULCOLAX400 MG/5 M PO (23:00)
[2022-11-06] MEDS ORDERED: HYOS.125 SL (23:10)
[2022-11-06] MEDS ORDERED: MORP20L PO (23:11)
[2022-11-06] MEDS ORDERED: Prochlorperazin10 MG PO (23:11)
--- NOTE | 2022-11-07 04:42 | NUR ---
NOT RESPONSIVE ON ADMISSION, BECAME RESPONSIVE AFTER 0100, COMPLAINED OF PAIN. PATIENT FELL ASLEEP SHORTLY AFTER. FENTANYL 12.5 MCG AVAILABLE PRN. VSS ON 15L O2 WITH CPAP, APPEARS COMFORTABLE. RT PLACED PATIENT ON CONT PULSE OXIMETER, SATURATION IN 90%'S. PATIENT ONLY ANSWERED YES/NO QUESTIONS, CONTINUE TO MONITOR FOR CHANGES.
[2022-11-07 11:21] LABS: Base Excess Venous 15.9 mmol/L; Bicarbonate Venous 35.8 mmol/L (24.0-30.0)
[2022-11-07 11:22] LABS: pH Blood Venous 7.14 (7.34-7.37)
[2022-11-07 11:23] LABS: PCO2 Venous > 104 mmHg (38-42)
--- NOTE | 2022-11-07 11:35 | NUR ---
CRITICAL VBG VALUES REPORTED TO DR. REDD.
--- NOTE | 2022-11-07 14:28 | NUR ---
Ethics consult order processed. Case notes, prognostic indicators, and advance care planning instruments reviewed. The principal is reported to be suffering from excacerbated chronic systolic heart failure and hypoxemia. She is said to be relatively unresponsive with a stationay disposition. According to her [place] Advance Directive, she prefers a non-aggressive course of care. If she is close to , then per her instructions, her physician may decide about the clinical appropriateness of using mechanically administered nutrition and hydration and other forms of life support. If she is permanently unconscious and recovery is improbable, then she refuses all forms of life support. If she is afflicted with a terminal and progressive illness and she is unable to communicate, swallow food and water safely, recognize others, administer self care, and she is unlikely to improve, then she would like to forgo all forms of life suppport. Finally, if life support will not reasonably help her medical condition, and will cause permanent and severe pain or suffering, then such measures must be discontinued, and a hospice election pursued. The principal has been abundantly clear, that no one, including her health care sales representative meats, has the right or privilege to override, or disregard these instructions. It should also be mentioned that she refuses the administration of all blood products. This declination is predicated on her christian background and affiliation. As a closing note, it has been mentioned that the patient has a POLST on file as well. There is no contradiction or discrepency as the physician order for life sustaining treatments is not relevant or applicable in instances where the principal is in one of the conditions described above. Here we default to the advance directive. Thank you for this consult. Jose Luis Tavera, PhD, MARLINE
--- NOTE | 2022-11-07 17:47 | NUR ---
SHIFT SUMMARY PT UNREPONSIVE AT THE START OF THE SHIFT, USING A BIPAP. SHE HAS SENSE BEEN PUT ON A HIGH FLOW NC, 8L, AND TOLERATING WELL, SATING IN THE 90'S. SHE HAS C/O OF PAIN TWICE AND WAS MEDICATED PER THE [facility]. SHE ALSO C/O N AN WAS MEDICATED PER THE [facility]. PLEASE READ FOOTWEAR MACHINERY INSTRUCTOR NOTES IN REGARDS TO PLACEMENT ETC. POTENTIALLY MOVING TO COMFORT CARE SOON, DEPENDING ON THE SON'S DECISION. PLEASE READ DR. COLUNGA PROGRESS NOTE FOR FURTHER INFORMATION. PALLIATIVE CARE IS INVOLVED WELL CASE MANAGEMENT. PT IS CURRENTLY RESTING PEACEFULLY, WILL REPORT TO ONCOMING NURSE.
--- NOTE | 2022-11-08 06:21 | NUR ---
PT BODY PICKED UP BY [employer]ORTUARY AT 0621. PT BELONGINGS IN EQUIPMENT ROOM. SON WAS NOTIFIED THAT BELONGINGS CAN BE PICKED UP.
== END 2022-11-08 03:40 | DRG 291 ==
LOC: ER 18:18 → MEDS 18:19
PROVIDERS: Hospitalist; ADMIT Internal Medicine
DX: I11.0 Hypertensive heart disease with heart failure (principal); G92.8 Other toxic encephalopathy; J96.01 Acute respiratory failure with hypoxia; J96.02 Acute respiratory failure with hypercapnia; I50.23 Acute on chronic systolic (congestive) heart failure; E87.3 Alkalosis; Z51.5 Encounter for palliative care; Z66 Do not resuscitate; M81.0 Age-related osteoporosis without current pathological fracture; E78.5 Hyperlipidemia, unspecified; M19.90 Unspecified osteoarthritis, unspecified site; K58.9 Irritable bowel syndrome, unspecified; R45.1 Restlessness and agitation; G89.29 Other chronic pain; M54.9 Dorsalgia, unspecified; I27.20 Pulmonary hypertension, unspecified; I25.10 Atherosclerotic heart disease of native coronary artery without angina pectoris; D64.9 Anemia, unspecified; D69.6 Thrombocytopenia, unspecified; E87.6 Hypokalemia; M41.9 Scoliosis, unspecified; I25.2 Old myocardial infarction; Z87.891 Personal history of nicotine dependence; Z90.49 Acquired absence of other specified parts of digestive tract; Z98.890 Other specified postprocedural states; Z88.8 Allergy status to other drugs, medicaments and biological substances; Z79.02 Long term (current) use of antithrombotics/antiplatelets; Z79.899 Other long term (current) drug therapy
CPT/HCPCS: 36415; 71045; 82803; 94660; 96361; 96374; 96375; 99285; G0378; J1940; J2405; J3010; J7040